=== PATIENT | male | born 1935 | race Caucasian/White ===

== ENCOUNTER 2021-01-02 11:44 | Emergency (ER) | payer MEDICARE, OTHER, SELFPAY ==
[2021-01-02 11:55] VITALS: BP 143/68; PULSE 68; RESP 18; TEMP 36.4; O2SAT 96; BMI 28.5
--- NOTE | 2021-01-02 12:06 | ECG_ITS ---
Test Reason : DIZZINESS Blood Pressure : / mmHG Vent. Rate : 063 BPM Atrial Rate : 063 BPM P-R Int : 146 ms QRS Dur : 078 ms QT Int : 402 ms P-R-T Axes : 044 -25 005 degrees QTc Int : 411 ms Normal sinus rhythm Inferior infarct , age undetermined Abnormal ECG No previous ECGs available Referred By: Generic ED Physician Electronically Signed By:Mani Domínguez
[2021-01-02 12:42] LABS: Glucose, Whole Blood 144 mg/dL (60-115)
[2021-01-02 12:43] LABS: MANUAL DIFF FLAG NO
[2021-01-02 12:53] LABS: Prothrombin Time 12.4 SEC (10.8-13.0)
[2021-01-02 13:18] LABS: Anion Gap 14 (12-20); Blood Urea Nitrogen 20 mg/dL (9-16); Calcium 9.3 mg/dL (8.4-10.2); Carbon Dioxide 21 mmol/L (22-29); Chloride 106 mmol/L (96-108); Creatinine Clr Calc Pharmacy 50.4; Estimated Glomerular Filt Rate > 60; Glucose Random 114 mg/dL (60-115); Potassium 4.4 mmol/L (3.3-5.1); Sodium 137 mmol/L (135-145)
[2021-01-02 13:23] LABS: Troponin-I High Sensitivity < 3.5 ng/L (<3.5-35.0)
[2021-01-02 14:33] LABS: Basophils Absolute Auto 0.1 X10*3/uL (0.0-0.2); Basophils Percent Auto 0.9 % (0-2); Eosinophils Absolute Auto 0.1 X10*3/uL (0.0-0.4); Eosinophils Percent Auto 1.4 % (0-4); Hematocrit 43.7 % (42-52); Hemoglobin 14.6 g/dl (14.0-18.0); Imm Gran Abs Auto 0.02 X10*3/uL (0.00-0.03); Imm Gran Pct Auto 0.2 % (0.0-0.4); Lymphocytes Absolute Auto 1.5 X10*3/uL (1.2-4.9); Lymphocytes Percent Auto 16.1 % (20-40); Mean Corpuscular HGB Conc 33.4 g/dl (31.0-36.0); Mean Corpuscular Hemoglobin 31.3 pg (27.0-33.0); Mean Corpuscular Volume 93.8 fL (80-98); Mean Platelet Volume 9.4 fL (9.4-12.4); Monocytes Absolute Auto 0.6 X10*3/uL (0.1-1.2); Neutrophils Absolute Auto 6.9 X10*3/uL (2.0-8.3); Neutrophils Percent Auto 75.4 % (45-73); Platelet Count 279 X10*3/uL (160-400); Red Blood Count 4.66 X10*6/uL (4.60-5.80); Red Cell Distribution Width 12.7 % (11.0-16.0); White Blood Count 9.1 X10*3/uL (4.8-10.8)
--- NOTE | 2021-01-02 14:49 | ECG_ITS ---
Test Reason : FALL Blood Pressure : / mmHG Vent. Rate : 076 BPM Atrial Rate : 076 BPM P-R Int : 156 ms QRS Dur : 076 ms QT Int : 388 ms P-R-T Axes : 099 -10 022 degrees QTc Int : 436 ms Sinus rhythm with occasional Premature ventricular complexes Inferior infarct (cited on or before 02-JAN-2021) Abnormal ECG When compared with ECG of 02-JAN-2021 12:27, Premature ventricular complexes are now Present Referred By: Hayde Alcantar Electronically Signed By:Mani Domínguez
--- NOTE | 2021-01-02 15:30 | ED_ITS ---
HPI - Dizziness General Chief Complaint: Dizziness Stated Complaint: fall Time Seen by Provider: 01/02/21 14:48 Source: patient and family () Mode of arrival: ambulatory Limitations: no limitations History of Present Illness HPI Narrative: Patient is an 85-year-old male the past medical history of diabetes, HTN and gout who presents with 1 week of on and off dizziness. He reports it is worse with positional changes, but today when he was walking into his living room, he suddenly became dizzy and had to hang on to items to avoid falling. He did not fall, hit his head or lose consciousness. He describes the dizziness as in being off balance. He has been managing it by taking his time getting out of bed with the a few minutes before changing positions and it has been fine until this morning when it happened while he was walking. He denies any chest pain, shortness of breath, fevers, cough, headache, abdominal pain, changes in his bladder or bowels. He states he has been eating and drinking his normal amount and did have breakfast this morning. Does note that when the dizziness happened, it was before he ate breakfast. He did not check his blood sugar before he ate breakfast and after breakfast it was reportedly 144. He denies any new medications. Related Data Allergies Allergy/AdvReac Type Severity Reaction Status Date / Time No Known Allergies Allergy Verified 01/02/21 12:05 Review of Systems Review of Systems: Yes all other systems are reviewed and are negative [facility] Past Medical History Medical History Diabetes Gout Hypertension Social History Social History Advance Directives: No Advance Directives Information Provided: No Physical Exam Vital Signs: Vital Signs: Last Vital Signs Temp 97.5 F 01/02/21 11:55 Pulse 68 01/02/21 11:55 Resp 18 01/02/21 11:55 BP 143/68 H 01/02/21 11:55 Pulse Ox 96 01/02/21 11:55 Body Mass Index 28.5 Const: General: cooperative, healthy appearing, comfortable, no acute distress and well developed Orientation/consciousness: patient oriented x3 Limitations: no limitations HENMT: Head: Yes normal to inspection Eyes: General: appearance normal, both eyes and all related structures Neck: Neck: Yes normal visual inspection and Yes full ROM Resp: Effort & Inspection: normal respiratory effort and able to speak in complete sentences Auscultation: clear to auscultation bilaterally Cardio: Rate: regular rate Rhythm: regular rhythm Heart sounds: normal S1 and S2 GI: Inspection: Yes normal to inspection Palpation (GI): Soft to palpation and nontender Skin: General skin exam: no rashes or lesions noted Neuro: General: patient oriented x3 Cranial nerves: Yes CN's II-XII intact bilaterally Motor exam (neuro): 5/5 motor strength present throughout and Pronator motor function not present Extrem: General: Yes normal to inspection Course Course Course Narrative: Patient is an 85-year-old male the past medical history of diabetes, HTN and gout who presents with 1 week of on and off dizziness, feeling off balance. VSS sans slightly elevated BP. PE was unremarkable. Will get EKG, orthostatics, labs, CXR and reassess. Reevaluation(s) Reevaluation #1: Notified by x-ray tech that patient is declining chest x-ray and is leaving. Patient approached an employee, told her he was leaving an asked her to cut off his wrist bracelet. Patient eloped. Labs WNL, UA negative. Orthostatic blood pressures were ordered but appear not to have been done yet. EKG normal sinus rhythm with PVCs 76 B p.m. and inferior infarct age undetermined. Time: 16:00 [facility] - Dizziness Medical Records Attestation: I reviewed the patient's medical records. Lab Data Attestation: I reviewed the patient's lab results. Result diagrams: 01/02/21 12:34 01/02/21 12:34 Labs: Lab Results 01/02/21 01/02/21 01/02/21 Range/Units 12:33 12:34 12:34 WBC 9.1 (4.8-10.8) X10*3/uL RBC 4.66 (4.60-5.80) X10*6/uL Hgb 14.6 (14.0-18.0) g/dl Hct 43.7 (42-52) % MCV 93.8 (80-98) fL MCH 31.3 (27.0-33.0) pg MCHC 33.4 (31.0-36.0) g/dl RDW 12.7 (11.0-16.0) % Plt Count 279 (160-400) X10*3/uL MPV 9.4 (9.4-12.4) fL Immature Gran % (Auto) 0.2 (0.0-0.4) % Neut % (Auto) 75.4 H (45-73) % Lymph % (Auto) 16.1 L (20-40) % [place] % (Auto) 6.0 (2-11) % Eos % (Auto) 1.4 (0-4) % Baso % (Auto) 0.9 (0-2) % Lymph # (Auto) 1.5 (1.2-4.9) X10*3/uL [place] # (Auto) 0.6 (0.1-1.2) X10*3/uL Eos # (Auto) 0.1 (0.0-0.4) X10*3/uL Baso # (Auto) 0.1 (0.0-0.2) X10*3/uL Abs Immat Gran (auto) 0.02 (0.00-0.03) X10*3/uL Absolute Neuts (auto) 6.9 (2.0-8.3) X10*3/uL Absolute Nucleated RBC 0.000 (0.0-0.012) X10*3/uL Nucleated RBC % (auto) 0.0 (0.0-0.2) /100WBC PT 12.4 (10.8-13.0) SEC INR 1.0 (0.9-1.1) Sodium (135-145) mmol/L Potassium (3.3-5.1) mmol/L Chloride (96-108) mmol/L Carbon Dioxide (22-29) mmol/L Anion Gap (12-20) BUN (9-16) mg/dL Creatinine (0.5-1.4) mg/dL Estim Creat Clear Calc Estimated GFR POC Glucose 144 H (60-115) mg/dL Random Glucose (60-115) mg/dL Calcium (8.4-10.2) mg/dL Troponin I High Sens (<3.5-35.0) ng/L Urine Color Urine Appearance Urine pH (5.0-8.0) Ur Specific [place] (1.005-1.025) Urine Protein (NEG-TRACE) MG/DL Urine Glucose (UA) (NEG) MG/DL Urine Ketones (NEG) MG/DL Urine Blood (NEG) Urine Nitrite (NEG) Ur Leukocyte Esterase (NEG) 01/02/21 01/02/21 01/02/21 Range/Units 12:34 12:34 15:38 WBC (4.8-10.8) X10*3/uL RBC (4.60-5.80) X10*6/uL Hgb (14.0-18.0) g/dl Hct (42-52) % MCV (80-98) fL MCH (27.0-33.0) pg MCHC (31.0-36.0) g/dl RDW (11.0-16.0) % Plt Count (160-400) X10*3/uL MPV (9.4-12.4) fL Immature Gran % (Auto) (0.0-0.4) % Neut % (Auto) (45-73) % Lymph % (Auto) (20-40) % [place] % (Auto) (2-11) % Eos % (Auto) (0-4) % Baso % (Auto) (0-2) % Lymph # (Auto) (1.2-4.9) X10*3/uL [place] # (Auto) (0.1-1.2) X10*3/uL Eos # (Auto) (0.0-0.4) X10*3/uL Baso # (Auto) (0.0-0.2) X10*3/uL Abs Immat Gran (auto) (0.00-0.03) X10*3/uL Absolute Neuts (auto) (2.0-8.3) X10*3/uL Absolute Nucleated RBC (0.0-0.012) X10*3/uL Nucleated RBC % (auto) (0.0-0.2) /100WBC PT (10.8-13.0) SEC INR (0.9-1.1) Sodium 137 (135-145) mmol/L Potassium 4.4 (3.3-5.1) mmol/L Chloride 106 (96-108) mmol/L Carbon Dioxide 21 L (22-29) mmol/L Anion Gap 14 (12-20) BUN 20 H (9-16) mg/dL Creatinine 1.12 (0.5-1.4) mg/dL Estim Creat Clear Calc 50.4 Estimated GFR > 60 POC Glucose (60-115) mg/dL Random Glucose 114 (60-115) mg/dL Calcium 9.3 (8.4-10.2) mg/dL Troponin I High Sens < 3.5 (<3.5-35.0) ng/L Urine Color YELLOW Urine Appearance CLEAR Urine pH 6.0 (5.0-8.0) Ur Specific [place] 1.010 (1.005-1.025) Urine Protein NEG (NEG-TRACE) MG/DL Urine Glucose (UA) NEG (NEG) MG/DL Urine Ketones NEG (NEG) MG/DL Urine Blood NEG (NEG) Urine Nitrite NEG (NEG) Ur Leukocyte Esterase NEG (NEG) ECG Data Attestation: I personally reviewed and interpreted this ECG as follows: Interpretation: [place] [id number] ReportDraft Patient: Kevon Montiel LMR#: [id number]: 1935cct:[id number]/Sex: 85 / MADM Date: 01/02/21Loc: [address]: Ordering Physician: Kailash ED Physician Date of Service: 01/02/21 Procedure(s): ECG 12 lead EKG Accession Number(s): [id number] cc: ~ Test Reason : DIZZINESS Blood Pressure : / mmHG Vent. Rate : 063 BPM Atrial Rate : 063 BPM P-R Int : 146 ms QRS Dur : 078 ms QT Int : 402 ms P-R-T Axes : 044 -25 005 degrees QTc Int : 411 ms Normal sinus rhythm Inferior infarct , age undetermined Abnormal ECG No previous ECGs available Referred By: Generic ED Physician Electronically Signed By: Dictated By:Signed By: RENETTA/ [id number] Discharge Plan Discharge Clinical Impression: Dizziness Patient Disposition: Elopement Discharge Date/Time: 01/02/21 16:02
[2021-01-02 15:50] LABS: Glucose Urine UA NEG (NEG); Leukocyte Esterase Urine NEG (NEG); Nitrite Urine NEG (NEG); Urine Blood NEG (NEG); Urine Ketones NEG (NEG); Urine Protein NEG (NEG-TRACE)
[2021-01-02 15:53] LABS: Appearance Urine CLEAR; Color Urine YELLOW
== END 2021-01-02 16:02 | disposition left against medical advice (07) ==
PROVIDERS: Physician Assistant; Emergency Provider Emergency Medicine Emergency Medical Services; PCP Internal Medicine
DX: R42 Dizziness and giddiness (principal); I10 Essential (primary) hypertension; E11.9 Type 2 diabetes mellitus without complications; Z79.899 Other long term (current) drug therapy
CPT/HCPCS: 36415; 80048; 81003; 82947; 84484; 85025; 85610; 93005; 99283

== ENCOUNTER 2021-05-28 18:00 | Outpatient (REF) | payer MEDICARE, OTHER, SELFPAY ==
--- NOTE | ~2021-05-28 | MR_ITS ---
EXAMINATION: MR BRAIN WITHOUT CONTRAST CLINICAL INFORMATION: 86-year-old with memory loss. COMPARISON: None FINDINGS: Brain Volume: There is moderate generalized diffuse brain parenchymal volume loss without disproportionate focal regional predominance within the limitations of a qualitative evaluation. Structural: No malformations. Brain and Meninges: DWI sequence demonstrates no restricted diffusion. Specifically, there is no evidence for acute or subacute cerebral ischemia/infarct. There are scattered patchy and punctate foci of FLAIR/T2 signal hyperintensity within the subcortical and deeper white matter of both cerebral hemispheres which are nonspecific findings but likely reflect zones of chronic ischemic microangiopathy in a patient of this age. There is prominent etat crible in the basal ganglia bilaterally. Note is made of a subcentimeter, bilobed cystic-appearing structure with some adjacent parenchymal T2 hyperintensity suggesting parenchymal gliosis located in the right cerebellar hemisphere adjacent to the inferior fourth ventricle, which is a nonspecific finding, likely of a benign etiology. There is a band-like zone of T2 hyperintensity within the right lingual and parahippocampal gyri without mass effect, which is of uncertain etiology. There is no evidence for hemorrhage, hemosiderin staining or abnormal mineral deposition. No extra-axial fluid collections are identified. Ventricles and Subarachnoid Spaces: There is a mild degree of third and lateral ventriculomegaly, likely reflecting volume loss. No definite hydrocephalus. Orbital Structures: Bilateral lens extractions are noted. Otherwise, the visualized orbital structures are grossly unremarkable within the limitations of the study. Vascular: Signal voids are noted in the visualized major intracranial vessels. Sinuses and Osseous Structures: Osseous marrow signal intensity appears unremarkable. There are mild degrees of mucosal thickening in the ethmoid complex and maxillary sinuses, and there is [id number] mucosal thickening in the sphenoid sinus on the right with probable inspissated secretions. MR/MR head/brain wo con IMPRESSION: 1. Moderate generalized diffuse brain parenchymal volume loss, as described above. 2. 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 Recommend additional imaging with contrast to further assess this at this point. 3. Small cystic focus in the right cerebellar hemisphere adjacent to the inferior fourth ventricle within the brain parenchyma. This could be related to a remote insult of indeterminate nature. Neoplastic disease is considered less likely. This can also be reevaluated on contrast-enhanced study. 4. Paranasal sinus inflammatory changes, as detailed above.
== END 2021-05-28 18:01 | disposition home or self-care (01) ==
LOC: HO.MRI 18:00
PROVIDERS: PCP Internal Medicine; Visit Provider Internal Medicine
DX: R41.3 Other amnesia (principal)
CPT/HCPCS: 70551

== ENCOUNTER 2021-06-16 12:02 | Outpatient (REF) | payer MEDICARE, OTHER, SELFPAY ==
--- NOTE | ~2021-06-16 | MR_ITS ---
EXAMINATION: MR BRAIN WITHOUT CONTRAST CLINICAL INFORMATION: Memory problems. Word finding difficulty. COMPARISON: Recent prior MRI from 05/28/2021. TECHNIQUE: Multiplanar, multisequence imaging of the brain was performed without contrast. FINDINGS: There is no abnormal parenchymal or leptomeningeal enhancement. Moderate diffuse parenchymal volume loss noted with concordant ex vacuo dilatation of the ventricles, as on recent prior imaging. The orbits and pituitary axis structures appear normal. Fluid level and significant mucosal thickening again evident in the right sphenoid sinus cavity. Small T2 hyperintense foci described on prior imaging in the right cerebellar white matter are without enhancement and remain indeterminate. No abnormal enhancement visible in the posterior mesial temporal lobe on the left side corresponding to the site of hyperintense signal change on prior imaging. MR/MR head/brain w con IMPRESSION: No abnormal parenchymal or leptomeningeal enhancement. No acute process. Signal abnormality in the posterior right hippocampus on the prior study remains indeterminate. In the setting of prior recent seizure activity, findings could be post ictal in etiology, and clinical correlation is suggested. Short interval follow-up imaging can be obtained to assess for resolution or interval change. Stable significant right sphenoid sinus mucosal disease and dependent fluid level; correlate for any acute symptomatology.
== END 2021-06-16 12:03 | disposition home or self-care (01) ==
LOC: HO.MRI 12:02
PROVIDERS: Visit Provider Internal Medicine
DX: R93.0 Abnormal findings on diagnostic imaging of skull and head, not elsewhere classified (principal); R41.3 Other amnesia; R47.89 Other speech disturbances
CPT/HCPCS: 70552; A9585

== ENCOUNTER 2021-07-19 15:07 | Outpatient (REF) | payer MEDICARE, OTHER, SELFPAY ==
[2021-07-19 16:49] LABS: Vitamin B12 730 pg/mL (200-900)
== END 2021-07-19 15:08 | disposition home or self-care (01) ==
LOC: HO.LAB 15:07
PROVIDERS: PCP Internal Medicine; Visit Provider Psychiatry & Neurology Neurology
DX: G30.9 Alzheimer's disease, unspecified (principal)
CPT/HCPCS: 36415; 82607

== ENCOUNTER 2021-07-24 09:54 | Emergency (ER) | payer MEDICARE, OTHER, SELFPAY ==
--- NOTE | ~2021-07-24 | XR_ITS ---
EXAMINATION: LEFT RIBS AND LEFT FOREARM CLINICAL INFORMATION: Fall with pain COMPARISON: Chest x-ray of March 11, 2019 TECHNIQUE: AP and lateral views of the left forearm. PA chest and 3 views of the left ribs. FINDINGS: AP and lateral views of the left forearm demonstrate a mildly displaced comminuted transverse fracture at the junctions of the mid and distal thirds of the ulna without significant angulation and with 3 mm of medial displacement of the distal fracture fragment. No regional fracture appreciated. PA view of the chest demonstrates left lower lobe and lingular scarring. No acute parenchymal disease is appreciated. No pneumothorax or significant pleural effusion. Heart normal size. No evidence of pulmonary edema. Status post previous chest surgery with clips in place.There is scoliosis of the thoracic spine convex left. 3 views of the left ribs demonstrate subpleural thickening and irregularity of a few superior left ribs posterior laterally consistent with previous fractures or surgery with what appears to be partial resection of posterior aspect of the left third rib. There is question of a possible acute or chronic anterior fracture of the left seventh rib. There appears be an acute nondisplaced fracture involving the anterior aspect of the left ninth rib. XR/XR ribs LT min 3V w CXR1V IMPRESSION: Transverse fracture junctions of the mid and distal thirds of the left ulna. Old left-sided rib fractures and resection. Probable nondisplaced anterior left ninth rib fracture.
--- NOTE | ~2021-07-24 | XR_ITS ---
EXAMINATION: LEFT RIBS AND LEFT FOREARM CLINICAL INFORMATION: Fall with pain COMPARISON: Chest x-ray of March 11, 2019 TECHNIQUE: AP and lateral views of the left forearm. PA chest and 3 views of the left ribs. FINDINGS: AP and lateral views of the left forearm demonstrate a mildly displaced comminuted transverse fracture at the junctions of the mid and distal thirds of the ulna without significant angulation and with 3 mm of medial displacement of the distal fracture fragment. No regional fracture appreciated. PA view of the chest demonstrates left lower lobe and lingular scarring. No acute parenchymal disease is appreciated. No pneumothorax or significant pleural effusion. Heart normal size. No evidence of pulmonary edema. Status post previous chest surgery with clips in place.There is scoliosis of the thoracic spine convex left. 3 views of the left ribs demonstrate subpleural thickening and irregularity of a few superior left ribs posterior laterally consistent with previous fractures or surgery with what appears to be partial resection of posterior aspect of the left third rib. There is question of a possible acute or chronic anterior fracture of the left seventh rib. There appears be an acute nondisplaced fracture involving the anterior aspect of the left ninth rib. XR/XR forearm LT 2V IMPRESSION: Transverse fracture junctions of the mid and distal thirds of the left ulna. Old left-sided rib fractures and resection. Probable nondisplaced anterior left ninth rib fracture.
[2021-07-24 10:19] VITALS: BP 131/77; PULSE 80; RESP 16; TEMP 36.8; O2SAT 95; BMI 29.7
--- NOTE | 2021-07-24 10:32 | ED.GENADULT ---
HPI - General Adult General Chief complaint: General Medical Stated complaint: fall l arm ribs Time Seen by Provider: 07/24/21 10:18 Source: patient Mode of arrival: ambulatory Limitations: no limitations History of Present Illness HPI narrative: 86-year-old male who presents to emergency department for evaluation of injuries after a fall down icy steps. Patient states that he has 3 steps leading out of his house. He states that they were IC and he fell from the top step down 3 steps. He landed on his left arm and on the left side of his chest. He denied any head injury. The injury occurred just prior to him coming to the emergency department. He is currently complaining of a sharp, moderate to severe left forearm pain. Points to the distal 3rd of his forearm very has a small hematoma when asked to localize the pain. He is also complaining left lateral and left posterior chest pain. This is a constant, sharp pain which is moderate in intensity, worse with breathing worse with movement. He denied any head injury. He denies headache and neck pain. He denies shortness of breath or dyspnea on exertion. He states that he was not ill prior to the fall. He has been vaccinated with 2 COVID-19 vaccines and also received a booster vaccine. Related Data Allergies Allergy/AdvReac Type Severity Reaction Status Date / Time No Known Allergies Allergy Unverified 04/16/20 14:58 Review of Systems Review of Systems: Yes all other systems are reviewed and are negative [facility] Past Medical History [facility] Narrative: Past medical history: Diabetes mellitus. Past surgical history benign left lung tumor. Social history: He is a former tobacco user. He stops smoking when he was 36 years old. He denies drug use. Medical History (Updated 07/24/21 @ 12:13 by Dennis Wiggins MD) Diabetes Social History Social History Advance Directives: Yes Advance Directives Information Provided: Yes Advance Directives on File: No Physical Exam Vital Signs: Vital Signs: Last Vital Signs Temp 98.2 F 07/24/21 10:19 Pulse 80 07/24/21 10:19 Resp 16 07/24/21 10:19 BP 131/77 07/24/21 10:19 Pulse Ox 95 07/24/21 10:19 BMI result Body Mass Index 29.7 Const: General: cooperative and no acute distress Orientation/consciousness: oriented to person and oriented to place Limitations: no limitations HENMT: Head: Yes normal to inspection, Yes normocephalic and Yes atraumatic Ears: external ears normal General nose exam: Normal external nose present Face and sinus: Yes normal facial exam Mouth: Normal oral and palatal mucosa present Throat: Yes posterior oropharynx normal Eyes: General: appearance normal, both eyes and all related structures Pupils: Equal, round and reactive pupils present Neck: Neck: Yes normal visual inspection, Yes no lymphadenopathy, Yes trachea midline and Yes supple Chest: Other: The patient has no ecchymosis or crepitus to his left chest wall he does have tenderness with palpation of his left lateral left posterior chest. Resp: Effort & Inspection: normal respiratory effort and able to speak in complete sentences Auscultation: clear to auscultation bilaterally Cardio: Rate: regular rate Rhythm: regular rhythm Heart sounds: S1 normal heart sound present, S2 normal heart sound present and no murmurs GI: Inspection: Yes normal to inspection Palpation (GI): Soft to palpation, nontender and no guarding Auscultation: normal bowel sounds : General: Yes no CVA tenderness Back/Spine/Pelvis: Back: no CVA tenderness Skin: General skin exam: no rashes or lesions noted Neuro: General: oriented to person and oriented to place Cranial nerves: Yes CN's II-XII intact bilaterally and Yes Equal, round and reactive pupils present Cognition (Neuro): normal cognition Motor exam (neuro): 5/5 motor strength present throughout Extrem: Other: The patient's left upper extremity revealed a hematoma to the distal 3rd of the left forearm, this area is tender to palpation, the patient's extremities neurovascular intact. His other extremities were examined and were unremarkable. Psych: Appearance: grossly normal Speech and movement: Normal speech and movement present Affect: normal affect Attitude: cooperative Thought process: Normal thought process present Thought content: Normal thought content present Course Course Course Narrative: 86-year-old male who presents emergency department for a slip and fall down 3 icy steps at his home. This fall occurred prior to him coming to the emergency department. He had no head injury. He is currently complaining of left forearm and left chest pain. Patient's examination did reveal hematoma to the left forearm the distal 3rd as well as tenderness palpation of his left lateral and posterior chest. I ordered a left forearm x-ray and a left chest x-ray with rib series. Patient's pain was treated with Tylenol 975 mg orally 1200: The patient's chest x-ray with left rib series revealed no pneumothorax, the radiologist noted a left 9th nondisplaced rib fracture pain. I did discuss this with the patient. I created a rib belt using an 8 in Charbel wrap in this did improve the patient's pain. The patient's left forearm x-ray as interpreted by the radiologist: a mildly displaced,comminuted transverse fracture at the junctions of the mid and distal thirds of the ulna without significant angulation and with 3 mm of medial displacement of the distal fracture fragment . I did discuss this fracture with the patient as well the patient was placed in a padded ortho glass sugar-tong splint. The patient was discharged home with verbal and printed instructions. He is to follow-up with the orthopedic doctor in 1 week for re-evaluation casting. He was advised to take Tylenol for pain. Discharge Plan Discharge Clinical Impression: Fall, Closed fracture of shaft of left ulna, Left rib fracture Patient Disposition: Home, Self-Care Instructions: Rib Fracture (ED), Arm Fracture in Adults (ED) Additional Instructions: You broke/fractured the ulnar bone of your left forearm. You broke/fractured the 9th rib on the left side of your chest. Wear the fiberglass splint on your left forearm until you follow-up with the orthopedic doctor's, the orthopedic doctor's will re-evaluate you and place you in a cast. You will need to be in a cast for 4-6 weeks. Wear the Charbel wrap or purchase a rib belt to wear around your chest to help with your rib pain. This is for your comfort only, if you have no discomfort or you do not think that the Charbel wrap is helping you can remove it. You can also rapid on wrap yourself as needed. Take Tylenol (acetaminophen) 500 mg pills, 2 pills every 6 hours as needed for pain. Follow-up with our orthopedic doctor within 1 week for re-evaluation and possible casting. Please return to the emergency department if your symptoms get worse or if you develop any symptoms that are concerning to you. Referrals: Olayinka Rosa MD [Physician] - 1 week
[2021-07-24] MEDS: Acetaminophen 325 MG TABLET 975 MG PO (10:43)
== END 2021-07-24 12:44 | disposition home or self-care (01) ==
PROVIDERS: Emergency Provider Emergency Medicine Emergency Medical Services; PCP Internal Medicine
DX: S52.202A Unspecified fracture of shaft of left ulna, initial encounter for closed fracture (principal); S22.32XA Fracture of one rib, left side, initial encounter for closed fracture; E11.9 Type 2 diabetes mellitus without complications; W00.1XXA Fall from stairs and steps due to ice and snow, initial encounter; Y93.9 Activity, unspecified; Y92.009 Unspecified place in unspecified non-institutional (private) residence as the place of occurrence of the external cause; Y99.9 Unspecified external cause status
CPT/HCPCS: 29125; 71101; 73090; 99283; 99284

== ENCOUNTER → 2021-07-27 12:06 | Outpatient (BNVA) | payer MEDICARE, OTHER, SELFPAY | PROVIDERS: PCP Internal Medicine; Visit Provider Physician Assistant | DX: S52.202A Unspecified fracture of shaft of left ulna, initial encounter for closed fracture (principal) | CPT/HCPCS: 99202 ==

== ENCOUNTER → 2021-08-11 09:06 | Day surgery (SDC) | payer MEDICARE, OTHER, SELFPAY ==
--- NOTE | 2021-08-03 09:54 | HO.ANESPROP2 ---
HPI - Anesthesia Eval Consult details Narrative: 86yo M for Left Ulna Fracture ORIF PMFSH Active Problems Active Problems: All Active Problems (Updated 08/01/21 @ 17:34 by Boris Hernandez PA-C) Fracture of shaft of left ulna (Acute) Past Medical History Medical History Diabetes Social History Social History (Updated 07/27/21 @ 12:17 by Brice Zaman) Current occupational status: retired Current occupation: rt handed Meds Allergies Allergy/AdvReac Type Severity Reaction Status Date / Time No Known Allergies Allergy Verified 07/27/21 12:17 Home Medications Medication Instructions Recorded Confirmed Last Taken Type Unobtainable 07/27/21 07/27/21 Unknown History Exam Exam Date and Time: August 03, 2021 0954 Assessment and Plan Assessment Anesthesia Assessment: Chart Reviewed
[2021-08-11 09:39] VITALS: BMI 29.2
[2021-08-11 10:14] VITALS: BP 118/61; PULSE 68; RESP 16; TEMP 36.7; O2SAT 97
[2021-08-11 10:14] LABS: Anion Gap 13 (12-20); Blood Urea Nitrogen 24 mg/dL (9-16); Calcium 9.8 mg/dL (8.4-10.2); Carbon Dioxide 21 mmol/L (22-29); Chloride 102 mmol/L (96-108); Creatinine Clr Calc Pharmacy 46.9; Estimated Glomerular Filt Rate 60; Glucose Fasting 123 mg/dL (60-99); Potassium 4.7 mmol/L (3.3-5.1); Sodium 131 mmol/L (135-145)
--- NOTE | 2021-08-11 10:51 | PC.NURSE ---
Dr. Rosa at bedside. Case discussed with patient and daughter. Decision made to not proceed with procedure. IV removed, tolerated well.
== END ==
PROVIDERS: Anesthesiology; PCP Internal Medicine; Visit Provider Orthopaedic Surgery
DX: S52.202A Unspecified fracture of shaft of left ulna, initial encounter for closed fracture (principal); Z53.09 Procedure and treatment not carried out because of other contraindication; X58.XXXA Exposure to other specified factors, initial encounter; Y93.9 Activity, unspecified; Y92.9 Unspecified place or not applicable; Y99.8 Other external cause status
CPT/HCPCS: 36415; 80048; J0690

== ENCOUNTER 2021-08-23 07:50 | Outpatient (REF) | payer MEDICARE, OTHER, SELFPAY | END 2021-08-23 07:51 | disposition home or self-care (01) | LOC: HO.HOSX 07:50 | PROVIDERS: Visit Provider Physician Assistant | DX: Z13.89 Encounter for screening for other disorder (principal) ==

== ENCOUNTER 2021-09-09 06:39 | Outpatient (REF) | payer MEDICARE, OTHER, SELFPAY ==
--- NOTE | ~2021-09-09 | XR_ITS ---
EXAMINATION: XR FOREARM, LEFT CLINICAL INFORMATION: Ulna fracture COMPARISON: Previous x-ray June 2021 TECHNIQUE: AP and lateral views of the left forearm were obtained. FINDINGS: There is a transverse minimally displaced fracture of the distal shaft of the ulna. Alignment appears unchanged. Fracture line is still seen. There is increased bony callus formation suggestive of evidence of healing. No other fracture is seen. Joint spaces are normal. Soft tissues are normal. XR/XR forearm LT 2V IMPRESSION: Healing fracture of the distal shaft of the left ulna.
== END 2021-09-09 06:40 | disposition home or self-care (01) ==
LOC: HO.HOSX 06:39
PROVIDERS: Visit Provider Physician Assistant
DX: S52.202D Unspecified fracture of shaft of left ulna, subsequent encounter for closed fracture with routine healing (principal); Z79.899 Other long term (current) drug therapy; X58.XXXD Exposure to other specified factors, subsequent encounter
CPT/HCPCS: 73090; 99212

== ENCOUNTER 2021-10-21 08:18 | Outpatient (REF) | payer MEDICARE, OTHER, SELFPAY ==
--- NOTE | ~2021-10-21 | XR_ITS ---
EXAMINATION: XR FOREARM, LEFT CLINICAL INFORMATION: Follow-up fracture. COMPARISON: 09/09/2021. TECHNIQUE: AP and lateral views of the left forearm were obtained. FINDINGS: Once again fracture is seen in the distal ulna. There is internal and external callus felt to be present. No significant change in fracture fragment position. No acute finding XR/XR forearm LT 2V IMPRESSION: Once again fracture in the distal ulna. External callus is seen. Fracture line still well visible. No change in fragment position.
== END 2021-10-21 08:19 | disposition home or self-care (01) ==
LOC: HO.HOSX 08:18
PROVIDERS: Visit Provider Physician Assistant
DX: S52.202D Unspecified fracture of shaft of left ulna, subsequent encounter for closed fracture with routine healing (principal)
CPT/HCPCS: 73090; 99212

== ENCOUNTER 2022-01-23 03:33 | Emergency (ER) | payer MEDICARE, OTHER, SELFPAY ==
--- NOTE | ~2022-01-23 | CT_ITS ---
EXAMINATION: CT CHEST WITHOUT CONTRAST CLINICAL INFORMATION: Left-sided rib pain status post fall. COMPARISON: Left rib radiographs 07/24/2021 TECHNIQUE: Multidetector volumetric CT imaging of the chest was done. Axial MIP volume rendering provided. Sagittal and coronal reformatted images were obtained. This CT examination was performed using dose optimization techniques as appropriate, variously including the following: *Automated exposure control *Adjustment of mA and/or kV according to patient size (this includes techniques or standardized protocols for targeted exams where dose is matched to indication/reason for exam; i.e. extremities or head) *Use of iterative reconstruction technique DLP: 394 mGy-cm FINDINGS: Lungs and pleura: Biapical subpleural bullous changes are present. Centrilobular emphysematous changes are noted. A 2 cm diameter noncalcified dense soft tissue nodule with spiculated margins is present anteriorly within the periphery of the lingula. (Series 4 image 31). Elsewhere in the lungs, minimal scattered subpleural reticular nodular opacities are noted and may represent chronic parenchymal scarring. Mediastinum: Scattered mediastinal vascular clips are noted. No lymphadenopathy identified. Marked diffuse coronary artery calcific atherosclerosis. Normal heart size. No pericardial thickening or fluid collections. CHEST WALL: No axillary lymphadenopathy. Incidentally visualized abdominal structures: Normal adrenal glands. Osseous structures: Minimally displaced fractures of the lateral segments of the left 5-8 ribs are noted. 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 Partially healed fractures with callus formation of the posterolateral segments of the left eighth, ninth and 10th ribs noted. CT/CT chest wo con IMPRESSION: *2 cm spiculated nodule within the lingula of the left upper pulmonary lobe suspicious for neoplasm. No mediastinal lymphadenopathy. No pleural effusions. *Minimally displaced fractures of the left 5-10th ribs with callus formation noted in association with the fractures of the left eighth-10th ribs suggesting that these fractures may be subacute. No callus formation is noted with the other fractures. *Bullous centrilobular emphysema. This result with regards to possible pulmonary neoplasm and multiple left rib fractures was discussed with Hodan Lynn DO by telephone at 01/23/2022 6:27 AM and it was ascertained that the content and urgency of the report was understood at the time of direct communication.
[2022-01-23 03:56] VITALS: BMI 28.1
[2022-01-23 04:05] VITALS: BP 137/65; PULSE 54; RESP 16; TEMP 36.6; O2SAT 98
[2022-01-23 04:05] LABS: Glucose, Whole Blood 72 mg/dL (60-115)
--- NOTE | 2022-01-23 04:06 | ED_ITS ---
HPI - Fall General Chief Complaint: Fall Stated Complaint: Fall Broken Rib? Time Seen by Provider: 01/23/22 03:49 Source: patient and family Mode of arrival: ambulatory Limitations: no limitations History of Present Illness HPI Narrative: 86 yo male with hx of HTN, DM, HLD, not on blood thinners reports a mechanical fall at home where he tripped and hit his left ribs on table at home - no other injuries, no head or neck injury no LOC. MD complaint: fall Onset (ago): hour(s) (1) Fall from: standing Fall witnessed: no Place fall occurred: home Loss of consciousness: none Prolonged down time: no Symptoms prior to fall: none Context: tripped/slipped Location of injury: chest (left ribs) Severity: moderate Quality: sharp Associated symptoms (after fall): other (rib pain hurts to take a deep breath in) Related Data Home Medications Medication Instructions Recorded Confirmed allopurinol 100 mg tablet 1 tab PO DAILY 08/11/21 09/09/21 amlodipine 2.5 mg tablet 1 tab PO DAILY 08/11/21 09/09/21 aspirin 81 mg capsule 81 mg PO DAILY 08/11/21 09/09/21 lisinopril 20 mg tablet 1 tab PO DAILY 08/11/21 09/09/21 metformin 500 mg tablet,extended 1 tab PO DAILY 08/11/21 09/09/21 release 24 hr pravastatin 40 mg tablet 1 tab PO DAILY 08/11/21 09/09/21 sertraline 25 mg tablet 1 tab PO DAILY 08/11/21 09/09/21 Previous Rx's Medication Instructions Recorded lidocaine 3.5 % topical patch 1 patch topical DAILY PRN pain #10 01/23/22 ea oxycodone 5 mg tablet 5 mg PO TID PRN pain #14 tabs 01/23/22 Allergies Allergy/AdvReac Type Severity Reaction Status Date / Time No Known Allergies Allergy Verified 01/23/22 04:03 Review of Systems Review of Systems: Constitutional : No Fever, No Chills ENT/Mouth : No Ear Pain, No Hoarseness, No sore throat Eyes: No Eye Pain, No Swelling, No Redness, No Foreign Body Cardiovascular : No Chest Pain, No SOB, pos rib pain Respiratory : No Cough, No Dyspnea Gastrointestinal : No Nausea, No Vomiting, No Diarrhea, No abdominal Pain Genitourinary : No Dysuria, No Hematuria Musculoskeletal : no joint pain, No Myalgias, No Joint Swelling Skin : No Skin lacerations, No rash Neuro : No Weakness, No Numbness, No Loss of Consciousness, No Dizziness, No Headache Psych : No Anxiety/Panic, No Depression Heme/Lymph: no easy bruising, no Lymphadenopathy Endocrine : No Polyuria, No Polydipsia All other systems reviewed and are negative [facility] Past Medical History Attestation statement: The following information was validated with the patient. 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 Oriented X3. No acute distress. Eyes: Pupils equal, round and reactive to light. ENT: Pharynx normal. Neck: Normal inspection. Neck supple. CVS: Normal heart rate and rhythm. Pulses normal. Chest wall: ttp along left anterior lateral mid ribs splinting at times Respiratory: No respiratory distress. Breath sounds normal. Abdomen: Soft and nontender. Skin: Skin warm and dry. Normal skin color. Normal skin turgor. Extremities: No lower extremity edema. No calf ttp Neuro: Oriented X 3. No motor deficit. No sensory deficit. Course Course Course Narrative: call from Radiology 626am - multiple 5th - 10th rib fracture subacute to acute - new fractures of 5-7 stable for DC home no severe pain no hypoxia 2cm mass in lingula concern for cancer - patient and notified, RN did IS teaching MDM - Fall MDM Narrative Medical decision making narrative: 86 yo male with hx of HTN, DM, HLD, not on blood thinners reports a mechanical fall isolated injury to left ribs no head or neck/extremity injury. At this time will obtain CT chest to evaluate for rib fractures given age. dispo per results and findings. Lab Data Labs: Lab Results 01/23/22 Range/Units 04:01 POC Glucose 72 (60-115) mg/dL Discharge Plan Discharge Clinical Impression: Rib pain, Fracture, rib, Lung mass Patient Disposition: Home, Self-Care Instructions: Rib Fracture (ED) Additional Instructions: return to ED for any worsening symptoms or concerns take deep breaths even with pain 10 breaths every other hour while awake to prevent pneumonia use incentive spirometer *2 cm spiculated nodule within the lingula of the left upper pulmonary lobe suspicious for neoplasm. No mediastinal lymphadenopathy. No pleural effusions. *Minimally displaced fractures of the left 5-10th ribs with callus formation noted in association with the fractures of the left eighth-10th ribs suggesting that these fractures may be subacute. No callus formation is noted with the other fractures. *Bullous centrilobular emphysema. Prescriptions: New lidocaine 3.5 % adhesive patch,medicated 1 patch topical DAILY PRN (Reason: pain) Qty: 10 0RF oxycodone 5 mg tablet 5 mg PO TID PRN (Reason: pain) Qty: 14 0RF Rx Instructions: Partial Fill upon patient request. No Action lisinopril 20 mg tablet 1 tab PO DAILY amlodipine 2.5 mg tablet 1 tab PO DAILY allopurinol 100 mg tablet 1 tab PO DAILY metformin 500 mg tablet extended release 24 hr 1 tab PO DAILY aspirin 81 mg Capsule 81 mg PO DAILY pravastatin 40 mg tablet 1 tab PO DAILY sertraline 25 mg tablet 1 tab PO DAILY Referrals: Quique Zambrano MD [Primary Care Provider] - 01/24/22
[2022-01-23 06:13] VITALS: BP 120/57; PULSE 54; RESP 20; O2SAT 95
[2022-01-23] MEDS: Lidocaine 4 % Patch ADH..PATCH 1 PATCH TRANSDERMA (06:59)
== END 2022-01-23 07:06 | disposition home or self-care (01) ==
PROVIDERS: Emergency Provider Emergency Medicine; PCP Internal Medicine
DX: S22.42XA Multiple fractures of ribs, left side, initial encounter for closed fracture (principal); R91.8 Other nonspecific abnormal finding of lung field; I10 Essential (primary) hypertension; E11.9 Type 2 diabetes mellitus without complications; G30.9 Alzheimer's disease, unspecified; F02.80 Dementia in other diseases classified elsewhere, unspecified severity, without behavioral disturbance, psychotic disturbance, mood disturbance, and anxiety; W01.190A Fall on same level from slipping, tripping and stumbling with subsequent striking against furniture, initial encounter; Y93.9 Activity, unspecified; Y92.009 Unspecified place in unspecified non-institutional (private) residence as the place of occurrence of the external cause; Y99.9 Unspecified external cause status
CPT/HCPCS: 71250; 82947; 99284

== ENCOUNTER 2022-02-10 13:49 | Outpatient (REF) | payer MEDICARE, OTHER, SELFPAY ==
--- NOTE | 2022-02-10 17:41 | PFT_ITS ---
This patient was here for complete pulmonary function testing. Patient was unable to perform adequate maneuvers despite multiple efforts. The best results obtained are as follows: FVC 99%, FEV1 38%, FEV1/FVC ratio is 26. [id number] 35% and MVV is 14%. Lung volumes could not be performed as soon we see is 97 L. ERV 168. CONCLUSION: The results are not reliable due to very poor effort. However, the available results are consistent with very severe obstructive airway disorder. Clinical correlation is recommended. MD PAULA Tobias/MODL / [id number]
== END 2022-02-10 13:50 | disposition home or self-care (01) ==
LOC: HO.RESP 13:49
PROVIDERS: PCP Internal Medicine; Visit Provider Surgery
DX: Z13.89 Encounter for screening for other disorder (principal)

== ENCOUNTER 2022-02-15 11:08 | Outpatient (REF) | payer MEDICARE, OTHER, SELFPAY ==
--- NOTE | ~2022-02-15 | PE_ITS ---
EXAMINATION: Fluorine-18 FDG PET/CT Scan CLINICAL INDICATION: Initial treatment management. 2 cm spiculated pulmonary nodule involving the lingular segment of the left upper lobe, seen on recent CT of the chest done on 01/23/2022. PROCEDURE: 53 minutes following the intravenous administration of 16.9 mCi of fluorine 18 FDG, images from the base of the skull to the mid thighs were obtained using a combined PET/CT scanner with CT scan based attenuation correction. No intravenous contrast was administered. Transverse, coronal, sagittal, and volume reconstruction projections were obtained. The patient's blood glucose as determined by a finger stick, was 92 mg/dl immediately prior to injection. The radiotracer was injected through the left antecubital superficial vein, without any complication. Total CT exam dose-length product 720.62 mGy-cm * These CT images were obtained using dose optimization techniques as appropriate, variously including the following: Automated exposure control * Adjustment of mA and/or kV according to patient size (this includes techniques or standardized protocols for targeted exams where dose is matched to indication/reason for exam; i.e. extremities or head) * Use of iterative reconstruction technique COMPARISON: CT of the chest done on 01/23/2022. FINDINGS: NECK AND VISUALIZED HEAD: Remarkable for mild increase radiotracer activity near the midline at the posterior aspect of the glottis/supraglottic region (48/267) without any concordant CT detectable underlying mass, may represent physiologic changes. THORAX: The index pleural-based spiculated solid mass measuring approximately 1.6 x 1.6 cm seen involving the lingular segment of the left upper lobe of the lung abutting the overlying pleural surface anterolaterally (85/267) shows increased FDG avidity with maximum SUV value of 8.1, highly suggestive of primary lung malignancy. No evidence of any additional lung parenchymal or metabolically active mediastinal and/or hilar lymphadenopathy identified. Previously documented emphysematous disease predominantly involving both upper lobes appear unchanged. Atherosclerotic disease including coronary artery calcifications are present. Multiple postsurgical clips are noted within the mediastinum. ABDOMEN AND PELVIS: No metabolically active disease is present. Physiologic radiotracer activities are noted within the kidneys, ureter, urinary bladder and bowel. MUSCULOSKELETAL: Remarkable for mild increased radiotracer activities involving the left fifth through eighth ribs, when correlating with the CT images, consistent with acute-subacute fractures. Fractures involving left eighth through ninth ribs associated with callus formations do not show any metabolic activity, consistent with chronic healed fractures. VASCULAR: Diffuse atherosclerotic disease of the aorta and is branches including coronary artery calcifications are noted. No evidence of any aneurysm. PET/PET CT fusion skull to thigh IMPRESSION: 1. Abnormal study. The index pleural-based spiculated solid mass measuring approximately 1.6 x 1.6 cm at the lingular segment of the left upper lobe of the lung anterolaterally shows increased FDG avidity with maximum SUV value of 8.1, highly suggestive of primary lung malignancy. No evidence of any metabolically active mediastinal and/or hilar lymphadenopathy or pleural or additional lung parenchymal disease. 2. No evidence of any extrathoracic metastatic disease within the visualized part of the body. 3. Incidental note is made of mild increased radiotracer activity near the midline at the posterior aspect of the glottis/supraglottic region within the neck without any underlying CT detectable discrete mass, may represent physiologic changes. Direct visualization however may be considered if clinically appropriate for further full detail evaluation. 4. Multiple healing and healed left hemithoracic rib fractures, similar to prior CT of the chest dated 01/23/2022. 5. Diffuse atherosclerotic disease of the aorta and is branches including coronary artery calcifications.
== END 2022-02-15 11:09 | disposition home or self-care (01) ==
LOC: HO.PET 11:08
PROVIDERS: PCP Internal Medicine; Visit Provider Surgery
DX: Z13.89 Encounter for screening for other disorder (principal)

== ENCOUNTER → 2022-02-24 09:02 | Day surgery (SDC) | payer MEDICARE, OTHER, SELFPAY ==
[2022-02-24 08:01] VITALS: BMI 29.2
[2022-02-24 09:05] VITALS: BP 146/87; PULSE 71; RESP 18; TEMP 36.4; O2SAT 95
[2022-02-24 09:16] LABS: Glucose, Whole Blood 79 mg/dL (60-115)
[2022-02-24 09:43] LABS: MANUAL DIFF FLAG NO
[2022-02-24 09:47] LABS: Basophils Absolute Auto 0.1 X10*3/uL (0.0-0.2); Basophils Percent Auto 0.8 % (0-2); Eosinophils Absolute Auto 0.3 X10*3/uL (0.0-0.4); Eosinophils Percent Auto 2.9 % (0-4); Hematocrit 40.6 % (42.0-52.0); Hemoglobin 13.6 g/dl (14.0-18.0); Imm Gran Abs Auto 0.03 X10*3/uL (0.00-0.03); Imm Gran Pct Auto 0.3 % (0.0-0.4); Lymphocytes Absolute Auto 1.5 X10*3/uL (1.2-4.9); Lymphocytes Percent Auto 15.2 % (20-40); Mean Corpuscular HGB Conc 33.5 g/dl (31.0-36.0); Mean Corpuscular Hemoglobin 31.6 pg (27.0-33.0); Mean Corpuscular Volume 94.4 fL (80.0-98.0); Mean Platelet Volume 9.4 fL (9.4-12.4); Monocytes Absolute Auto 0.7 X10*3/uL (0.1-1.2); Monocytes Percent Auto 7.2 % (2-11); Neutrophils Absolute Auto 7.2 x10*3/uL (2.0-8.3); Neutrophils Percent Auto 73.6 % (45-73); Platelet Count 239 X10*3/uL (160-400); Red Cell Distribution Width 13.4 % (11.0-16.0); White Blood Count 9.8 X10*3/uL (4.8-10.8)
[2022-02-24 09:55] LABS: Prothrombin Time 11.7 SEC (10.0-13.1)
[2022-02-24 09:58] LABS: Partial Thromboplastin Time 28.3 SEC (26.0-36.4)
--- NOTE | 2022-02-24 12:11 | PC.NURSE ---
pt combative with interventional radiology tech security and bhumi in the hallway with sita daughter called case cancelled pt escorted to daughters car. pt will be rescheduled
== END ==
PROVIDERS: Radiology Diagnostic Radiology; PCP Internal Medicine; Visit Provider Surgery
DX: R91.1 Solitary pulmonary nodule (principal); Z53.8 Procedure and treatment not carried out for other reasons; E11.9 Type 2 diabetes mellitus without complications
CPT/HCPCS: 36415; 82947; 85025; 85610; 85730; J2250; J3010

== ENCOUNTER 2022-03-14 09:11 | Day surgery (SDC) | payer MEDICARE, OTHER, SELFPAY ==
[2022-03-14] VITALS (9 sets, daily range): BP systolic 105–135; BP diastolic 51–84; PULSE 55–63; RESP 16; TEMP 36.6; O2SAT 95–99; BMI 27.4
--- NOTE | ~2022-03-14 | XR_ITS ---
EXAMINATION: XR CHEST, 2 VIEWS CLINICAL INFORMATION: Second radiograph status post lung biopsy today at 11:15 COMPARISON: Chest radiograph today at 12:50 PM, status post lung biopsy TECHNIQUE: Frontal view of the chest was obtained during inspiration as well as expiration at 2:32 PM. FINDINGS: No pneumothorax is detected. There is been no interval change when compared to the radiographs performed earlier today. Left-sided rib deformities and absent second and third posterior ribs secondary to prior surgery. XR/XR chest 1V IMPRESSION: No pneumothorax seen at just over 3 hours after the patient's left-sided biopsy.
--- NOTE | ~2022-03-14 | XR_ITS ---
EXAMINATION: XR CHEST CLINICAL INFORMATION: Status post left upper lobe lung biopsy. Small pneumothorax on post biopsy CT. Follow-up chest x-ray. COMPARISON: None TECHNIQUE: 2 views of the chest were obtained. FINDINGS: Inspiration and expiration views of chest reveal no visible pneumothorax on this exam. Mild atelectatic changes or scarring seen in the lingula. The heart size is enlarged. Vascularity is normal. There are surgical misbah in the mediastinum. There is deformity involving left upper ribs. No gross bony abnormality seen. XR/XR chest 2V IMPRESSION: No visible pneumothorax. Soft tissue density left midlung is stable concordant with a CT chest finding. There is deformity in the left posterior ribs from previous intervention.
--- NOTE | ~2022-03-14 | CT_ITS ---
PROCEDURE: CT GUIDED ASPIRATION, FINE NEEDLE, WITH IMAGE GUIDANCE CLINICAL INFORMATION: Left upper lobe pulmonary nodule. COMPARISON: None TECHNIQUE: Following explaining CT fluoroscopy-guided left upper lobe nodule biopsy procedure, benefits and risk, a written consent was obtained from patient's daughter. Patient was placed supine on CT table and preliminary CT imaging was obtained through the upper lungs. Lead markers were placed along the left anterior chest wall and an optimal marker was selected on the skin and marked. The marked site was cleaned and draped with 2% chlorhexidine solution. 1% lidocaine was injected at the puncture site. Through a small skin incision a 20-gauge guide needle was advanced under CT fluoroscopy guidance towards the left anterior chest wall parietal pleural edge. Coaxially a 20-gauge biopsy gun was advanced and a 4 pass core biopsy was performed through the left upper lobe nodule. Postprocedure guide needle was withdrawn and repeat CT imaging was performed. Sterile Band-Aid applied postprocedure. A small left apical pneumothorax was noted. Sedation was provided by anesthesia department. This CT examination was performed using dose optimization techniques as appropriate, variously including the following: *Automated exposure control *Adjustment of mA and/or kV according to patient size (this includes techniques or standardized protocols for targeted exams where dose is matched to indication/reason for exam; i.e. extremities or head) *Use of iterative reconstruction technique DLP: 310 mGy-cm FINDINGS: On preliminary CT imaging there is loss of left lung volume with deformity of left upper ribs from previous intervention. There is a left upper lobe anterior segment 2 cm nodule, which was biopsied. There are coronary artery calcifications with ipsilateral mediastinal shift. Postprocedure small pneumothorax was seen. Patient was then followed with series of chest x-rays. CT/CT guided FNA IMPRESSION: Left upper lobe 2 cm nodule, which was core biopsied with coaxial technique. Small pneumothorax was seen and follow-up by chest x-ray. No intervention was needed. Preliminary results revealed atypical cells.
[2022-03-14 09:46] LABS: Glucose, Whole Blood 90 mg/dL (60-115)
[2022-03-14 09:46] LABS: MANUAL DIFF FLAG NO
[2022-03-14 09:50] LABS: Basophils Absolute Auto 0.1 X10*3/uL (0.0-0.2); Eosinophils Absolute Auto 0.2 X10*3/uL (0.0-0.4); Eosinophils Percent Auto 2.5 % (0-4); Hematocrit 43.9 % (42.0-52.0); Hemoglobin 14.7 g/dl (14.0-18.0); Imm Gran Abs Auto 0.04 X10*3/uL (0.00-0.03); Imm Gran Pct Auto 0.5 % (0.0-0.4); Lymphocytes Absolute Auto 1.4 X10*3/uL (1.2-4.9); Lymphocytes Percent Auto 15.5 % (20-40); Mean Corpuscular HGB Conc 33.5 g/dl (31.0-36.0); Mean Corpuscular Hemoglobin 31.5 pg (27.0-33.0); Mean Corpuscular Volume 94.2 fL (80.0-98.0); Mean Platelet Volume 9.5 fL (9.4-12.4); Monocytes Absolute Auto 0.6 X10*3/uL (0.1-1.2); Monocytes Percent Auto 6.7 % (2-11); Neutrophils Absolute Auto 6.5 x10*3/uL (2.0-8.3); Neutrophils Percent Auto 73.8 % (45-73); Platelet Count 269 X10*3/uL (160-400); Red Blood Count 4.66 X10*6/uL (4.60-5.80); Red Cell Distribution Width 13.2 % (11.0-16.0); White Blood Count 8.8 X10*3/uL (4.8-10.8)
[2022-03-14 10:00] LABS: Prothrombin Time 11.2 SEC (10.0-13.1)
[2022-03-14 10:02] LABS: Partial Thromboplastin Time 30.1 SEC (26.0-36.4)
[2022-03-14] MEDS: Acetaminophen 325 MG TABLET 650 MG PO (13:38)
== END 2022-03-14 15:28 | disposition home or self-care (01) ==
PROVIDERS: Radiology Diagnostic Radiology; PCP Internal Medicine; Visit Provider Surgery
DX: C34.12 Malignant neoplasm of upper lobe, left bronchus or lung (principal); E11.9 Type 2 diabetes mellitus without complications; Z79.84 Long term (current) use of oral hypoglycemic drugs; F03.90 Unspecified dementia, unspecified severity, without behavioral disturbance, psychotic disturbance, mood disturbance, and anxiety; Z79.82 Long term (current) use of aspirin; Z79.899 Other long term (current) drug therapy; Z91.81 History of falling; Z87.81 Personal history of (healed) traumatic fracture; Z87.891 Personal history of nicotine dependence
CPT/HCPCS: 10009; 32408; 36415; 71045; 71046; 81210; 81235; 81275; 81276; 82947; 85025; 85610; 85730; 88305; 88333; 88341; 88342; 88360; 88374; J2250; J3010

== ENCOUNTER → 2022-03-18 08:32 | Outpatient (BNVA) | payer MEDICARE, OTHER, SELFPAY | PROVIDERS: PCP Internal Medicine; Visit Provider Surgery | DX: R91.1 Solitary pulmonary nodule (principal); Z79.899 Other long term (current) drug therapy | CPT/HCPCS: 99212 ==

== ENCOUNTER 2022-06-06 18:25 | Emergency (ER) | payer MEDICARE, OTHER, SELFPAY ==
--- NOTE | ~2022-06-06 | XR_ITS ---
EXAMINATION: XR LUMBOSACRAL SPINE CLINICAL INFORMATION: Status post fall COMPARISON: None TECHNIQUE: Three views of the lumbosacral spine. FINDINGS: There is a scoliosis convex to the right. Degenerative changes are noted in the lumbar spine. No acute fractures are seen. No bony destructive lesions are detected. XR/XR lumbar spine 2-3V IMPRESSION: Scoliosis and degenerative changes but no acute fracture is seen.
--- NOTE | ~2022-06-06 | CT_ITS ---
EXAMINATION: CT CHEST WITHOUT CONTRAST CLINICAL INFORMATION: s/p fall c rib pain . COMPARISON: Prior studies including the CT guided biopsy as well as the 02/15/2022 PET/CT scan. TECHNIQUE: Multidetector volumetric imaging was performed from the thoracic inlet through the lung bases without contrast. Sagittal and coronal reformatted images were obtained on the technologist workstation. Soft tissue and lung algorithms evaluated. Thick slab MIP images were performed to increase nodule conspicuity. This CT examination was performed using dose optimization techniques as appropriate, variously including the following: *Automated exposure control *Adjustment of mA and/or kV according to patient size (this includes techniques or standardized protocols for targeted exams where dose is matched to indication/reason for exam; i.e. extremities or head) *Use of iterative reconstruction technique DLP: 355 mGy-cm. FINDINGS: LUNG: Underlying centrilobular and carmona acinar emphysema. Mild bronchiectasis bilaterally. Spiculated mass in the anterior aspect of the lingula again noted. On the axial images this measures approximately 1.9 x 1.8 cm in size. When measured in similar orientation on the 03/14/2022 study this had measured 1.8 x 1.7 cm in size likely not significantly changed for the different techniques. Scattered linear regions of scarring or atelectasis are seen with a few probable scattered subpleural lymph nodes bilaterally MEDIASTINUM: Surgical clips likely from prior lymph node dissection. I do not appreciate any bulky mediastinal adenopathy at this time CORONARY ARTERY CALCIFICATION: Present PERICARDIUM/PLEURA: No significant effusion. No pleural mass or thickening. THYROID/VISUALIZED LOWER NECK: Unremarkable. CHEST WALL/AXILLA: Previous resection of the posterior left second third ribs as well as multiple bilateral rib fractures of varying degrees of healing. I do not appreciate any definitive acute fracture or dislocation VISUALIZED UPPER ABDOMEN: Tiny cortical cysts on the left kidney partially visualized CT/CT chest wo IV con IMPRESSION: Chronic appearing and postoperative changes as described. Spiculated mass in the anterior aspect of the lingula is again noted. 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 I do not appreciate any acute superimposed airspace disease on these extensive chronic changes.
--- NOTE | ~2022-06-06 | CT_ITS ---
EXAMINATION: CT HEAD WITHOUT CONTRAST CT CERVICAL SPINE WITHOUT CONTRAST CLINICAL INFORMATION: Fall. COMPARISON: CT head 12/03/2016. MRI brain 06/16/2021 TECHNIQUE: Imaging was performed from the skull base to vertex without intravenous administration of contrast. In addition, helical noncontrast CT imaging was acquired through the cervical spine and source images were reviewed along with axial reconstructions and sagittal and coronal MPRs. [This CT examination was performed using dose optimization techniques as appropriate, variously including the following: *Automated exposure control *Adjustment of mA and/or kV according to patient size (this includes techniques or standardized protocols for targeted exams where dose is matched to indication/reason for exam; i.e. extremities or head) *Use of iterative reconstruction technique] DLP: 1414 mGy-cm FINDINGS: HEAD: No intracranial mass, hemorrhage, or midline shift is visualized. There is generalized global volume loss. There is moderate prominence of the ventricles and the sulci . There is mild hypodensity of the periventricular white matter due to chronic small vessel ischemic disease. There are vascular calcifications of the internal carotid arteries bilaterally. No extra-axial collections are identified. The paranasal sinuses and mastoid air cells are well aerated. CERVICAL SPINE: There is no evidence of acute cervical spine fracture. Vertebral bodies remain normal in height. Cervical vertebrae have normal alignment. There is multilevel degenerative spondylosis of the cervical spine with disc height narrowing and endplate spurs and facet joint arthrosis No pre- or paravertebral soft tissue abnormality is identified. Marked emphysematous change of lung apices. CT/CT cervical spine wo IV con IMPRESSION: 1. No acute intracranial pathology. 2. No CT evidence of acute cervical spine fracture or traumatic subluxation
[2022-06-06 18:40] VITALS: BP 108/43; PULSE 87; RESP 16; TEMP 36.7; O2SAT 96; BMI 24.7
--- OUTSIDE RECORDS SUMMARY | 2022-06-07 00:27 | XMS_ITS ---
:1935 Author Care Team Providers Name Role Phone [facility] (NONO UNIT) OTHER [phone] ILEANA PITTMAN MD Primary Care Provider [phone] Allergies Code Code System Name Reaction Severity Status Onset 5487 RxNorm Hydrochlorothiazide ? ? Active ? Medications Notes: Meds reviewed, see MAR for accu rate list. Problems Name Status Onset Date Source ? Type 2 Diabetes Mellitus Active 08/07/2021 ? Hyperlipidemia Active 08/07/2021 ? Gout Active 08/07/2021 ? Mild Cognitive Disorder Active 08/07/2021 ? Essential Hypertension Active 08/07/2021 ? Closed Fracture of Ulna Active 08/07/2021 ? 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 Closed Fracture of Multiple Left Ribs Active 08/07/2021 ? Procedures None recorded. Results Lab Results None recorded. Past Encounters 08/16/2021 Recurrent Falls; Closed Fracture of Ulna ; Closed Fracture of Multiple Left Ribs; Hyponatremia; Hyperkalemia Josefa Finley: [address] [place] [phone], Ph. 08/10/2021 Recurrent Falls; Closed Fracture of Ulna ; Closed Fracture of Multiple Left Ribs Josefa Finley: [address] [place] [phone], Ph. 08/06/2021 Recurrent Falls; Closed Fracture of Ulna ; Closed Fracture of Multiple Left Ribs; Essential Hypertension; Type 2 Diabetes Mellitus; Mild Cognitive Disorder; Hyperlipidemia; Gout Kenna Rojas MD: [address] [place] [phone], Ph. Social History Tobacco Smoking Status Former Smoker Notes: quit in 1978 Vaccine List Vaccine Type COVID-19, mRNA, LNP-S, PF, 30 mcg/0.3 mL dose (Knodium) 09/06/2020 09/25/2020 04/24/2021 influenza, high-dose, quadrivalent 03/27/2020 influenza, injectable, quadrivalent 04/23/2019 pneumococcal conjugate PCV 13 2015 pneumococcal polysaccharide PPV23 08/31/2000 12/30/2007 Td(adult) unspecified formulation 12/29/2004 Plan of Care Reminders Provider Appointments None recorded. ? ? Lab None recorded. ? ? Referral None recorded. ? ? Procedures None recorded. ? ? Surgeries None recorded. ? ? Imaging None recorded. ? ? Vitals 08/16/2021 01:28PM Discharge Summary Height Blood Pressure 5 ft 5 in 132/77 mm[Hg] 08/10/2021 01:36PM Telemed Acute Rounding Height Blood Pressure 5 ft 5 in 129/57 mm[Hg] 08/06/2021 05:01PM Admitting H&P Height Weight BMI Blood Pressure 5 ft 5 in 181.8 lbs 30.3 kg/m2 120/69 mm[Hg]
--- OUTSIDE RECORDS SUMMARY | 2022-06-07 00:27 | XMS_ITS | Continuity of Care Document ---
:1935 Author Organization [facility] Address [address] [place] [id number] Care Team Providers Name Role Phone Quique Zambrano MD Primary Care Phys[id number] Date(s): 07/29/21 - 08/05/[address] [address]- Encounter Diagnosis Dizziness (Final) - 07/29/21 Vertebral artery stenosis (Final) - 07/29/21 Multiple falls (Final) - 07/29/21 Discharge Disposition: A-D/C Home Attending Physician: Marcello Peña DO Admitting Physician: Lucrecia MADDEN, Connor Referring Physician: Not on Staff, Referring MD Allergies, Adverse Reactions, Alerts No Known Medication Allergies Immunizations Given and Recorded Vaccine Date Status Refusal Reason SARS-CoV-2 (COVID-19) mRNA BNT-162b2 vac 04/24/21 Recorde d SARS-CoV-2 (COVID-19) mRNA BNT-162b2 vac 09/25/20 Recorde d SARS-CoV-2 (COVID-19) mRNA BNT-162b2 vac 09/06/20 Recorde d Medications Acetaminophen Tablet 650 mg, Tablet, By Mouth, Every 4 hours, PRN for Pain , Mild, Temperature Greater than 100.5, Routine, 07/30/21 4:43:00 EST Start Date: 07/30/21 Stop Date: 08/05/21 Status: Discontinuedallopurinol 100 mg oral tablet 100 mg, 1, tablet, By Mouth, Daily, Refills 0, Maintenance, 07/30/21 2:17:00 EST, Partial fill upon patient request if the prescription is for a schedule II opioid drug. Start Date: 07/30/21 Status: OrderedamLODIPine 2.5 mg oral tablet 1 tablet = 2.5 mg, By Mouth, Daily, 0 Refills, Maintenance, 07/30/21 2:17:00 EST, Partial fill upon patient request if the prescription is for a schedule II opioid drug. Start Date: 07/30/21 Status: Orderedaspirin 81 mg oral delayed release tablet 81 mg, 1, tablet, By Mouth, Daily, # 30 tablet, Refills 0, Maintenance, 07/30/21 4:09:00 EST, Partial fill upon patient request if the prescription is for a schedule II opioid drug. Start Date: 07/30/21 Status: Orderedlisinopril 20 mg oral tablet 20 mg, 1, tablet, By Mouth, Daily, Refills 0, Maintenance, 07/30/21 2:17:00 EST, Partial fill upon patient request if the prescription is for a schedule II opioid drug. Start Date: 07/30/21 Status: OrderedMetFORMIN (Eqv-Glucophage XR) 500 mg oral tablet, extended release 1 tablet = 500 mg, By Mouth, Daily, 0 Refills, Maintenance, 07/30/21 2:17:00 EST, Partial fill upon patient request if the prescription is for a schedule II opioid drug. Start Date: 07/30/21 Status: Orderedpravastatin 40 mg oral tablet 1 tablet = 40 mg, By Mouth, Daily, 0 Refills, Maintenance, 07/30/21 2:17:00 EST, Partial fill upon patient request if the prescription is for a schedule II opioid drug. Start Date: 07/30/21 Status: Orderedsertraline 25 mg oral tablet 1 tablet = 25 mg, By Mouth, Daily, 0 Refills, Maintenance, 07/30/21 2:17:00 EST, Partial fill upon patient request if the prescription is for a schedule II opioid drug. Start Date: 07/30/21 Status: Ordered Problem List Condition Effective Dates Status Health Status Informant Obese class I(Confirmed) Active Results Radiology Reports Exam Date Time Procedure Performing Provider Status 07/29/21 4:58 PM Chest 2 Views Frontal and Lat Sheryl Dos Santos [facility] (Verified) Notes:(Chest 2 Views Frontal and Lat) Reason For Exam: Fever;CoughRESULT: Chest 2 Views Frontal and Lat Chest 2 Views Frontal and Lat INDICATION: Fall on July 24, fracture ribs and left arm COMPARISON: None. FINDINGS: Suboptimal examination due to patient positioning. LINES AND TUBES: None. LUNGS AND PLEURA: Right lung apex is partially obscured by overlying neck soft tissues; minimal left basilar atelectasis, but otherwise, clear lungs. No evidence of pleural effusion. No pneumothorax. HEART, MEDIASTINUM AND JASKARAN: Heart is normal in size. Aorta is calcified. Surgical clips project over the mid mediastinum. BONES AND SOFT TISSUES: Moderate S-shaped thoracic scoliosis and mild thoracic kyphosis. Old-appearing left posterolateral third rib fracture. IMPRESSION: No acute abnormality. No evidence of acute rib fractures, although ribs are suboptimally visualized.If there is high concern for rib fractures, consider dedicated rib radiographs. I have personally reviewed the images and I agree with this report. WSN: [id number] Ordering Physician: Mehran Pompa Dictated By: Dar Au DO Dictated Date/Time: 07/29/21 5:11 pm Reviewed By: Dick Clemons MD Signed By: Dick Clemons MD Signed Date/Time: 07/29/21 5:16 pm Transcribed By: NANCY Transcribed Date/Time: 07/29/21 5:09 pm Vital Signs Most recent to oldest 1 2 3 [Reference Range]: Height 165 cm 165 cm 165 cm (08/05/21 5:18 AM) (08/05/21 1:25 AM) (08/04/21 8:57 P M) Weight 76.9 kg 82.5 kg 82.5 kg (08/02/21 5:18 AM) (07/30/21 2:10 AM) (07/30/21 2: 04 AM) Oxygen Saturation [94-100 %] 98 % 97 % 98 % (08/05/21 10:22 AM) (08/05/21 8:10 AM) (08/05/21 5:18 AM) Pulse Rate [55-90 bpm] 81 bpm 62 bpm 60 bpm (08/05/21 10:22 AM) (08/05/21 8:10 AM) (08/05/21 5:18 AM) Body Mass Index [18.5-24.99] 30.3 *>HHI* (07/30/21 2:04 AM) Blood Pressure [90-138/55-84 120/69 mm Hg 113/68 mm Hg 133 /64 mm Hg mm Hg] (08/05/21 10:22 AM) (08/05/21 8:10 AM) (08/05/21 5:18 AM) Respiratory Rate [16-30 18 br/min 16 br/min 18 br/mi n br/min] (08/05/21 10:22 AM) (08/05/21 9:15 AM) (08/05/21 8:10 AM) Temperature [96.8-100.4 97.7 DegF 97.2 DegF 97.3 Deg F DegF] (08/05/21 10:22 AM) (08/05/21 8:10 AM) (08/05/21 5:18 AM) Liters per Minute 0 L/min 0 L/min 0 L/min (08/04/21 3:33 PM) (08/03/21 3:24 PM) (07/30/21 2:51 PM) Mode of Delivery (Oxygen) Room air Room air Room a ir (08/05/21 10:22 AM) (08/05/21 8:10 AM) (08/05/21 5:18 AM) Blood pressure sites Arm, right Arm, right Arm, left (08/05/21 10:22 AM) (08/05/21 8:10 AM) (08/05/21 5:18 AM) Temperature Route Oral Temporal Temporal (08/05/21 10:22 AM) (08/05/21 8:10 AM) (08/05/21 5:18 AM) Dry Weight 82.5 kg (07/30/21 2:04 AM) Weight Obtained Via Bed scale Bed scale Bed scale (08/02/21 5:18 AM) (07/30/21 2:10 AM) (07/30/21 2: 04 AM) Social History Social History Type Response Smoking Status Smoker, current status unkno wn; Other: quit at age 36; entered on: 07/30/21 Sex
== END 2022-06-07 01:43 | disposition left against medical advice (07) ==
PROVIDERS: Emergency Provider Emergency Medicine; PCP Internal Medicine
DX: M54.9 Dorsalgia, unspecified (principal); Z91.81 History of falling
CPT/HCPCS: 70450; 71250; 72100; 72125; 99281

== ENCOUNTER 2022-06-07 10:45 | Emergency (ER) | payer MEDICARE, OTHER, SELFPAY ==
--- NOTE | ~2022-06-07 | XR_ITS ---
EXAMINATION: XR LUMBOSACRAL SPINE CLINICAL INFORMATION: Fall. Back pain. COMPARISON: None TECHNIQUE: Three views of the lumbosacral spine. FINDINGS: Decreased bone mineral density limits sensitivity for subtle fracture. Moderate multilevel disc and facet degenerative changes are present throughout the lumbar spine, worst at L4-L5 and L5-S1. Lumbar dextrocurvature is present. No spondylolysis or spondylolisthesis is evident. Vertebral body heights appear maintained. The paraspinal soft tissues appear unremarkable. The aorta and iliac arteries are calcified. XR/XR lumbar spine 2-3V IMPRESSION: Degenerative changes.
[2022-06-07 11:30] VITALS: BP 149/74; PULSE 91; RESP 16; TEMP 36.3; O2SAT 96; BMI 24.7
--- NOTE | 2022-06-07 12:02 | PC.NURSE ---
pt's daughter ([phone]) called [facility] [place] and states that her father has alzhiemer's and can at times be belligerent.
== END 2022-06-07 22:46 | disposition left against medical advice (07) ==
PROVIDERS: Emergency Provider Emergency Medicine; PCP Internal Medicine
DX: M54.50 Low back pain, unspecified (principal); Z91.81 History of falling; E11.9 Type 2 diabetes mellitus without complications; I10 Essential (primary) hypertension; E78.5 Hyperlipidemia, unspecified; G30.9 Alzheimer's disease, unspecified; F02.80 Dementia in other diseases classified elsewhere, unspecified severity, without behavioral disturbance, psychotic disturbance, mood disturbance, and anxiety
CPT/HCPCS: 70450; 71250; 72100; 72125; 99281; 99283; 99284

== ENCOUNTER → 2022-07-07 13:11 | Outpatient (BNVA) | payer MEDICARE, OTHER, SELFPAY | PROVIDERS: PCP Internal Medicine; Visit Provider Nurse Practitioner Family | DX: G30.9 Alzheimer's disease, unspecified (principal); F02.80 Dementia in other diseases classified elsewhere, unspecified severity, without behavioral disturbance, psychotic disturbance, mood disturbance, and anxiety | CPT/HCPCS: 99202 ==

== ENCOUNTER 2022-07-18 19:31 | Inpatient (IN) | payer MEDICARE, OTHER, SELFPAY ==
--- NOTE | ~2022-07-18 | XR_ITS ---
EXAMINATION: XR HIP, LEFT CLINICAL INFORMATION: Fall with hip pain COMPARISON: None TECHNIQUE: Single view pelvis with 2 additional views of the left hip. FINDINGS: There is an intertrochanteric fracture through the left femur with minimal displacement and angulation. No additional pelvic fractures are seen. XR/XR hip LT w [id number] IMPRESSION: Intertrochanteric left hip fracture.
--- NOTE | ~2022-07-18 | CT_ITS ---
EXAMINATION: CT HEAD WITHOUT CONTRAST CT CERVICAL SPINE WITHOUT CONTRAST CLINICAL INFORMATION: Trauma. COMPARISON: CT head and cervical spine 06/16/2022. TECHNIQUE: Sustainability Engineer images were obtained. CT imaging of the head and cervical spine was performed without contrast. Data was reformatted into multiplanar images at the acquisition workstation. This CT examination was performed using dose optimization techniques as appropriate, including one or more of the following: Automated exposure control, iterative reconstruction, and adjustment of technique factors (mA and/or kVp) according to patient size (this includes techniques or standardized protocols for targeted exams where dose is matched to indication/reason for exam). Fleischner Society criteria for the followup of incidental pulmonary nodules was implemented if appropriate. DLP: 1563 mGy-cm. FINDINGS: Head: There is no acute intracranial hemorrhage or abnormal extra-axial collection. No intracranial mass effect or midline shift. Lateral and third ventricles are proportionate to the subarachnoid spaces. No hydrocephalus. Scattered nonspecific foci of hypoattenuation are visualized within the periventricular white matter. Saavedra-white matter differentiation is otherwise preserved and there is no evidence of acute territorial infarct. The calvarium and skull base are intact. No mastoid or middle ear effusion. No active paranasal sinus disease. Cervical spine: Alignment is normal. Vertebral heights are preserved. No acute fracture. No abnormal prevertebral soft tissue swelling. Grossly no spinal canal compromise. Multiple rib resections are partially visualized within the left hemithorax. There are bullous changes at the apices of both lungs. Atheromatous calcification involves both carotid bifurcations. Grossly no pathologically enlarged cervical lymph nodes. CT/CT cervical spine wo IV con IMPRESSION: No acute finding. Specifically no there is no acute intracranial hemorrhage and no acute cervical spine fracture or posttraumatic spinal subluxation.
--- NOTE | ~2022-07-18 | FL_ITS ---
EXAMINATION: XR FLUOROSCOPY WITH IMAGES CLINICAL INFORMATION: Left femoral intertrochanteric fracture with gamma nail. COMPARISON: CT pelvis 07/18/2022 TECHNIQUE: Fluoroscopy Supervised By: Dr. Rosa none. Fluoroscopy Time: 0.5 minutes. Cumulative Dose: 8.26 mGy. DAP: 0.130 Gycm2. Images: 4. FINDINGS: The left intertrochanteric fracture of the hip is stabilized with intramedullary femoral dinah and a solitary screw through the femoral neck stabilizing the fracture in alignment. No dislocation seen. FL/FL guidance in OR IMPRESSION: Stabilized left intertrochanteric fracture with intramedullary femoral dinah and a solitary screw.
--- NOTE | ~2022-07-18 | XR_ITS ---
EXAMINATION: XR CHEST CLINICAL INFORMATION: Preop COMPARISON: Chest CT 06/06/2022, chest radiograph 03/14/2022 TECHNIQUE: Frontal view of the chest was obtained. FINDINGS: Heart size upper limits of normal. Mediastinal surgical clips are seen. Scoliosis convex to left. COPD much better seen on prior CT scan. Spiculated pleural-based mass is seen in the left lung but better appreciated on the recent CT. There is scarring present at the lung bases. No pleural effusions. No bony destructive lesions. XR/XR chest 1V IMPRESSION: No acute intrathoracic disease. COPD. Spiculated left lung mass as described above.
--- NOTE | ~2022-07-18 | XR_ITS ---
EXAMINATION: XR CHEST CLINICAL INFORMATION: Hypoxia COMPARISON: Previous chest x-ray most recent 07/18/[address] May 2022 TECHNIQUE: Frontal view of the chest was obtained. FINDINGS: The cardiac and mediastinal contours are stable. There are chronic pleural parenchymal changes at the left lung base. This appears similar to previous exams. The lungs are otherwise clear. There is no right pleural effusion. There is no pneumothorax. There were multiple bilateral rib fractures of varying ages. There may be old fracture of the right distal clavicle. There are degenerative changes and curvature of the lower thoracic spine to the right. XR/XR chest 1V IMPRESSION: Chronic pleural and parenchymal changes at the left lung base similar to previous exams
--- NOTE | ~2022-07-18 | CT_ITS ---
EXAMINATION: CT HEAD WITHOUT CONTRAST CT CERVICAL SPINE WITHOUT CONTRAST CLINICAL INFORMATION: Trauma. COMPARISON: CT head and cervical spine 06/16/2022. TECHNIQUE: Filer And Sander images were obtained. CT imaging of the head and cervical spine was performed without contrast. Data was reformatted into multiplanar images at the acquisition workstation. This CT examination was performed using dose optimization techniques as appropriate, including one or more of the following: Automated exposure control, iterative reconstruction, and adjustment of technique factors (mA and/or kVp) according to patient size (this includes techniques or standardized protocols for targeted exams where dose is matched to indication/reason for exam). Fleischner Society criteria for the followup of incidental pulmonary nodules was implemented if appropriate. DLP: 1563 mGy-cm. FINDINGS: Head: There is no acute intracranial hemorrhage or abnormal extra-axial collection. No intracranial mass effect or midline shift. Lateral and third ventricles are proportionate to the subarachnoid spaces. No hydrocephalus. Scattered nonspecific foci of hypoattenuation are visualized within the periventricular white matter. Saavedra-white matter differentiation is otherwise preserved and there is no evidence of acute territorial infarct. The calvarium and skull base are intact. No mastoid or middle ear effusion. No active paranasal sinus disease. Cervical spine: Alignment is normal. Vertebral heights are preserved. No acute fracture. No abnormal prevertebral soft tissue swelling. Grossly no spinal canal compromise. Multiple rib resections are partially visualized within the left hemithorax. There are bullous changes at the apices of both lungs. Atheromatous calcification involves both carotid bifurcations. Grossly no pathologically enlarged cervical lymph nodes. CT/CT head/brain wo IV con IMPRESSION: No acute finding. Specifically no there is no acute intracranial hemorrhage and no acute cervical spine fracture or posttraumatic spinal subluxation.
--- NOTE | ~2022-07-18 | CT_ITS ---
EXAMINATION: CT PELVIS WITHOUT CONTRAST CLINICAL INFORMATION: Left femoral fracture COMPARISON: Hip radiographs earlier today TECHNIQUE: Helical scanning was performed with submillimeter collimation through the pelvis. Sagittal and coronal multiplanar 2-D reconstructions were obtained. This CT examination was performed using dose optimization techniques as appropriate, variously including the following: *Automated exposure control *Adjustment of mA and/or kV according to patient size (this includes techniques or standardized protocols for targeted exams where dose is matched to indication/reason for exam; i.e. extremities or head) *Use of iterative reconstruction technique DLP: 322 mGy-cm FINDINGS: There is an intertrochanteric fracture of the left femur. No significant angulation, distraction or displacement is seen. No other acute fractures are seen. There is a well-corticated chronic osseous abnormality in the anterior acetabulum, probably secondary to remote trauma. A subchondral cyst is noted in the left femoral head laterally. A small bone island is present in the left femoral head. Some minimal degenerative changes present in the superior hip joint on the right. Visualized bowel is unremarkable. Calcific atherosclerotic changes present in the aorta and iliofemoral vessels without aneurysm. There is mild BPH. Seminal vesicles appear normal. The bladder is unremarkable. No retroperitoneal lymphadenopathy is seen. No abdominal wall hernias are seen. CT/CT pelvis wo IV con IMPRESSION: Intertrochanteric fracture of the left femur.
[2022-07-18 19:48] VITALS: BP 142/68; RESP 16; O2SAT 96; BMI 54.4
--- NOTE | 2022-07-18 20:19 | ED.FALL ---
HPI - Fall General Chief Complaint: Fall Stated Complaint: Fall/Left hip pain Time Seen by Provider: 07/18/22 20:13 Source: patient and EMS Mode of arrival: EMS Limitations: no limitations History of Present Illness HPI Narrative: Patient is 7 years old not on any anticoagulant history of lung cancer status post chemotherapy was at home was moving a portable heater lost balance and fell landed on his left hip complaining of pain in the left hip patient received 50 mcg of fentanyl by EMS. Patient denies any head injury no neck pain no other injuries no loss of consciousness no chest pain or palpitations Related Data Home Medications Medication Instructions Recorded Confirmed allopurinol 100 mg tablet 1 tab PO DAILY 08/11/21 07/18/22 amlodipine 2.5 mg tablet 1 tab PO DAILY 08/11/21 07/18/22 aspirin 81 mg capsule 81 mg PO DAILY 08/11/21 07/18/22 lisinopril 20 mg tablet 1 tab PO DAILY 08/11/21 07/18/22 metformin 500 mg tablet,extended 1 tab PO TID 08/11/21 07/18/22 release 24 hr pravastatin 40 mg tablet 1 tab PO DAILY 08/11/21 07/18/22 sertraline 25 mg tablet 1 tab PO DAILY 08/11/21 07/18/22 cholecalciferol (vitamin D3) 25 25 mcg PO DAILY 07/07/22 07/18/22 mcg (1,000 unit) capsule mecobalamin (vitamin B12) 5,000 5,000 mcg PO DAILY 07/07/22 07/18/22 mcg chewable tablet Allergies Allergy/AdvReac Type Severity Reaction Status Date / Time No Known Allergies Allergy Verified 07/07/22 13:29 Review of Systems Review of Systems: Yes all other systems are reviewed and are negative [facility] Past Medical History Medical History Alzheimers disease Ataxia Diabetes Diabetes Gout Gout History of tumor HTN (hypertension) Hyperlipidemia Hypertension 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 Tumor cells, uncertain whether benign or malignant Venous insufficiency (chronic) (peripheral) Family History Family History Father Lung cancer Social History Social History Household Members: Spouse Housing: House Are you a primary foster care worker to a significant other at home: No Do you presently have visiting nurse or other home services: No Patient Tobacco Use Status: Former Tobacco user Tobacco use type: Cigarette Advance Directives: Yes Advance Directives on File: Yes Advance Directives Date on File: 03/14/22 service: Yes Current occupational status: retired Current occupation: rt handed Physical Exam Vital Signs: Vital Signs: Last Vital Signs Resp 16 07/18/22 19:48 BP 142/68 H 07/18/22 19:48 Pulse Ox 96 07/18/22 19:48 O2 Del Method 07/18/22 19:48 BMI result Body Mass Index 54.4 Appearance: Alert. Oriented X3. No acute distress. Hard of hearing Eyes: PERRLA, No Nystagmus ENT: Pharynx normal. Oral Mucosa moist Neck: Normal inspection. Neck supple. No midline tenderness CVS: Normal heart rate and rhythm. Pulses normal. Respiratory: No respiratory distress. Equal air entry bilateral, no wheezing/rales/rhonchi Abdomen: Soft and nontender. Bowel sounds are present, no mass palpable, no CVA tenderness Skin: Skin warm and dry. Normal skin color. Normal skin turgor. Extremities: No lower extremity edema. No calf tenderness tenderness at left greater trochanteric area slightly shortened, neurovascular intact Neuro: Oriented X 3. No motor deficit. No sensory deficit.No cerebellar signs , cranial nerves II-XII intact Medical Decision Making Medical Decision Making [facility] Narrative: Patient status post mechanical fall with left hip pain x-ray showed intertrochanteric fracture. CT head C-spine negative, Case discussed Dr. Rosa orthopedics will admit the patient plan to do surgery tomorrow after medically clear Lab Data [facility] Lab Attestation statement: I reviewed the patient's lab results. Result Diagrams: 07/18/22 21:11 07/18/22 21:11 Labs: Lab Results 07/18/22 07/18/22 07/18/22 Range/Units 21:11 21:11 21:11 WBC 12.2 H (4.8-10.8) X10*3/uL RBC 3.87 L (4.60-5.80) X10*6/uL Hgb 12.5 L (14.0-18.0) g/dl Hct 36.8 L (42.0-52.0) % MCV 95.1 (80.0-98.0) fL MCH 32.3 (27.0-33.0) pg MCHC 34.0 (31.0-36.0) g/dl RDW 13.2 (11.0-16.0) % Plt Count 238 (160-400) X10*3/uL MPV 8.9 L (9.4-12.4) fL Immature Gran % (Auto) 0.2 (0.0-0.4) % Neut % (Auto) 77.8 H (45-73) % Lymph % (Auto) 11.7 L (20-40) % [place] % (Auto) 7.1 (2-11) % Eos % (Auto) 2.5 (0-4) % Baso % (Auto) 0.7 (0-2) % Lymph # (Auto) 1.4 (1.2-4.9) X10*3/uL [place] # (Auto) 0.9 (0.1-1.2) X10*3/uL Eos # (Auto) 0.3 (0.0-0.4) X10*3/uL Baso # (Auto) 0.1 (0.0-0.2) X10*3/uL Abs Immat Gran (auto) 0.03 (0.00-0.03) X10*3/uL Absolute Neuts (auto) 9.5 H (2.0-8.3) x10*3/uL Absolute Nucleated RBC 0.000 (0.0-0.012) X10*3/uL Nucleated RBC % (auto) 0.0 (0.0-0.2) /100WBC PT 12.2 (10.0-13.1) SEC INR 1.1 (0.9-1.1) Sodium 137 (135-145) mmol/L Potassium 4.1 D (3.3-5.1) mmol/L Chloride 104 (96-108) mmol/L Carbon Dioxide 25 (22-29) mmol/L Anion Gap 12 (12-20) BUN 23 H (9-16) mg/dL Creatinine 0.88 (0.5-1.4) mg/dL Estim Creat Clear Calc 84.7 Estimated GFR > 60 Random Glucose 89 (60-115) mg/dL Calcium 9.5 D (8.4-10.2) mg/dL Total Bilirubin 0.6 (0.0-1.0) mg/dL AST 13 (5-37) U/L ALT 9 (0-40) U/L Alkaline Phosphatase 64 (39-117) U/L Troponin I High Sens (<3.5-35.0) ng/L Total Protein 6.3 L (6.5-8.0) g/dL Albumin 3.8 (3.5-5.0) g/dL COVID-19 ([facility]) (Negative) COVID-19 Clin Com 07/18/22 07/18/22 Range/Units 21:11 21:11 WBC (4.8-10.8) X10*3/uL RBC (4.60-5.80) X10*6/uL Hgb (14.0-18.0) g/dl Hct (42.0-52.0) % MCV (80.0-98.0) fL MCH (27.0-33.0) pg MCHC (31.0-36.0) g/dl RDW (11.0-16.0) % Plt Count (160-400) X10*3/uL MPV (9.4-12.4) fL Immature Gran % (Auto) (0.0-0.4) % Neut % (Auto) (45-73) % Lymph % (Auto) (20-40) % [place] % (Auto) (2-11) % Eos % (Auto) (0-4) % Baso % (Auto) (0-2) % Lymph # (Auto) (1.2-4.9) X10*3/uL [place] # (Auto) (0.1-1.2) X10*3/uL Eos # (Auto) (0.0-0.4) X10*3/uL Baso # (Auto) (0.0-0.2) X10*3/uL Abs Immat Gran (auto) (0.00-0.03) X10*3/uL Absolute Neuts (auto) (2.0-8.3) x10*3/uL Absolute Nucleated RBC (0.0-0.012) X10*3/uL Nucleated RBC % (auto) (0.0-0.2) /100WBC PT (10.0-13.1) SEC INR (0.9-1.1) Sodium (135-145) mmol/L Potassium (3.3-5.1) mmol/L Chloride (96-108) mmol/L Carbon Dioxide (22-29) mmol/L Anion Gap (12-20) BUN (9-16) mg/dL Creatinine (0.5-1.4) mg/dL Estim Creat Clear Calc Estimated GFR Random Glucose (60-115) mg/dL Calcium (8.4-10.2) mg/dL Total Bilirubin (0.0-1.0) mg/dL AST (5-37) U/L ALT (0-40) U/L Alkaline Phosphatase (39-117) U/L Troponin I High Sens 3.7 (<3.5-35.0) ng/L Total Protein (6.5-8.0) g/dL Albumin (3.5-5.0) g/dL COVID-19 ([facility]) Negative (Negative) COVID-19 Clin Com See Note Independent Interpretation I performed an independent interpretation of an: EKG Interpretation: sinus rhythm heart rate 72 beats per minute first-degree AV block with frequent PVCs no acute ST-T no acute ischemia Discharge Plan Discharge Clinical Impression: Closed fracture of left hip Patient Disposition: Admitted As Inpatient
--- NOTE | 2022-07-18 20:26 | ECG_ITS ---
Test Reason : FALL Blood Pressure : / mmHG Vent. Rate : 072 BPM Atrial Rate : 072 BPM P-R Int : 284 ms QRS Dur : 074 ms QT Int : 396 ms P-R-T Axes : 000 038 011 degrees QTc Int : 433 ms Poor data quality Sinus rhythm with 1st degree A-V block with frequent Premature ventricular complexes Possible Inferior infarct (cited on or before 22-NOV-2012) Abnormal ECG When compared with ECG of 02-JAN-2021 15:36, DE interval has increased Referred By: Galileo Zamora Electronically Signed By:Mani Domínguez
[2022-07-18 21:18] LABS: Basophils Absolute Auto 0.1 X10*3/uL (0.0-0.2); Basophils Percent Auto 0.7 % (0-2); Eosinophils Absolute Auto 0.3 X10*3/uL (0.0-0.4); Eosinophils Percent Auto 2.5 % (0-4); Hematocrit 36.8 % (42.0-52.0); Hemoglobin 12.5 g/dl (14.0-18.0); Imm Gran Abs Auto 0.03 X10*3/uL (0.00-0.03); Imm Gran Pct Auto 0.2 % (0.0-0.4); Lymphocytes Absolute Auto 1.4 X10*3/uL (1.2-4.9); Lymphocytes Percent Auto 11.7 % (20-40); MANUAL DIFF FLAG NO; Mean Corpuscular Hemoglobin 32.3 pg (27.0-33.0); Mean Corpuscular Volume 95.1 fL (80.0-98.0); Mean Platelet Volume 8.9 fL (9.4-12.4); Monocytes Absolute Auto 0.9 X10*3/uL (0.1-1.2); Monocytes Percent Auto 7.1 % (2-11); Neutrophils Absolute Auto 9.5 x10*3/uL (2.0-8.3); Neutrophils Percent Auto 77.8 % (45-73); Platelet Count 238 X10*3/uL (160-400); Red Blood Count 3.87 X10*6/uL (4.60-5.80); Red Cell Distribution Width 13.2 % (11.0-16.0); White Blood Count 12.2 X10*3/uL (4.8-10.8)
[2022-07-18 21:24] LABS: INTERNATIONAL NORM RATIO 1.1 (0.9-1.1); Prothrombin Time 12.2 SEC (10.0-13.1)
[2022-07-18 21:32] LABS: COVID-19 Test Negative (Negative)
--- NOTE | 2022-07-18 21:32 | PHA.MEDREC ---
Pharmacy Consult ? Medication Reconciliation Pharmacy has completed the medication reconciliation.
[2022-07-18 21:36] LABS: Alanine Aminotransferase 9 U/L (0-40); Albumin Level 3.8 g/dL (3.5-5.0); Alkaline Phosphatase 64 U/L (39-117); Anion Gap 12 (12-20); Aspartate Amino Transferase 13 U/L (5-37); Bilirubin Total 0.6 mg/dL (0.0-1.0); Blood Urea Nitrogen 23 mg/dL (9-16); Calcium 9.5 mg/dL (8.4-10.2); Carbon Dioxide 25 mmol/L (22-29); Chloride 104 mmol/L (96-108); Creatinine Clr Calc Pharmacy 84.7; Estimated Glomerular Filt Rate > 60; Glucose Random 89 mg/dL (60-115); Potassium 4.1 mmol/L (3.3-5.1); Sodium 137 mmol/L (135-145); Total Protein 6.3 g/dL (6.5-8.0)
[2022-07-18 21:43] LABS: Troponin-I High Sensitivity 3.7 ng/L (<3.5-35.0)
--- NOTE | 2022-07-18 22:20 | PM.IMHP ---
History of Present Illness Date of Service: 07/18/22 Chief Complaint: fall, left hip pain 87M PMH HTN, alzheimers/vascular dementia, DM, HLD, gout, lung cancer, presented with mechanical fall. patient lives with , daughter nearby, uses cane to ambulate. on radiation for recently diagnosed local lung cancer. patient appeared to have mechanical fall at home, fell on left side, was in pain, unable to stand. denies LOC, chest pain, sob. in ED found to have left trochanteric fracture. 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 Tumor cells, uncertain whether benign or malignant Venous insufficiency (chronic) (peripheral) Family History Father Lung cancer Social History Household Members: Spouse Housing: House Are you a primary senior care manager to a significant other at home: No Do you presently have visiting nurse or other home services: No Patient Tobacco Use Status: Former Tobacco user Tobacco use type: Cigarette Advance Directives: Yes Advance Directives on File: Yes Advance Directives Date on File: 03/14/22 service: Yes Current occupational status: retired Current occupation: rt handed Meds Allergies Allergy/AdvReac Type Severity Reaction Status Date / Time No Known Allergies Allergy Verified 07/07/22 13:29 Active Medications: Current Medications Allopurinol (Allopurinol 100 Mg Tablet) 100 mg PO DAILY [facility] Amlodipine Besylate (Amlodipine Besylate 2.5 Mg Tablet) 2.5 mg PO DAILY [facility]; Protocol Dextrose (Dextrose 50 % 25 Gm/50 Ml Syringe) 25 gm IVPUSH Q15M PRN; Protocol PRN Reason: per Hypoglycemia Standing Ord. Glucose (Glucose Gel 15 Gm Gel..Gram.) 15 gm PO Q15M PRN; Protocol PRN Reason: per Hypoglycemia Standing Ord. Insulin Human Lispro (Insulin Lispro 100 Unit/Ml 3 Ml Vial) 0 unit SUBCUT QIDACHS [facility]; Protocol Non-Formulary Medication (Mecobalamin (Vitamin B12)) 5,000 mcg PO DAILY [facility] Pharmacy Consult (Consult Rx Perform Med Rec) 1 each MISCELLANE ONCE PRN PRN Reason: Consult order Pravastatin Sodium (Pravastatin Sodium 40 Mg Tablet) 40 mg PO DAILY [facility] Sertraline HCl (Sertraline Hcl 25 Mg Tablet) 25 mg PO DAILY [facility] Vitamin D (Cholecalciferol (Vitamin D3) 25 Mcg Tablet) 25 mcg PO DAILY [facility] Home Medications Medication Instructions Recorded Confirmed Last Taken Type allopurinol 100 mg tablet 1 tab PO DAILY 08/11/21 07/18/22 07/18/22 History amlodipine 2.5 mg tablet 1 tab PO DAILY 08/11/21 07/18/22 07/18/22 History aspirin 81 mg capsule 81 mg PO DAILY 08/11/21 07/18/22 07/18/22 History lisinopril 20 mg tablet 1 tab PO DAILY 08/11/21 07/18/22 07/18/22 History metformin 500 mg tablet,extended 1 tab PO TID 08/11/21 07/18/22 07/18/22 History release 24 hr pravastatin 40 mg tablet 1 tab PO DAILY 08/11/21 07/18/22 07/18/22 History sertraline 25 mg tablet 1 tab PO DAILY 08/11/21 07/18/22 07/18/22 History cholecalciferol (vitamin D3) 25 25 mcg PO DAILY 07/07/22 07/18/22 07/18/22 History mcg (1,000 unit) capsule mecobalamin (vitamin B12) 5,000 5,000 mcg PO DAILY 07/07/22 07/18/22 07/18/22 History mcg chewable tablet Physical Exam Vital Signs and Narrative: Vital Signs: Last Vital Signs Resp 16 07/18/22 19:48 BP 142/68 H 07/18/22 19:48 Pulse Ox 96 07/18/22 19:48 O2 Del Method 07/18/22 19:48 BMI result Body Mass Index 54.4 General: no acute distress HEENT: atraumatic Neck: normal to visual inspection CVS: S1, S2, RRR Resp: CTA bilateral Chest: non tender GI: soft, non tender, non distended : no CVA tenderness Skin: no rashes Extremities: left shortended, external rotation Neuro: Oriented X2, grossly intact Psych: cooperative Results Labs CBC and Chem 7: 07/18/22 21:11 07/18/22 21:11 Labs: Laboratory Results - last 24 hr 07/18/22 07/18/22 07/18/22 21:11 21:11 21:11 MCV 95.1 MCH 32.3 MCHC 34.0 RDW 13.2 Plt Count 238 MPV 8.9 L Immature Gran % (Auto) 0.2 Neut % (Auto) 77.8 H Lymph % (Auto) 11.7 L [place] % (Auto) 7.1 Eos % (Auto) 2.5 Baso % (Auto) 0.7 Lymph # (Auto) 1.4 [place] # (Auto) 0.9 Eos # (Auto) 0.3 Baso # (Auto) 0.1 Abs Immat Gran (auto) 0.03 Absolute Neuts (auto) 9.5 H Absolute Nucleated RBC 0.000 Nucleated RBC % (auto) 0.0 PT 12.2 INR 1.1 Anion Gap 12 Estim Creat Clear Calc 84.7 Estimated GFR > 60 Random Glucose 89 Calcium 9.5 D Total Bilirubin 0.6 AST 13 ALT 9 Alkaline Phosphatase 64 Troponin I High Sens Total Protein 6.3 L Albumin 3.8 COVID-19 ([facility]) COVID-19 Clin Com 07/18/22 07/18/22 21:11 21:11 MCV MCH MCHC RDW Plt Count MPV Immature Gran % (Auto) Neut % (Auto) Lymph % (Auto) [place] % (Auto) Eos % (Auto) Baso % (Auto) Lymph # (Auto) [place] # (Auto) Eos # (Auto) Baso # (Auto) Abs Immat Gran (auto) Absolute Neuts (auto) Absolute Nucleated RBC Nucleated RBC % (auto) PT INR Anion Gap Estim Creat Clear Calc Estimated GFR Random Glucose Calcium Total Bilirubin AST ALT Alkaline Phosphatase Troponin I High Sens 3.7 Total Protein Albumin COVID-19 ([facility]) Negative COVID-19 Clin Com See Note Imaging Radiologist's Impressions: Impressions Cervical Spine CT 12/19/22 20:50 IMPRESSION: No acute finding. Specifically no there is no acute intracranial hemorrhage and no acute cervical spine fracture or posttraumatic spinal subluxation. Head CT 07/18/22 20:50 IMPRESSION: No acute finding. Specifically no there is no acute intracranial hemorrhage and no acute cervical spine fracture or posttraumatic spinal subluxation. Chest X-Ray 07/18/22 20:55 IMPRESSION: No acute intrathoracic disease. COPD. Spiculated left lung mass as described above. Hip/Pelvis X-Ray 07/18/22 20:55 IMPRESSION: Intertrochanteric left hip fracture. Pelvis CT 07/18/22 21:07 IMPRESSION: Intertrochanteric fracture of the left femur. Assessment and Plan (1) Primary adenocarcinoma of upper lobe of left lung: Status: Acute Plan 87M PMH HTN, alzheimers/vascular dementia, DM, HLD, gout, lung cancer presented with mechanical fall complicated by left hip fracture mechanical fall complicated by left hip fracture npo after midnight ortho eval pain controlled alzheimers/vascular dementia at baseline holding asa for surgery hld statin htn will hold lisinopril perioperatively conitnue amlodipine for now DM insulin gout allopurinol lung cancer outpatient follow up full code dvt prophylaxis - mechaincal due to pending surgery patient with hip fracture requiring urgent surgical repair, therefore, expected to require atleast 2 midnights inpatient. Time Spent With Patient Time: Total time managing care of this patient today ____ minutes. Quality Stroke Does the patient have a stroke diagnosis?: No VTE Prior VTE?: No VTE Risk Level:: Medical - moderate - high VTE Device Contraindication: N/A - Device Ordered VTE Drug Contraindication: Treatment Not Indicated
[2022-07-19 00:05] VITALS: BP 124/56; PULSE 59; RESP 16; TEMP 36.5; O2SAT 96
[2022-07-19 01:34] VITALS: BP 162/70; PULSE 66; RESP 16; TEMP 36.2; O2SAT 99
--- NOTE | 2022-07-19 01:34 | PC.NURSE ---
RN to RN report provided to NISSA Castro. Pt being transferred to room 373. Pt aware of plan of care.
[2022-07-19 01:42] VITALS: BMI 25.3
[2022-07-19] MEDS: 0.9 % Sodium Chloride Flush 3 ML SYRINGE IVFLUSH ×2 (02:00→09:20)
[2022-07-19 06:38] LABS: Hematocrit 37.8 % (42.0-52.0); Hemoglobin 12.9 g/dl (14.0-18.0); Mean Corpuscular HGB Conc 34.1 g/dl (31.0-36.0); Mean Corpuscular Hemoglobin 32.2 pg (27.0-33.0); Mean Corpuscular Volume 94.3 fL (80.0-98.0); Mean Platelet Volume 9.2 fL (9.4-12.4); Platelet Count 234 X10*3/uL (160-400); Red Blood Count 4.01 X10*6/uL (4.60-5.80); Red Cell Distribution Width 12.8 % (11.0-16.0); White Blood Count 10.5 X10*3/uL (4.8-10.8)
--- NOTE | 2022-07-19 06:54 | P.PNIM_ITS ---
Subjective Subjective Date of Service: 07/19/22 Interval History: cc: fall interval history: comfortable Cardiovascular Cardiovascular: Reports no additional cardiovascular complaints Gastrointestinal Gastrointestinal: Reports no additional gastrointestinal complaints Physical Exam Vital Signs: Vital Signs: Last Vital Signs Temp 97.1 F 07/19/22 01:34 Pulse 66 07/19/22 01:34 Resp 16 07/19/22 01:34 BP 162/70 H 07/19/22 01:34 Pulse Ox 99 07/19/22 01:34 O2 Del Method 07/19/22 01:34 BMI result Body Mass Index 25.3 General: AO X 2, no acute distress Resp: CTA bilateral, no accessory muscles used CVS: S1,S2,RRR GI: soft, non tender, non distended Neuro: motor grossly intact, alert Psych: appropriate affect, impaired insight Objective Data Active Medications Acetaminophen (Acetaminophen 325 Mg Tablet) 650 mg PO Q6H PRN PRN Reason: Pain, Mild (Pain Scale 1-3) Allopurinol (Allopurinol 100 Mg Tablet) 100 mg PO DAILY [facility] Amlodipine Besylate (Amlodipine Besylate 2.5 Mg Tablet) 2.5 mg PO DAILY [facility]; Protocol Cyanocobalamin (Cyanocobalamin (Vitamin B-12) 1,000 Mcg Tablet) 5,000 mcg PO DAILY [facility] Dextrose (Dextrose 50 % 25 Gm/50 Ml Syringe) 25 gm IVPUSH Q15M PRN; Protocol PRN Reason: per Hypoglycemia Standing Ord. Glucose (Glucose Gel 15 Gm Gel..Gram.) 15 gm PO Q15M PRN; Protocol PRN Reason: per Hypoglycemia Standing Ord. Insulin Human Lispro (Insulin Lispro 100 Unit/Ml 3 Ml Vial) 0 unit SUBCUT QIDACHS [facility]; Protocol Pharmacy Consult (Consult Rx Perform Med Rec) 1 each MISCELLANE ONCE PRN PRN Reason: Consult order Pravastatin Sodium (Pravastatin Sodium 40 Mg Tablet) 40 mg PO DAILY [facility] Sertraline HCl (Sertraline Hcl 25 Mg Tablet) 25 mg PO DAILY [facility] Sodium Chloride (0.9 % Sodium Chloride Flush 3 Ml Syringe) 3 ml IVFLUSH QSHIFT [facility] Last Admin: 07/19/22 02:00 Dose: 3 ml Documented By: SAMANTHA Vitamin D (Cholecalciferol (Vitamin D3) 25 Mcg Tablet) 25 mcg PO DAILY [facility] Labs CBC & Chem 7: 07/19/22 06:04 07/18/22 21:11 Labs: Laboratory Results - last 24 hr 07/18/22 07/18/22 07/18/22 21:11 21:11 21:11 MCV 95.1 MCH 32.3 MCHC 34.0 RDW 13.2 Plt Count 238 MPV 8.9 L Immature Gran % (Auto) 0.2 Neut % (Auto) 77.8 H Lymph % (Auto) 11.7 L [place] % (Auto) 7.1 Eos % (Auto) 2.5 Baso % (Auto) 0.7 Lymph # (Auto) 1.4 [place] # (Auto) 0.9 Eos # (Auto) 0.3 Baso # (Auto) 0.1 Abs Immat Gran (auto) 0.03 Absolute Neuts (auto) 9.5 H Absolute Nucleated RBC 0.000 Nucleated RBC % (auto) 0.0 PT 12.2 INR 1.1 Anion Gap 12 Estim Creat Clear Calc 84.7 Estimated GFR > 60 Random Glucose 89 Calcium 9.5 D Total Bilirubin 0.6 AST 13 ALT 9 Alkaline Phosphatase 64 Troponin I High Sens Total Protein 6.3 L Albumin 3.8 COVID-19 ([facility]) COVID-19 Clin Com 07/18/22 07/18/22 07/19/22 21:11 21:11 06:04 MCV 94.3 MCH 32.2 MCHC 34.1 RDW 12.8 Plt Count 234 MPV 9.2 L Immature Gran % (Auto) Neut % (Auto) Lymph % (Auto) [place] % (Auto) Eos % (Auto) Baso % (Auto) Lymph # (Auto) [place] # (Auto) Eos # (Auto) Baso # (Auto) Abs Immat Gran (auto) Absolute Neuts (auto) Absolute Nucleated RBC 0.000 Nucleated RBC % (auto) 0.0 PT INR Anion Gap Estim Creat Clear Calc Estimated GFR Random Glucose Calcium Total Bilirubin AST ALT Alkaline Phosphatase Troponin I High Sens 3.7 Total Protein Albumin COVID-19 ([facility]) Negative COVID-19 Clin Com See Note Assessment and Plan (1) Closed fracture of left hip: Status: Acute Plan 87M PMH HTN, alzheimers/vascular dementia, DM, HLD, gout, lung cancer presented with mechanical fall complicated by left hip fracture mechanical fall complicated by left hip fracture npo ortho eval pain controlled alzheimers/vascular dementia at baseline holding asa for surgery hld statin htn will hold lisinopril perioperatively continue amlodipine for now DM insulin gout allopurinol lung cancer outpatient follow up full code dvt prophylaxis - mechanical due to pending surgery reason for continued hospitalization:plan for surgery Time Spent With Patient Time: Total time managing care of this patient today ____ minutes. Quality Stroke Does the patient have a stroke diagnosis?: No VTE Prior VTE?: No VTE Risk Level:: Medical - moderate - high VTE Device Contraindication: N/A - Device Ordered VTE Drug Contraindication: Treatment Not Indicated
[2022-07-19 06:59] LABS: Anion Gap 13 (12-20); Blood Urea Nitrogen 18 mg/dL (9-16); Calcium 9.5 mg/dL (8.4-10.2); Carbon Dioxide 25 mmol/L (22-29); Chloride 104 mmol/L (96-108); Creatinine Clr Calc Pharmacy 60.5; Estimated Glomerular Filt Rate > 60; Glucose Fasting 89 mg/dL (60-99); Potassium 3.6 mmol/L (3.3-5.1); Sodium 138 mmol/L (135-145)
[2022-07-19 07:13] VITALS: BP 150/70; PULSE 85; RESP 16; TEMP 36.1; O2SAT 93
--- NOTE | 2022-07-19 07:26 | P.CONOP_ITS ---
History of Present Illness HPI Consult date: 07/19/22 Chief complaint: left hip fracture Narrative: Mr. Montiel is an 87 yo male who presented to the ED after sustaining a mechanical fall at home. He lives with his and ambulates with a cane. PMH significant for lung cancer currently finished his radiation therapy treatment at [facility], [facility], and . After the fall the patient had immediate left hip pain and was unable to ambulate. X-rays obtained in the ED revealed a left hip intertroch fx. He was admitted to the medicine service with orthopedic consult for further evaluation and treatment. 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 Tumor cells, uncertain whether benign or malignant Venous insufficiency (chronic) (peripheral) Family History Family History Father Lung cancer Social History Social History Household Members: Spouse Housing: House Are you a primary pediatric acute care unit nurse to a significant other at home: No Do you presently have visiting nurse or other home services: Yes Patient Tobacco Use Status: Former Tobacco user Tobacco use type: Cigarette Advance Directives Date on File: 03/14/22 service: Yes Current occupational status: retired Current occupation: rt handed Meds Allergies Allergy/AdvReac Type Severity Reaction Status Date / Time No Known Allergies Allergy Verified 07/07/22 13:29 Active Medications: Current Medications Acetaminophen (Acetaminophen 325 Mg Tablet) 650 mg PO Q6H PRN PRN Reason: Pain, Mild (Pain Scale 1-3) Allopurinol (Allopurinol 100 Mg Tablet) 100 mg PO DAILY [facility] Amlodipine Besylate (Amlodipine Besylate 2.5 Mg Tablet) 2.5 mg PO DAILY [facility]; Protocol Cyanocobalamin (Cyanocobalamin (Vitamin B-12) 1,000 Mcg Tablet) 5,000 mcg PO DAILY [facility] Dextrose (Dextrose 50 % 25 Gm/50 Ml Syringe) 25 gm IVPUSH Q15M PRN; Protocol PRN Reason: per Hypoglycemia Standing Ord. Glucose (Glucose Gel 15 Gm Gel..Gram.) 15 gm PO Q15M PRN; Protocol PRN Reason: per Hypoglycemia Standing Ord. Insulin Human Lispro (Insulin Lispro 100 Unit/Ml 3 Ml Vial) 0 unit SUBCUT QIDACHS [facility]; Protocol Pharmacy Consult (Consult Rx Perform Med Rec) 1 each MISCELLANE ONCE PRN PRN Reason: Consult order Pravastatin Sodium (Pravastatin Sodium 40 Mg Tablet) 40 mg PO DAILY [facility] Sertraline HCl (Sertraline Hcl 25 Mg Tablet) 25 mg PO DAILY [facility] Sodium Chloride (0.9 % Sodium Chloride Flush 3 Ml Syringe) [facility] Last Admin: 07/19/22 02:00 Dose: 3 ml Vitamin D (Cholecalciferol (Vitamin D3) 25 Mcg Tablet) 25 mcg PO DAILY [facility] Home Medications Medication Instructions Recorded Confirmed Last Taken Type allopurinol 100 mg tablet 1 tab PO DAILY 08/11/21 07/18/22 07/18/22 History amlodipine 2.5 mg tablet 1 tab PO DAILY 08/11/21 07/18/22 07/18/22 History aspirin 81 mg capsule 81 mg PO DAILY 08/11/21 07/18/22 07/18/22 History lisinopril 20 mg tablet 1 tab PO DAILY 08/11/21 07/18/22 07/18/22 History metformin 500 mg tablet,extended 1 tab PO TID 08/11/21 07/18/22 07/18/22 History release 24 hr pravastatin 40 mg tablet 1 tab PO DAILY 08/11/21 07/18/22 07/18/22 History sertraline 25 mg tablet 1 tab PO DAILY 08/11/21 07/18/22 07/18/22 History cholecalciferol (vitamin D3) 25 25 mcg PO DAILY 07/07/22 07/18/22 07/18/22 History mcg (1,000 unit) capsule mecobalamin (vitamin B12) 5,000 5,000 mcg PO DAILY 07/07/22 07/18/22 07/18/22 History mcg chewable tablet Physical Exam 2 Vital Signs: Vital Signs: Last Vital Signs Temp 97 F 07/19/22 07:13 Pulse 85 07/19/22 07:13 Resp 16 07/19/22 07:13 BP 150/70 H 07/19/22 07:13 Pulse Ox 93 07/19/22 07:13 O2 Del Method 12/20/22 07:13 BMI result Body Mass Index 25.3 Const: General: cooperative, healthy appearing and no acute distress Resp: Effort & Inspection: normal respiratory effort and able to speak in complete sentences Cardio: Rate: regular rate Peripheral pulses: Peripheral pulses 2+ throughout GI: Palpation (GI): Soft to palpation Skin: Lesions: no lesions Rashes: no rashes Extrem: Other: Left leg is shortened and externally rotated. Pain with log roll. NVI. Results Labs Result Diagrams: 07/19/22 06:04 07/19/22 06:04 Labs: Abnormal lab results 07/18/22 07/18/22 07/19/22 Range/Units 21:11 21:11 06:04 WBC 12.2 H (4.8-10.8) X10*3/uL RBC 3.87 L 4.01 L (4.60-5.80) X10*6/uL Hgb 12.5 L 12.9 L (14.0-18.0) g/dl Hct 36.8 L 37.8 L (42.0-52.0) % MPV 8.9 L 9.2 L (9.4-12.4) fL Neut % (Auto) 77.8 H (45-73) % Lymph % (Auto) 11.7 L (20-40) % Absolute Neuts (auto) 9.5 H (2.0-8.3) x10*3/uL BUN 23 H (9-16) mg/dL Total Protein 6.3 L (6.5-8.0) g/dL 07/19/22 Range/Units 06:04 WBC (4.8-10.8) X10*3/uL RBC (4.60-5.80) X10*6/uL Hgb (14.0-18.0) g/dl Hct (42.0-52.0) % MPV (9.4-12.4) fL Neut % (Auto) (45-73) % Lymph % (Auto) (20-40) % Absolute Neuts (auto) (2.0-8.3) x10*3/uL BUN 18 H (9-16) mg/dL Total Protein (6.5-8.0) g/dL H & H 07/18/22 07/19/22 Range/Units 21:11 06:04 Hgb 12.5 L 12.9 L (14.0-18.0) g/dl Hct 36.8 L 37.8 L (42.0-52.0) % Coagulation 07/18/22 Range/Units 21:11 INR 1.1 (0.9-1.1) All other labs normal. Assessment and Plan (1) Closed fracture of left hip: Status: Acute I discussed the case with Dr. Rosa as well as the patients HCP Aline listed on file and explained the extent of the injury to the patient and options available which include surgical intervention. I explained the procedure in detail along with the length of recovery and rehab course. I explained the risk, benefits and alternatives. Risk including, but not limited to infection, blood clots, bleeding, non union or malunion and nerve/tissue damage to surrounding areas. I answered all their questions and with their understanding Aline has consented to move forward with Operative Fixation of the left hip. The patient will be T&S, med clearance to be obtained from medicine and NPO after midnight. Aline (daughter, HCP) [phone] Time Spent With Patient Time: Total time managing care of this patient today ____ minutes. Procedures Date of Service Date of Service: 07/19/22
[2022-07-19 07:32] LABS: Glucose, Whole Blood 79 mg/dL (60-115)
[2022-07-19] MEDS: Pravastatin Sodium 40 MG TABLET PO (09:20)
[2022-07-19] MEDS: Cyanocobalamin (Vitamin B-12) 1,000 MCG TABLET 5000 MCG PO (09:20)
[2022-07-19] MEDS: amLODIPine Besylate 2.5 MG TABLET PO (09:20)
[2022-07-19] MEDS: Sertraline HCL 25 MG TABLET PO (09:20)
[2022-07-19] MEDS: allopurinoL 100 MG TABLET PO (09:20)
[2022-07-19] MEDS: Cholecalciferol (Vitamin D3) 25 MCG TABLET PO (09:21)
[2022-07-19 11:15] LABS: Glucose, Whole Blood 131 mg/dL (60-115)
--- NOTE | 2022-07-19 13:30 | MHC.CM.PN ---
IMM DELIVERED TO DTR/HCP ABDOULAYE 07/19 AND LEFT IN TOP DRAWER OF BEDSIDE TABLE PER REQUEST, PLAN FOR HIP REPAIR TOMORROW 07/20 AND ABDOULAYE REPORTS [facility]REFERRED SNF [facility] PT HAD BEEN THERE LAST YEAR AND DID WELL. CM ALSO MET W/PT AND AT BEDSIDE AND PT'S REPORTED AT BASELINE PT WALKS INDEPENDENTLY HOWEVER USES A WALKER NEEDED AND HAS GRAB BARS BY STAIRS INTO HOUSE AND INTO SHOWER. PT HAS NO HOME SERVICES AND LIVES W/ W/DTR ABDOULAYE IN [place]. PER PTS ABDOULAYE IS IN CHARGE OF CARE FOR PT AND ASKED CM TO CONTACT HER REGARDING PREFERRED SNF ETC. ANTIC D/C THURS TO STR W/BLS TRANSPORT
[2022-07-19 15:33] VITALS: TEMP 37.8
[2022-07-19 16:05] LABS: Glucose, Whole Blood 132 mg/dL (60-115)
[2022-07-19] MEDS: Acetaminophen 325 MG TABLET 650 MG PO (17:57)
[2022-07-19 20:00] VITALS: TEMP 37.6
[2022-07-19 20:40] LABS: Glucose, Whole Blood 129 mg/dL (60-115)
--- NOTE | 2022-07-19 23:50 | PC.NURSE ---
Pt refused to remove dentures for preopt checklist. Second attempt made, not following command and repeated said no. Will reattempt again.
[2022-07-20] VITALS (15 sets, daily range): BP systolic 105–137; BP diastolic 55–94; PULSE 82–107; RESP 11–18; TEMP 36.6–37.3; O2SAT 84–100; BMI 25.3
--- NOTE | 2022-07-20 | ECG_ITS ---
Test Reason : TACHYCARDIA Blood Pressure : / mmHG Vent. 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
[2022-07-20] MEDS: 0.9 % Sodium Chloride Flush 3 ML SYRINGE IVFLUSH ×2 (01:09→10:00)
--- NOTE | 2022-07-20 06:43 | PC.NURSE ---
This RN reattempted for the 4th time to redirect pt to remove dentures in preparation to surgery today, pt refused.
[2022-07-20 06:47] LABS: Hematocrit 39.7 % (42.0-52.0); Hemoglobin 13.4 g/dl (14.0-18.0); Mean Corpuscular HGB Conc 33.8 g/dl (31.0-36.0); Mean Corpuscular Hemoglobin 31.7 pg (27.0-33.0); Mean Corpuscular Volume 93.9 fL (80.0-98.0); Mean Platelet Volume 9.7 fL (9.4-12.4); Platelet Count 229 X10*3/uL (160-400); Red Blood Count 4.23 X10*6/uL (4.60-5.80); Red Cell Distribution Width 12.9 % (11.0-16.0); White Blood Count 13.1 X10*3/uL (4.8-10.8)
[2022-07-20 06:53] LABS: Anion Gap 14 (12-20); Blood Urea Nitrogen 18 mg/dL (9-16); Calcium 9.7 mg/dL (8.4-10.2); Carbon Dioxide 25 mmol/L (22-29); Chloride 104 mmol/L (96-108); Creatinine Clr Calc Pharmacy 61.3; Estimated Glomerular Filt Rate > 60; Glucose Fasting 104 mg/dL (60-99); Potassium 3.7 mmol/L (3.3-5.1); Sodium 139 mmol/L (135-145)
[2022-07-20 07:46] LABS: Glucose, Whole Blood 113 mg/dL (60-115)
--- NOTE | 2022-07-20 09:44 | MHC.CM.PN ---
EMR REVIEWED, PT HAVE HIP RE[PAIR TODAY, CM MET W/DTR/HCP ABDOULAYE AT BEDSIDE AND SHE REPORTED PREFERRED SNF'S ARE [facility] PT WAS LAST YEAR. ANTIC D/C TOMORROW IF BED SECURED AND NO COMPLICATIONS. CM WILL CONT TO FOLLOW D/C NEEDS.
--- NOTE | 2022-07-20 10:23 | HO.PM.IMPN ---
Subjective Subjective Date of Service: 07/20/22 Interval History: confused ,conversing but not making sense, unable to express his needs, pulse mildly elevated likely due to pain, unable to obtain history of chest pain or shortness of breath. Review of Systems Review of Systems: Yes Unobtainable due to mental status Physical Exam Vital Signs: Vital Signs: Last Vital Signs Temp 98.4 F 07/20/22 08:00 Pulse 107 H 07/20/22 08:00 Resp 18 07/20/22 08:00 BP 137/94 H 07/20/22 08:00 Pulse Ox 98 07/20/22 08:00 O2 Del Method 07/20/22 08:00 BMI result Body Mass Index 25.3 Const: Other: General: Awake a lert verbalizing, no acute distress, neck is supple R justine:? CTA bilatera l, no accessory mu scles used CVS: S1 ,S2,RRR GI: soft, non tender, non di stended Neuro:? mo tor grossly intact , alert, pulling sheets all over hi m Psych: impaired insight? Objective Data Active Medications Acetaminophen (Acetaminophen 325 Mg Tablet) 650 mg PO Q6H PRN PRN Reason: Pain, Mild (Pain Scale 1-3) Last Admin: 07/19/22 17:57 Dose: 650 mg Documented By: KATHERINE Allopurinol (Allopurinol 100 Mg Tablet) 100 mg PO DAILY [facility] Last Admin: 07/20/22 08:21 Dose: Not Given Documented By: ANKIT Non-Admin Reason: NPO Amlodipine Besylate (Amlodipine Besylate 2.5 Mg Tablet) 2.5 mg PO DAILY [facility]; Protocol Last Admin: 07/20/22 08:21 Dose: Not Given Documented By: ANKIT Non-Admin Reason: Patient Refused Cyanocobalamin (Cyanocobalamin (Vitamin B-12) 1,000 Mcg Tablet) 5,000 mcg PO DAILY [facility] Last Admin: 07/20/22 08:22 Dose: Not Given Documented By: ANKIT Non-Admin Reason: Patient Refused Dextrose (Dextrose 50 % 25 Gm/50 Ml Syringe) 25 gm IVPUSH Q15M PRN; Protocol PRN Reason: per Hypoglycemia Standing Ord. Glucose (Glucose Gel 15 Gm Gel..Gram.) 15 gm PO Q15M PRN; Protocol PRN Reason: per Hypoglycemia Standing Ord. Dextrose/Lactated Ringer's (D5lr) 1,000 mls @ 100 mls/hr IVCONT .Q10H [facility] Stop: 07/20/22 15:29 Insulin Human Lispro (Insulin Lispro 100 Unit/Ml 3 Ml Vial) 0 unit SUBCUT QIDACHS [facility]; Protocol Last Admin: 07/20/22 08:14 Dose: Not Given Documented By: ANKIT Non-Admin Reason: No Insulin Coverage Pharmacy Consult (Consult Rx Perform Med Rec) 1 each MISCELLANE ONCE PRN PRN Reason: Consult order Pravastatin Sodium (Pravastatin Sodium 40 Mg Tablet) 40 mg PO DAILY [facility] Last Admin: 07/20/22 08:22 Dose: Not Given Documented By: ANKIT Non-Admin Reason: Patient Refused Sertraline HCl (Sertraline Hcl 25 Mg Tablet) 25 mg PO DAILY [facility] Last Admin: 07/20/22 09:56 Dose: Not Given Documented By: MARNIE Non-Admin Reason: NPO Sodium Chloride (0.9 % Sodium Chloride Flush 3 Ml Syringe) 3 ml IVFLUSH QSHIFT [facility] Last Admin: 07/20/22 01:09 Dose: 3 ml Documented By: MARTHA Vitamin D (Cholecalciferol (Vitamin D3) 25 Mcg Tablet) 25 mcg PO DAILY [facility] Last Admin: 07/20/22 08:21 Dose: Not Given Documented By: ANKIT Non-Admin Reason: Patient Refused Labs CBC & Chem 7: 07/20/22 06:12 07/20/22 06:12 Labs: Laboratory Results - last 24 hr 07/19/22 07/19/22 07/19/22 11:10 15:00 16:01 MCV MCH MCHC RDW Plt Count MPV Absolute Nucleated RBC Nucleated RBC % (auto) Anion Gap Estim Creat Clear Calc Estimated GFR POC Glucose 131 H 132 H Fasting Glucose Calcium Blood Type A Negative Antibody Screen NEGATIVE 07/19/22 07/20/22 07/20/22 20:36 06:12 06:12 MCV 93.9 MCH 31.7 MCHC 33.8 RDW 12.9 Plt Count 229 MPV 9.7 Absolute Nucleated RBC 0.000 Nucleated RBC % (auto) 0.0 Anion Gap 14 Estim Creat Clear Calc 61.3 Estimated GFR > 60 POC Glucose 129 H Fasting Glucose 104 H Calcium 9.7 Blood Type Antibody Screen 07/20/22 07:42 MCV MCH MCHC RDW Plt Count MPV Absolute Nucleated RBC Nucleated RBC % (auto) Anion Gap Estim Creat Clear Calc Estimated GFR POC Glucose 113 Fasting Glucose Calcium Blood Type Antibody Screen Assessment and Plan (1) Closed fracture of left hip: Status: Acute Plan 87M PMH HTN, alzheimers/vascular dementia, DM, HLD, gout, lung cancer presented with mechanical fall complicated by left hip fracture mechanical fall complicated by left hip fracture npo is scheduled for left hip surgery today will place on IV fluids, mild tachycardia likely due to pain, will give IV morphine, scheduled Tylenol, obtain EKG patient can proceed with surgery no further workup warranted at this time low-grade fever and leukocytosis likely reactive related to hip fracture, chest x-ray showed no acute infiltrate,Ua ordered, unable to collect urine follow clinical course, likely can not check urinalysis once Damon catheter placed in OR alzheimers/vascular dementia pleasantly confused at baseline holding asa for surgery hld statin htn continue amlodipine , BP is slightly elevated, lisinopril 20 mg by mouth on hold follow blood pressure closely and resume lisinopril DM blood sugar 104, hold metformin continue insulin sliding scale gout on allopurinol lung cancer outpatient follow up full code dvt prophylaxis - mechanical due to pending surgery reason for continued hospitalization:plan for left hip surgery Time Spent With Patient Time: Total time managing care of this patient today ____ minutes. Quality Stroke Does the patient have a stroke diagnosis?: No VTE Prior VTE?: No VTE Risk Level:: Medical - moderate - high VTE Device Contraindication: N/A - Device Ordered VTE Drug Contraindication: Treatment Not Indicated
[2022-07-20] MEDS: Dextrose 5 % and Lactated Ring 1,000 ML 100 ML IVCONT (11:00)
[2022-07-20 11:29] LABS: Glucose, Whole Blood 96 mg/dL (60-115)
[2022-07-20 12:21] LABS: Appearance Urine Cloudy; Color Urine Yellow; Glucose Urine UA Negative (Negative); Leukocyte Esterase Urine Negative (Negative); Nitrite Urine Negative (Negative); PH 5.5 (5.0-9.0); Specific Gravity - Urine 1.025 (1.005-1.025); UMIC TRIGGER UACC YES; Urine Blood Trace (Negative); Urine Ketones 40 mg/dL (Negative); Urine Protein 30 (1+) mg/dL (Neg-Trace)
[2022-07-20 12:38] LABS: Bacteria Urine None Seen (None Seen); Calcium Oxalate Crystals Urine Present; Hyaline Casts Urine 0-2 /LPF (0-2); Other Crystals Urine Present; Squamous Epithelial Cell Urine 0-2 /HPF (0-2); WBC Urine 0-5 /HPF (0-5)
--- NOTE | 2022-07-20 12:48 | HO.ANESPROP2 ---
HPI - Anesthesia Eval Consult details Narrative: 87 M for IM nailing frequent falls , lung cancer left s/p radiation, dementia . Consent obtained from HCP . She understands that he is a very high risk patient for lolita-operative complications . She accepts the risks and would like to proceed with the surgery PMFSH Active Problems Active Problems: All Active Problems (Updated 07/19/22 @ 09:24 by NASIMA Wade) Alzheimers disease (Acute) Closed fracture of left hip (Acute) Fracture of shaft of left ulna (Acute) Fracture of shaft of ulna with routine healing (Acute) Pulmonary nodule (Acute) Primary adenocarcinoma of upper lobe of left lung (Acute) Past Medical History Medical History (Updated 07/19/22 @ 09:24 by NASIMA Wade) Alzheimers disease Ataxia Diabetes Diabetes Gout Gout History of tumor HTN (hypertension) Hyperlipidemia Hypertension 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 Tumor cells, uncertain whether benign or malignant Venous insufficiency (chronic) (peripheral) Family History Family History Father Lung cancer Family history of problems with anesthesia: No Surgical History History of Problems with Anesthesia: No Social History Social History Household Members: Spouse Housing: House Are you a primary career technical education instructor to a significant other at home: No Do you presently have visiting nurse or other home services: Yes Patient Tobacco Use Status: Former Tobacco user Tobacco use type: Cigarette Advance Directives Date on File: 03/14/22 service: Yes Current occupational status: retired Current occupation: rt handed Meds Allergies Allergy/AdvReac Type Severity Reaction Status Date / Time No Known Allergies Allergy Verified 07/07/22 13:29 Active Medications: Current Medications Acetaminophen (Acetaminophen 325 Mg Tablet) 650 mg PO Q6H PRN PRN Reason: Pain, Mild (Pain Scale 1-3) Last Admin: 07/19/22 17:57 Dose: 650 mg Acetaminophen (Acetaminophen 325 Mg Tablet) 650 mg PO TID [facility] Allopurinol (Allopurinol 100 Mg Tablet) 100 mg PO DAILY [facility] Last Admin: 07/20/22 08:21 Dose: Not Given Amlodipine Besylate (Amlodipine Besylate 2.5 Mg Tablet) 2.5 mg PO DAILY [facility]; Protocol Last Admin: 07/20/22 08:21 Dose: Not Given Cyanocobalamin (Cyanocobalamin (Vitamin B-12) 1,000 Mcg Tablet) 5,000 mcg PO DAILY [facility] Last Admin: 07/20/22 08:22 Dose: Not Given Dextrose (Dextrose 50 % 25 Gm/50 Ml Syringe) 25 gm IVPUSH Q15M PRN; Protocol PRN Reason: per Hypoglycemia Standing Ord. Glucose (Glucose Gel 15 Gm Gel..Gram.) 15 gm PO Q15M PRN; Protocol PRN Reason: per Hypoglycemia Standing Ord. Dextrose/Lactated Ringer's (D5lr) 500 mls @ 100 mls/hr IVCONT .Q5H [facility] Stop: 07/20/22 16:14 Insulin Human Lispro (Insulin Lispro 100 Unit/Ml 3 Ml Vial) 0 unit SUBCUT QIDACHS [facility]; Protocol Last Admin: 07/20/22 08:14 Dose: Not Given Morphine Sulfate (Morphine Sulfate 4 Mg/Ml Cartridge) 3 mg IVPUSH Q4H PRN; Protocol PRN Reason: Pain, Severe (Pain Scale 7-10) Pharmacy Consult (Consult Rx Perform Med Rec) 1 each MISCELLANE ONCE PRN PRN Reason: Consult order Pravastatin Sodium (Pravastatin Sodium 40 Mg Tablet) 40 mg PO DAILY [facility] Last Admin: 07/20/22 08:22 Dose: Not Given Sertraline HCl (Sertraline Hcl 25 Mg Tablet) 25 mg PO DAILY [facility] Last Admin: 07/20/22 09:56 Dose: Not Given Sodium Chloride (0.9 % Sodium Chloride Flush 3 Ml Syringe) [facility] Admin: 07/20/22 01:09 Dose: 3 ml Vitamin D (Cholecalciferol (Vitamin D3) 25 Mcg Tablet) 25 mcg PO DAILY [facility] Last Admin: 07/20/22 08:21 Dose: Not Given Home Medications Medication Instructions Recorded Confirmed Last Taken Type allopurinol 100 mg tablet 1 tab PO DAILY 08/11/21 07/18/22 07/18/22 History amlodipine 2.5 mg tablet 1 tab PO DAILY 08/11/21 07/18/22 07/18/22 History aspirin 81 mg capsule 81 mg PO DAILY 08/11/21 07/18/22 07/18/22 History lisinopril 20 mg tablet 1 tab PO DAILY 08/11/21 07/18/22 07/18/22 History metformin 500 mg tablet,extended 1 tab PO TID 08/11/21 07/18/22 07/18/22 History release 24 hr pravastatin 40 mg tablet 1 tab PO DAILY 08/11/21 07/18/22 07/18/22 History sertraline 25 mg tablet 1 tab PO DAILY 08/11/21 07/18/22 07/18/22 History cholecalciferol (vitamin D3) 25 25 mcg PO DAILY 07/07/22 07/18/22 07/18/22 History mcg (1,000 unit) capsule mecobalamin (vitamin B12) 5,000 5,000 mcg PO DAILY 07/07/22 07/18/22 07/18/22 History mcg chewable tablet Exam Exam Date and Time: July 20, 2022 124 Height,Weight and Vital Signs: Height 5 ft 6 in Weight 71.3 kg Last Vital Signs Temp 98.4 F 07/20/22 08:00 Pulse 107 H 07/20/22 08:00 Resp 18 07/20/22 08:00 BP 137/94 H 07/20/22 08:00 Pulse Ox 98 07/20/22 08:00 O2 Del Method 07/20/22 08:00 Pertinent Lab Results Pertinent Lab Results: Laboratory Tests 07/18/22 07/18/22 07/18/22 21:11 21:11 21:11 WBC 12.2 H RBC 3.87 L Hgb 12.5 L Hct 36.8 L MCV 95.1 MCH 32.3 MCHC 34.0 RDW 13.2 Plt Count 238 MPV 8.9 L Immature Gran % (Auto) 0.2 Neut % (Auto) 77.8 H Lymph % (Auto) 11.7 L [place] % (Auto) 7.1 Eos % (Auto) 2.5 Baso % (Auto) 0.7 Lymph # (Auto) 1.4 [place] # (Auto) 0.9 Eos # (Auto) 0.3 Baso # (Auto) 0.1 Abs Immat Gran (auto) 0.03 Absolute Neuts (auto) 9.5 H Absolute Nucleated RBC 0.000 Nucleated RBC % (auto) 0.0 PT 12.2 INR 1.1 Sodium 137 Potassium 4.1 D Chloride 104 Carbon Dioxide 25 Anion Gap 12 BUN 23 H Creatinine 0.88 Estim Creat Clear Calc 84.7 Estimated GFR > 60 POC Glucose Random Glucose 89 Fasting Glucose Calcium 9.5 D Total Bilirubin 0.6 AST 13 ALT 9 Alkaline Phosphatase 64 Troponin I High Sens Total Protein 6.3 L Albumin 3.8 Urine Color Urine Appearance Urine pH Ur Specific [place] Urine Protein Urine Glucose (UA) Urine Ketones Urine Blood Urine Nitrite Ur Leukocyte Esterase Urine RBC Urine WBC Ur Squamous Epith Cells Calcium Oxalate Crystal Other Crystals Urine Bacteria Hyaline Casts COVID-19 ([facility]) COVID-19 Clin Com Blood Type Antibody Screen 07/18/22 07/18/22 07/19/22 21:11 21:11 06:04 WBC 10.5 RBC 4.01 L Hgb 12.9 L Hct 37.8 L MCV 94.3 MCH 32.2 MCHC 34.1 RDW 12.8 Plt Count 234 MPV 9.2 L Immature Gran % (Auto) Neut % (Auto) Lymph % (Auto) [place] % (Auto) Eos % (Auto) Baso % (Auto) Lymph # (Auto) [place] # (Auto) Eos # (Auto) Baso # (Auto) Abs Immat Gran (auto) Absolute Neuts (auto) Absolute Nucleated RBC 0.000 Nucleated RBC % (auto) 0.0 PT INR Sodium Potassium Chloride Carbon Dioxide Anion Gap BUN Creatinine Estim Creat Clear Calc Estimated GFR POC Glucose Random Glucose Fasting Glucose Calcium Total Bilirubin AST ALT Alkaline Phosphatase Troponin I High Sens 3.7 Total Protein Albumin Urine Color Urine Appearance Urine pH Ur Specific [place] Urine Protein Urine Glucose (UA) Urine Ketones Urine Blood Urine Nitrite Ur Leukocyte Esterase Urine RBC Urine WBC Ur Squamous Epith Cells Calcium Oxalate Crystal Other Crystals Urine Bacteria Hyaline Casts COVID-19 ([facility]) Negative COVID-19 Clin Com See Note Blood Type Antibody Screen 07/19/22 07/19/22 07/19/22 06:04 07:13 11:10 WBC RBC Hgb Hct MCV MCH MCHC RDW Plt Count MPV Immature Gran % (Auto) Neut % (Auto) Lymph % (Auto) [place] % (Auto) Eos % (Auto) Baso % (Auto) Lymph # (Auto) [place] # (Auto) Eos # (Auto) Baso # (Auto) Abs Immat Gran (auto) Absolute Neuts (auto) Absolute Nucleated RBC Nucleated RBC % (auto) PT INR Sodium 138 Potassium 3.6 Chloride 104 Carbon Dioxide 25 Anion Gap 13 BUN 18 H Creatinine 0.79 Estim Creat Clear Calc 60.5 Estimated GFR > 60 POC Glucose 79 131 H Random Glucose Fasting Glucose 89 Calcium 9.5 Total Bilirubin AST ALT Alkaline Phosphatase Troponin I High Sens Total Protein Albumin Urine Color Urine Appearance Urine pH Ur Specific [place] Urine Protein Urine Glucose (UA) Urine Ketones Urine Blood Urine Nitrite Ur Leukocyte Esterase Urine RBC Urine WBC Ur Squamous Epith Cells Calcium Oxalate Crystal Other Crystals Urine Bacteria Hyaline Casts COVID-19 ([facility]) COVID-19 [facility] Com Blood Type Antibody Screen 07/19/22 07/19/22 07/19/22 15:00 16:01 20:36 WBC RBC Hgb Hct MCV MCH MCHC RDW Plt Count MPV Immature Gran % (Auto) Neut % (Auto) Lymph % (Auto) [place] % (Auto) Eos % (Auto) Baso % (Auto) Lymph # (Auto) [place] # (Auto) Eos # (Auto) Baso # (Auto) Abs Immat Gran (auto) Absolute Neuts (auto) Absolute Nucleated RBC Nucleated RBC % (auto) PT INR Sodium Potassium Chloride Carbon Dioxide Anion Gap BUN Creatinine Estim Creat Clear Calc Estimated GFR POC Glucose 132 H 129 H Random Glucose Fasting Glucose Calcium Total Bilirubin AST ALT Alkaline Phosphatase Troponin I High Sens Total Protein Albumin Urine Color Urine Appearance Urine pH Ur Specific [place] Urine Protein Urine Glucose (UA) Urine Ketones Urine Blood Urine Nitrite Ur Leukocyte Esterase Urine RBC Urine WBC Ur Squamous Epith Cells Calcium Oxalate Crystal Other Crystals Urine Bacteria Hyaline Casts COVID-19 ([facility]) [id number] Blood Type A Negative Antibody Screen NEGATIVE 07/20/22 07/20/22 07/20/22 06:12 06:12 07:42 WBC 13.1 H RBC 4.23 L Hgb 13.4 L Hct 39.7 L MCV 93.9 MCH 31.7 MCHC 33.8 RDW 12.9 Plt Count 229 MPV 9.7 Immature Gran % (Auto) Neut % (Auto) Lymph % (Auto) [place] % (Auto) Eos % (Auto) Baso % (Auto) Lymph # (Auto) [place] # (Auto) Eos # (Auto) Baso # (Auto) Abs Immat Gran (auto) Absolute Neuts (auto) Absolute Nucleated RBC 0.000 Nucleated RBC % (auto) 0.0 PT INR Sodium 139 Potassium 3.7 Chloride 104 Carbon Dioxide 25 Anion Gap 14 BUN 18 H Creatinine 0.78 Estim Creat Clear Calc 61.3 Estimated GFR > 60 POC Glucose 113 Random Glucose Fasting Glucose 104 H Calcium 9.7 Total Bilirubin AST ALT Alkaline Phosphatase Troponin I High Sens Total Protein Albumin Urine Color Urine Appearance Urine pH Ur Specific [place] Urine Protein Urine Glucose (UA) Urine Ketones Urine Blood Urine Nitrite Ur Leukocyte Esterase Urine RBC Urine WBC Ur Squamous Epith Cells Calcium Oxalate Crystal Other Crystals Urine Bacteria Hyaline Casts COVID-19 ([facility]) COVID-19 Clin Com Blood Type Antibody Screen 07/20/22 07/20/22 11:23 12:06 WBC RBC Hgb Hct MCV MCH MCHC RDW Plt Count MPV Immature Gran % (Auto) Neut % (Auto) Lymph % (Auto) [place] % (Auto) Eos % (Auto) Baso % (Auto) Lymph # (Auto) [place] # (Auto) Eos # (Auto) Baso # (Auto) Abs Immat Gran (auto) Absolute Neuts (auto) Absolute Nucleated RBC Nucleated RBC % (auto) PT INR Sodium Potassium Chloride Carbon Dioxide Anion Gap BUN Creatinine Estim Creat Clear Calc Estimated GFR POC Glucose 96 Random Glucose Fasting Glucose Calcium Total Bilirubin AST ALT Alkaline Phosphatase Troponin I High Sens Total Protein Albumin Urine Color Yellow Urine Appearance Cloudy Urine pH 5.5 Ur Specific [place] 1.025 Urine Protein 30 (1+) H Urine Glucose (UA) Negative Urine Ketones 40 Urine Blood Trace H Urine Nitrite Negative Ur Leukocyte Esterase Negative Urine RBC 3-5 H Urine WBC 0-5 Ur Squamous Epith Cells 0-2 Calcium Oxalate Crystal Present Other Crystals Present Urine Bacteria None Seen Hyaline Casts 0-2 COVID-19 ([facility]) COVID-19 Clin Com Blood Type Antibody Screen Airway Mallampati Class: IV Denture: Upper and Lower Loose/Missing/Broken Teeth: Yes Heart: S1,S2 Lungs: b/l breath sounds Assessment and Plan Assessment Anesthesia Assessment: Anesthesia Plan Discussed and Chart Reviewed Final Anesthetic Review Family History of Problems with Anesthesia: No History of Problems with Anesthesia: No NPO: Yes ASA Class: IV Final Preanesthetic Review: Meds/Allgs Chart Reviewed, Consent Obtained/Reviewed and Anes Risks/Benef Reviewed Patient Risk: High Procedure Risk: Intermediate Anesthetic Plan Anesthetic Plan: GA Disposition: Inp. Admit - Standard Bed
--- NOTE | 2022-07-20 13:19 | MHC.SHP ---
Pre-Procedural Eval Section A Date of Service: 07/20/22 The patient is an INPATIENT: Yes Changes since office visit: No Cold of Flu in the past 2 weeks, No New Medical Problems, No Changes in Medication and No Patient answered all questions The History & Physical has been completed within 30 days and I have reviewed it.: Yes Section B Chief Complaint: left hip fracture Allergies: Allergies Allergy/AdvReac Type Severity Reaction Status Date / Time No Known Allergies Allergy Verified 07/07/22 13:29 Plan I have reviewed the history and physical and performed a pertinent physical examination on my patient. No changes have occurred unless specified. Time Spent With Patient Time: Total time managing care of this patient today ____ minutes.
--- NOTE | 2022-07-20 14:48 | P.BOP_ITS ---
Brief Operative Note Date of Service: 07/20/22 Pre-op diagnosis: left hip fracture Post-op diagnosis: same Procedure: IMN left hip Implants: [place] 125 deg [id number] with 100 mm hip screw and 42.5 distal interlock Surgeon: Olayinka Rosa MD Anesthesia: GETA and local Was an Director [employer] used for this Procedure?: No Estimated blood loss (mL): 100 IV fluids (mL): 600 Pathology: none sent Condition: stable Disposition: PACU
--- NOTE | 2022-07-20 15:17 | P.OP_ITS ---
Operative Note Operative Note Date of Service: 07/20/22 Narrative: Date of Service: 07/20/22 Pre-op diagnosis: left hip fracture Post-op diagnosis: same Procedure: IMN left hip Implants: [place] 125 deg [id number] with 100 mm hip screw and 42.5 distal interlock Surgeon: Olayinka Rosa MD Anesthesia: GETA and local Was an Inspector Government Property used for this Procedure?: No Estimated blood loss (mL): 100 IV fluids (mL): 600 Pathology: none sent Condition: stable Disposition: PACU Procedure in detail: Patient was brought to the operating room and prepped and draped in standard sterile fashion. Time-out was called to identify proper site procedure proper surgeon and IV antibiotics per weight were administered. She was positioned on the fracture table and a traction and slight internal rotation were performed and biplanar fluoroscopy confirmed initial fracture reduction. I then made a stab incision proximal to the greater trochanter in using a guidewire made a entry point just lateral to the tip of the greater trochanter and placed a guidewire into the femoral metadiaphysis. I then over-reamed with 15 mm Reamer placed my ball-tip guidewire down distally in the femur and measured my length. I selected a 125 deg [id number] nail and reamed up to a 13. I then placed the nail. I then turned my attention to the hip screw where I used a guidewire and a tip apex distance of less than 1.5 measured my hip screw. I then pre drilled and placed a 100 mm hip screw using biplanar fluoroscopy. Once I was satisfied with the position of the hip screw I turned my attention to the distal aspect of the nail. Using perfect [place] technique I placed 1 static distal interlocking screw in standard AO technique. I then removed all I then placed my set screw proximally and removed all extraneous instrumentation. Final biplanar radiographs were taken. I was satisfied with the position of the hardware and the fracture reduction. I think copiously irrigated closed with absorbable sutures misbah and injected 30 mL of into the area of the incisions. Traction was let down patient was placed in sterile dressing awakened from anesthesia brought to recovery room stable condition there were no known complications.
[2022-07-20 16:12] LABS: Glucose, Whole Blood 117 mg/dL (60-115)
[2022-07-20 21:03] LABS: Glucose, Whole Blood 103 mg/dL (60-115)
[2022-07-20 21:03] LABS: Glucose, Whole Blood 94 mg/dL (60-115)
[2022-07-21 04:00] VITALS: BP 112/56; PULSE 96; RESP 16; TEMP 36.4; O2SAT 98
[2022-07-21] MEDS: 0.9 % Sodium Chloride Flush 3 ML SYRINGE IVFLUSH ×4 (05:36→20:29)
[2022-07-21 07:22] LABS: Hematocrit 34.6 % (42.0-52.0); Hemoglobin 11.9 g/dl (14.0-18.0)
[2022-07-21 07:43] VITALS: BP 106/64; PULSE 94; RESP 16; TEMP 36.6; O2SAT 97
--- NOTE | 2022-07-21 07:56 | PM.PNORT ---
Subjective Subjective Date of Service: 07/21/22 Interval history: POD1 s/p left hip IM Nail. No overnight events. Patient is resting in bed. Confused at baseline. Physical Exam Vital Signs: Vital Signs: Last Vital Signs Temp 97.9 F 07/21/22 07:43 Pulse 94 07/21/22 07:43 Resp 16 07/21/22 07:43 BP 106/64 07/21/22 07:43 Pulse Ox 97 07/21/22 07:43 O2 Del Method 07/21/22 07:43 O2 Flow Rate 96 07/21/22 07:43 BMI result Body Mass Index 25.3 Const: General: cooperative, healthy appearing and no acute distress Resp: Effort & Inspection: normal respiratory effort and able to speak in complete sentences Cardio: Rate: regular rate Peripheral pulses: Peripheral pulses 2+ throughout GI: Palpation (GI): Soft to palpation Skin: Lesions: no lesions Rashes: no rashes Extrem: Other: Left hip dressings are c/d/i. NVI. Procedures Date of Service Date of Service: 07/21/22 Progress Note: A&P Assessment and plan (1) Closed fracture of left hip: Status: Acute Assessment and Plan: Continue pain mgmnt Begin Lovenox for dvt ppx begin PT for left hip IM Nail - WBAT Dispo planning-Pending PT eval, pain mgmnt Time Spent With Patient Time: Total time managing care of this patient today ____ minutes. Quality Stroke Does the patient have a stroke diagnosis?: No VTE Prior VTE?: No VTE Risk Level:: Medical - moderate - high VTE Device Contraindication: N/A - Device Ordered VTE Drug Contraindication: Treatment Not Indicated
[2022-07-21 08:00] VITALS: BP 106/64; PULSE 94; RESP 16; TEMP 36.6; O2SAT 97
[2022-07-21] MEDS: Morphine Sulfate 4 MG/ML CARTRIDGE 3 MG IVPUSH ×2 (08:03→13:45)
[2022-07-21 08:16] LABS: Glucose, Whole Blood 104 mg/dL (60-115)
[2022-07-21 08:21] VITALS: BP 106/64; PULSE 94; O2SAT 97
[2022-07-21] MEDS: Cholecalciferol (Vitamin D3) 25 MCG TABLET PO (09:52)
[2022-07-21] MEDS: amLODIPine Besylate 2.5 MG TABLET PO (09:52)
[2022-07-21] MEDS: allopurinoL 100 MG TABLET PO (09:52)
[2022-07-21] MEDS: Pravastatin Sodium 40 MG TABLET PO (09:52)
[2022-07-21] MEDS: Sertraline HCL 25 MG TABLET PO (09:52)
[2022-07-21] MEDS: Acetaminophen 325 MG TABLET 650 MG PO (09:53)
[2022-07-21] MEDS: Cyanocobalamin (Vitamin B-12) 1,000 MCG TABLET 5000 MCG PO (09:53)
--- NOTE | 2022-07-21 11:46 | HO.PM.IMPN ---
Subjective Subjective Date of Service: 07/21/22 Interval History: cc: fall, hip pain interval history:no new complaints, confused Cardiovascular Cardiovascular: Reports no additional cardiovascular complaints Respiratory Respiratory: Reports no additional respiratory complaints Physical Exam Vital Signs: Vital Signs: Last Vital Signs Temp 97.9 F 07/21/22 07:43 Pulse 94 07/21/22 08:21 Resp 16 07/21/22 07:43 BP 106/64 07/21/22 08:21 Pulse Ox 97 07/21/22 08:21 O2 Del Method 07/21/22 07:43 O2 Flow Rate 96 07/21/22 07:43 BMI result Body Mass Index 25.3 Const: General: cooperative, healthy appearing and no acute distress Resp: Effort & Inspection: normal respiratory effort and able to speak in complete sentences Cardio: Rate: regular rate Peripheral pulses: Peripheral pulses 2+ throughout GI: Palpation (GI): Soft to palpation Skin: Lesions: no lesions Rashes: no rashes Extrem: Other: Left hip dressings are c/d/i. NVI. Objective Data Active Medications Acetaminophen (Acetaminophen 325 Mg Tablet) 650 mg PO Q6H PRN PRN Reason: Pain, Mild (Pain Scale 1-3) Last Admin: 07/19/22 17:57 Dose: 650 mg Documented By: KATHERINE Acetaminophen (Acetaminophen 325 Mg Tablet) 650 mg PO TID [facility] Last Admin: 07/21/22 09:53 Dose: 650 mg Documented By: MARNIE Allopurinol (Allopurinol 100 Mg Tablet) 100 mg PO DAILY [facility] Last Admin: 07/21/22 09:52 Dose: 100 mg Documented By: MARNIE Amlodipine Besylate (Amlodipine Besylate 2.5 Mg Tablet) 2.5 mg PO DAILY [facility]; Protocol Last Admin: 07/21/22 09:52 Dose: 2.5 mg Documented By: MARNIE Cyanocobalamin (Cyanocobalamin (Vitamin B-12) 1,000 Mcg Tablet) 5,000 mcg PO DAILY [facility] Last Admin: 07/21/22 09:53 Dose: 5,000 mcg Documented By: MARNIE Dextrose (Dextrose 50 % 25 Gm/50 Ml Syringe) 25 gm IVPUSH Q15M PRN; Protocol PRN Reason: per Hypoglycemia Standing Ord. Enoxaparin Sodium (Enoxaparin Sodium 40 Mg/0.4 Ml Syringe) 40 mg SUBCUT Q24H [facility] Glucose (Glucose Gel 15 Gm Gel..Gram.) 15 gm PO Q15M PRN; Protocol PRN Reason: per Hypoglycemia Standing Ord. Insulin Human Lispro (Insulin Lispro 100 Unit/Ml 3 Ml Vial) 0 unit SUBCUT QIDACHS [facility]; Protocol Last Admin: 07/21/22 11:46 Dose: Not Given Documented By: MARNIE Non-Admin Reason: No Insulin Coverage Morphine Sulfate (Morphine Sulfate 4 Mg/Ml Cartridge) 3 mg IVPUSH Q4H PRN; Protocol PRN Reason: Pain, Severe (Pain Scale 7-10) Last Admin: 07/21/22 08:03 Dose: 3 mg Documented By: MARNIE Pharmacy Consult (Consult Rx Perform Med Rec) 1 each MISCELLANE ONCE PRN PRN Reason: Consult order Pravastatin Sodium (Pravastatin Sodium 40 Mg Tablet) 40 mg PO DAILY [facility] Last Admin: 07/21/22 09:52 Dose: 40 mg Documented By: MARNIE Sertraline HCl (Sertraline Hcl 25 Mg Tablet) 25 mg PO DAILY [facility] Last Admin: 07/21/22 09:52 Dose: 25 mg Documented By: MARNIE Sodium Chloride (0.9 % Sodium Chloride Flush 3 Ml Syringe) 3 ml IVFLUSH QSHIFT [facility] Last Admin: 07/21/22 08:09 Dose: 3 ml Documented By: MARNIE Vitamin D (Cholecalciferol (Vitamin D3) 25 Mcg Tablet) 25 mcg PO DAILY [facility] Last Admin: 07/21/22 09:52 Dose: 25 mcg Documented By: MARNIE Labs CBC & Chem 7: 07/21/22 07:16 07/20/22 06:12 Labs: Laboratory Results - last 24 hr 07/20/22 07/20/22 07/20/22 12:06 16:06 18:23 POC Glucose 117 H 103 Urine Color Yellow Urine Appearance Cloudy Urine pH 5.5 Ur Specific [place] 1.025 Urine Protein 30 (1+) H Urine Glucose (UA) Negative Urine Ketones 40 Urine Blood Trace H Urine Nitrite Negative Ur Leukocyte Esterase Negative Urine RBC 3-5 H Urine WBC 0-5 Ur Squamous Epith Cells 0-2 Calcium Oxalate Crystal Present Other Crystals Present Urine Bacteria None Seen Hyaline Casts 0-2 07/20/22 07/21/22 19:50 07:42 POC Glucose 94 104 Urine Color Urine Appearance Urine pH Ur Specific [place] Urine Protein Urine Glucose (UA) Urine Ketones Urine Blood Urine Nitrite Ur Leukocyte Esterase Urine RBC Urine WBC Ur Squamous Epith Cells Calcium Oxalate Crystal Other Crystals Urine Bacteria Hyaline Casts Assessment and Plan (1) Closed fracture of left hip: Status: Acute Plan 87M PMH HTN, alzheimers/vascular dementia, DM, HLD, gout, lung cancer presented with mechanical fall complicated by left hip fracture mechanical fall complicated by left hip fracture POD 1 plan for STR low-grade fever and leukocytosis likely reactive resolved alzheimers/vascular dementia pleasantly confused at baseline asa, statin hld statin htn continue amlodipine, continue to hold lisinopril, bp low side DM hold metformin continue insulin sliding scale gout on allopurinol lung cancer outpatient follow up full code dvt prophylaxis - lovenox reason for continued hospitalization:placement Time Spent With Patient Time: Total time managing care of this patient today ____ minutes. Quality Stroke Does the patient have a stroke diagnosis?: No VTE Prior VTE?: No VTE Risk Level:: Medical - moderate - high VTE Device Contraindication: N/A - Device Ordered VTE Drug Contraindication: Treatment Not Indicated
[2022-07-21 11:49] LABS: Glucose, Whole Blood 129 mg/dL (60-115)
--- NOTE | 2022-07-21 11:59 | P.DS_ITS ---
DS: Providers Provider Date of Service: 07/21/22 Date of admission: 07/18/22 22:18 Primary care physician: Quique Zambrano MD Consults: 07/18/22 22:16 Consult to Orthopedics Routine Consulting Provider: Olayinka Rosa Reason for consultation: Intertrochanteric fracture of the left femur. DS: Diagnosis Discharge Diagnosis (1) Closed fracture of left hip: Status: Acute DS: Summary Hospital Course Hospital Course: from initial hpi: 87M PMH HTN, alzheimers/vascular dementia, DM, HLD, gout, lung cancer, presented with mechanical fall. patient lives with , daughter nearby, uses cane to ambulate. on radiation for recently diagnosed local lung cancer. patient appeared to have mechanical fall at home, fell on left side, was in pain, unable to stand. denies LOC, chest pain, sob. in ED found to have left trochanteric fracture. hospital course: Patient was admitted for mechanical fall complicated by left hip fracture. He underwent left hip IMN. Postoperative course was unremarkable. Before surgery had a low-grade fever leukocytosis this was likely reactive in did not recur. For patient's Alzheimer's/vascular dementia will continue on aspirin statin. For hyperlipidemia he will continue on statin. For hypertension his lisinopril has been held due to low normal blood pressures. This can be restarted as his blood pressure increases. For diabetes he was continued on insulin. For gout is continue allopurinol. For lung cancer he can follow up outpatient. Patient will be discharged to skilled nurse facility for short-term rehab. Time Spent with Patient Time attestation: Total time managing care of this patient today ____ minutes. Discharge coordination time: Greater than 30 minutes Quality: Safe Use of Opioids Does Pt have an Active Cancer Diagnosis on the Problem List?: Yes Opioid Measure Date for [facility] Report: 06/21/[address] Time for [facility] Report: 14:29 Quality: Stroke Does the patient have a stroke diagnosis?: No Physical Exam Vital Signs: Vital Signs: Last Vital Signs Temp 97.9 F 07/21/22 07:43 Pulse 94 07/21/22 08:21 Resp 16 07/21/22 07:43 BP 106/64 07/21/22 08:21 Pulse Ox 97 07/21/22 08:21 O2 Del Method 07/21/22 07:43 O2 Flow Rate 96 07/21/22 07:43 BMI result Body Mass Index 25.3 Const: General: cooperative, healthy appearing and no acute distress Resp: Effort & Inspection: normal respiratory effort and able to speak in complete sentences Cardio: Rate: regular rate Peripheral pulses: Peripheral pulses 2+ throughout GI: Palpation (GI): Soft to palpation Skin: Lesions: no lesions Rashes: no rashes Extrem: Other: Left hip dressings are c/d/i. NVI. DS: Data Data Completed and Pending Labs on day of discharge: Laboratory Results - last 24 hr 07/20/22 07/20/22 07/20/22 12:06 16:06 18:23 Hgb Hct POC Glucose 117 H 103 Urine Color Yellow Urine Appearance Cloudy Urine pH 5.5 Ur Specific [place] 1.025 Urine Protein 30 (1+) H Urine Glucose (UA) Negative Urine Ketones 40 Urine Blood Trace H Urine Nitrite Negative Ur Leukocyte Esterase Negative Urine RBC 3-5 H Urine WBC 0-5 Ur Squamous Epith Cells 0-2 Calcium Oxalate Crystal Present Other Crystals Present Urine Bacteria None Seen Hyaline Casts 0-2 07/20/22 07/21/22 07/21/22 19:50 07:16 07:42 Hgb 11.9 L Hct 34.6 L POC Glucose 94 104 Urine Color Urine Appearance Urine pH Ur Specific [place] Urine Protein Urine Glucose (UA) Urine Ketones Urine Blood Urine Nitrite Ur Leukocyte Esterase Urine RBC Urine WBC Ur Squamous Epith Cells Calcium Oxalate Crystal Other Crystals Urine Bacteria Hyaline Casts 07/21/22 11:45 Hgb Hct POC Glucose 129 H Urine Color Urine Appearance Urine pH Ur Specific [place] Urine Protein Urine Glucose (UA) Urine Ketones Urine Blood Urine Nitrite Ur Leukocyte Esterase Urine RBC Urine WBC Ur Squamous Epith Cells Calcium Oxalate Crystal Other Crystals Urine Bacteria Hyaline Casts Discharge Plan Discharge Anticipated Discharge Date/Time: 07/21/22 11:49 Patient Disposition: Xfer SNF Discharge Diagnosis: hip fracture Referrals: [facility] [Outside] - 1 Day (SHORT TERM REHAB) Quique Zambrano MD [Primary Care Provider] - 1 Week Discharge Medications: New enoxaparin 40 mg/0.4 mL Syringe 40 mg subcut Q24H Qty: 0 0RF Continued amlodipine 2.5 mg tablet 1 tab PO DAILY allopurinol 100 mg tablet 1 tab PO DAILY metformin 500 mg tablet extended release 24 hr 1 tab PO TID aspirin 81 mg Capsule 81 mg PO DAILY pravastatin 40 mg tablet 1 tab PO DAILY sertraline 25 mg tablet 1 tab PO DAILY cholecalciferol (vitamin D3) 25 mcg (1,000 unit) capsule 25 mcg PO DAILY mecobalamin (vitamin B12) 5,000 mcg tablet,chewable 5,000 mcg PO DAILY Discontinued lisinopril 20 mg tablet 1 tab PO DAILY Discharge Orders: Discharge Order (Routine); Ordered 07/21/22 Ordered By: Willy Santoyo Diet: Advance to usual diet Activity on Discharge: As tolerated Stand Alone Forms: Patient Portal Discharge page Care Plan Goals: recovery Health Concerns: hip fracture Plan of Treatment: pt, follow up ortho Assessment: see above
[2022-07-21] MEDS: Enoxaparin Sodium 40 MG/0.4 ML SYRINGE SUBCUT (12:04)
--- NOTE | 2022-07-21 13:22 | MHC.CM.PN ---
Addendum entered by Gloria Mason RN 07/21/22 14:48: PT'S RAPID COVID WAS POSITIVE, NSG/HOSPIATLIST/UNIT AWARE, CM CONTACTED PT'S DTR/HCP ABDOULAYE AT 2:40PM AT NUMBER ON FILE AND SHE IS AWARE PT WILL BE TRANSFERRED TO [facility] ON [facility] AND PROVIDED W/CM MAIN NUMBER. Original Note: pt medically cleared for d/c to [facility] at [facility], transport set up for 2pm at request of snf
[2022-07-21 14:27] LABS: COVID-19 Test Positive (Negative)
--- NOTE | 2022-07-21 14:28 | HO.POSTANES ---
Post Anesthesia Evaluation Post Anesthesia Evaluation Vital Signs: Vital Signs Temp Pulse Resp BP Pulse Ox O2 Del Method O2 Flow Rate 07/21/22 08:21 94 106/64 97 07/21/22 07:43 97.9 F 94 16 106/64 97 Nasal Cannula 96 07/21/22 04:00 97.6 F 96 16 112/56 L 98 Nasal Cannula 2 Anesthesia: General Mental Status: Awake Pain Control: Satisfactory Nausea/Vomiting: None Hydration: Adequate Anesthesia-Related Issues: No Anes. Related Issues
--- NOTE | 2022-07-21 16:24 | PC.NURSE ---
report given to NISSA Echeverria,patient transferred via bed by NISSA Echeverria and shar
[2022-07-21 16:32] VITALS: BP 118/72; PULSE 90; RESP 17; TEMP 36.6; O2SAT 98
--- NOTE | 2022-07-21 16:45 | PC.NURSE ---
Patient with no void. Bladder scanned for 484cc. Unable to void. Dr. Santoyo notified. To monitor for now. Straight cath prn. Patient rapid covid returned positive at time of discharge. Discharged cancelled. [place]wait[place] [facility] [place]
[2022-07-21 19:46] VITALS: BP 122/61; PULSE 108; RESP 18; TEMP 37.7; O2SAT 89
[2022-07-22] VITALS (7 sets, daily range): BP systolic 112–148; BP diastolic 63–83; PULSE 60–105; RESP 12–18; TEMP 36.2–37.5; O2SAT 90–96
[2022-07-22] MEDS: dexAMETHasone sod phosphate 4 MG/ML VIAL 6 MG IVPUSH (08:05)
[2022-07-22] MEDS: Aspirin Enteric Coated 81 MG TABLET.DR PO (08:06)
[2022-07-22] MEDS: Acetaminophen 325 MG TABLET 650 MG PO ×3 (08:06→21:04)
[2022-07-22] MEDS: Cyanocobalamin (Vitamin B-12) 1,000 MCG TABLET 5000 MCG PO (08:06)
[2022-07-22] MEDS: Pravastatin Sodium 40 MG TABLET PO (08:07)
[2022-07-22] MEDS: amLODIPine Besylate 2.5 MG TABLET PO (08:07)
[2022-07-22] MEDS: Cholecalciferol (Vitamin D3) 25 MCG TABLET PO (08:07)
[2022-07-22] MEDS: Sertraline HCL 25 MG TABLET PO (08:07)
[2022-07-22] MEDS: allopurinoL 100 MG TABLET PO (08:07)
--- NOTE | 2022-07-22 08:14 | PM.PNORT ---
Subjective Subjective Date of Service: 07/22/22 Interval history: POD 2 s/p left hip IM Nail. No overnight events. Patient is resting in bed. Confused at baseline. Physical Exam Vital Signs: Vital Signs: Last Vital Signs Temp 98.1 F 07/22/22 07:41 Pulse 72 07/22/22 07:41 Resp 12 07/22/22 07:41 BP 119/67 07/22/22 07:41 Pulse Ox 93 07/22/22 07:41 O2 Del Method 07/22/22 07:41 O2 Flow Rate 2 07/22/22 07:41 BMI result Body Mass Index 25.3 Const: General: cooperative, healthy appearing and no acute distress Resp: Effort & Inspection: normal respiratory effort and able to speak in complete sentences Cardio: Rate: regular rate Peripheral pulses: Peripheral pulses 2+ throughout GI: Palpation (GI): Soft to palpation Skin: Lesions: no lesions Rashes: no rashes Extrem: Other: Left hip dressings are c/d/i. NVI. Procedures Date of Service Date of Service: 07/22/22 Progress Note: A&P Assessment and plan (1) Closed fracture of left hip: Status: Acute Assessment and Plan: Continue pain mgmnt continueLovenox for dvt ppx begin PT for left hip IM Nail - WBAT Dispo planning-cleared from ortho standpoint , f/u in 2 weeks Time Spent With Patient Time: Total time managing care of this patient today ____ minutes. Quality Stroke Does the patient have a stroke diagnosis?: No VTE Prior VTE?: No VTE Risk Level:: Medical - moderate - high VTE Device Contraindication: N/A - Device Ordered VTE Drug Contraindication: Treatment Not Indicated
[2022-07-22] MEDS: Morphine Sulfate 4 MG/ML CARTRIDGE 3 MG IVPUSH ×2 (08:20→20:39)
[2022-07-22] MEDS: 0.9 % Sodium Chloride Flush 3 ML SYRINGE IVFLUSH ×2 (08:32→15:30)
--- NOTE | 2022-07-22 11:31 | MHC.CM.PN ---
CM returned a call to Patient's Daughter/Aline at [phone]; Aline confirmed that [facility] first choice and [facility] [place] [facility]. CM will follow.
[2022-07-22] MEDS: Enoxaparin Sodium 40 MG/0.4 ML SYRINGE SUBCUT (11:56)
[2022-07-22] MEDS: Insulin Lispro 100 UNIT/ML 3 ML VIAL SUBCUT ×2 (11:56→17:43)
--- NOTE | 2022-07-22 12:57 | HO.PM.IMPN ---
Subjective Subjective Date of Service: 07/22/22 Interval History: cc: fall, hip pain interval history:no new complaints, confused Cardiovascular Cardiovascular: Reports no additional cardiovascular complaints Respiratory Respiratory: Reports no additional respiratory complaints Physical Exam Vital Signs: Vital Signs: Last Vital Signs Temp 98.1 F 07/22/22 07:41 Pulse 72 07/22/22 08:29 Resp 12 07/22/22 07:41 BP 119/67 07/22/22 08:29 Pulse Ox 93 07/22/22 08:29 O2 Del Method 07/22/22 07:41 O2 Flow Rate 2 07/22/22 07:41 BMI result Body Mass Index 25.3 Const: General: cooperative, healthy appearing and no acute distress Resp: Effort & Inspection: normal respiratory effort and able to speak in complete sentences Cardio: Rate: regular rate Peripheral pulses: Peripheral pulses 2+ throughout GI: Palpation (GI): Soft to palpation Skin: Lesions: no lesions Rashes: no rashes Extrem: Other: Left hip dressings are c/d/i. NVI. Objective Data Active Medications Acetaminophen (Acetaminophen 325 Mg Tablet) 650 mg PO Q6H PRN PRN Reason: Pain, Mild (Pain Scale 1-3) Last Admin: 07/19/22 17:57 Dose: 650 mg Documented By: KATHERINE Acetaminophen (Acetaminophen 325 Mg Tablet) 650 mg PO TID [facility] Last Admin: 07/22/22 08:06 Dose: 650 mg Documented By: KACI Allopurinol (Allopurinol 100 Mg Tablet) 100 mg PO DAILY [facility] Last Admin: 07/22/22 08:07 Dose: 100 mg Documented By: KACI Amlodipine Besylate (Amlodipine Besylate 2.5 Mg Tablet) 2.5 mg PO DAILY [facility]; Protocol Last Admin: 07/22/22 08:07 Dose: 2.5 mg Documented By: KACI Aspirin (Aspirin Enteric Coated 81 Mg Tablet.) 81 mg PO DAILY [facility] Last Admin: 07/22/22 08:06 Dose: 81 mg Documented By: KACI Cyanocobalamin (Cyanocobalamin (Vitamin B-12) 1,000 Mcg Tablet) 5,000 mcg PO DAILY [facility] Last Admin: 07/22/22 08:06 Dose: 5,000 mcg Documented By: KACI Dexamethasone Sodium Phosphate (Dexamethasone Sod Phosphate 4 Mg/Ml Vial) 6 mg IVPUSH DAILY [facility] Last Admin: 07/22/22 08:05 Dose: 6 mg Documented By: KACI Dextrose (Dextrose 50 % 25 Gm/50 Ml Syringe) 25 gm IVPUSH Q15M PRN; Protocol PRN Reason: per Hypoglycemia Standing Ord. Enoxaparin Sodium (Enoxaparin Sodium 40 Mg/0.4 Ml Syringe) 40 mg SUBCUT Q24H [facility] Last Admin: 07/22/22 11:56 Dose: 40 mg Documented By: KACI Glucose (Glucose Gel 15 Gm Gel..Gram.) 15 gm PO Q15M PRN; Protocol PRN Reason: per Hypoglycemia Standing Ord. Insulin Human Lispro (Insulin Lispro 100 Unit/Ml 3 Ml Vial) 0 unit SUBCUT QIDACHS [facility]; Protocol Last Admin: 07/22/22 11:56 Dose: 2 unit Documented By: KACI Morphine Sulfate (Morphine Sulfate 4 Mg/Ml Cartridge) 3 mg IVPUSH Q4H PRN; Protocol PRN Reason: Pain, Severe (Pain Scale 7-10) Last Admin: 07/22/22 08:20 Dose: 3 mg Documented By: KACI Pharmacy Consult (Consult Rx Perform Med Rec) 1 each MISCELLANE ONCE PRN PRN Reason: Consult order Pravastatin Sodium (Pravastatin Sodium 40 Mg Tablet) 40 mg PO DAILY [facility] Last Admin: 07/22/22 08:07 Dose: 40 mg Documented By: KACI Sertraline HCl (Sertraline Hcl 25 Mg Tablet) 25 mg PO DAILY [facility] Last Admin: 07/22/22 08:07 Dose: 25 mg Documented By: KACI Sodium Chloride (0.9 % Sodium Chloride Flush 3 Ml Syringe) 3 ml IVFLUSH QSHIFT [facility] Last Admin: 07/22/22 08:32 Dose: 3 ml Documented By: KACI Vitamin D (Cholecalciferol (Vitamin D3) 25 Mcg Tablet) 25 mcg PO DAILY [facility] Last Admin: 07/22/22 08:07 Dose: 25 mcg Documented By: KACI Labs CBC & Chem 7: 07/21/22 07:16 07/20/22 06:12 Labs: Laboratory Results - last 24 hr 07/21/22 07/21/22 07/21/22 13:35 16:55 20:15 POC Glucose 87 139 H COVID-19 ([facility]) Positive A COVID-19 Clin Com See Note 07/22/22 07/22/22 07:24 11:28 POC Glucose 103 186 H COVID-19 ([facility]) COVID-19 Clin Com Assessment and Plan (1) Closed fracture of left hip: Status: Acute Plan 87M PMH HTN, alzheimers/vascular dementia, DM, HLD, gout, lung cancer presented with mechanical fall complicated by left hip fracture mechanical fall complicated by left hip fracture POD 2 plan for STR low-grade fever and leukocytosis and acute hypoxic respiratory failure due to covid 19 decadron wean o2 as tolerated alzheimers/vascular dementia pleasantly confused at baseline asa, statin hld statin htn continue amlodipine, continue to hold lisinopril, bp low side DM hold metformin continue insulin sliding scale gout on allopurinol lung cancer outpatient follow up full code dvt prophylaxis - lovenox reason for continued hospitalization:hypoxia Time Spent With Patient Time: Total time managing care of this patient today ____ minutes. Quality Stroke Does the patient have a stroke diagnosis?: No VTE Prior VTE?: No VTE Risk Level:: Medical - moderate - high VTE Device Contraindication: N/A - Device Ordered VTE Drug Contraindication: Treatment Not Indicated
[2022-07-23] MEDS: 0.9 % Sodium Chloride Flush 3 ML SYRINGE IVFLUSH ×3 (00:40→20:50)
[2022-07-23 04:00] VITALS: BP 125/70; PULSE 68; RESP 20; TEMP 35.9; O2SAT 99
--- NOTE | 2022-07-23 05:30 | PC.NURSE ---
no void,bladder scan for 0.cont to monitor.
[2022-07-23] MEDS: Cholecalciferol (Vitamin D3) 25 MCG TABLET PO (08:40)
[2022-07-23] MEDS: Pravastatin Sodium 40 MG TABLET PO (08:40)
[2022-07-23] MEDS: allopurinoL 100 MG TABLET PO (08:40)
[2022-07-23] MEDS: Sertraline HCL 25 MG TABLET PO (08:40)
[2022-07-23] MEDS: Aspirin Enteric Coated 81 MG TABLET.DR PO (08:41)
[2022-07-23] MEDS: amLODIPine Besylate 2.5 MG TABLET PO (08:41)
[2022-07-23] MEDS: Acetaminophen 325 MG TABLET 650 MG PO ×3 (08:41→20:50)
[2022-07-23] MEDS: dexAMETHasone sod phosphate 4 MG/ML VIAL 6 MG IVPUSH (08:42)
[2022-07-23] MEDS: Cyanocobalamin (Vitamin B-12) 1,000 MCG TABLET 5000 MCG PO (08:42)
[2022-07-23 08:43] VITALS: RESP 20
[2022-07-23] MEDS: Morphine Sulfate 4 MG/ML CARTRIDGE 3 MG IVPUSH ×2 (08:43→20:51)
--- NOTE | 2022-07-23 09:37 | HO.PM.IMPN ---
Subjective Subjective Date of Service: 07/23/22 Interval History: cc: fall, hip pain interval history:no new complaints, confused Cardiovascular Cardiovascular: Reports no additional cardiovascular complaints Respiratory Respiratory: Reports no additional respiratory complaints Physical Exam Vital Signs: Vital Signs: Last Vital Signs Temp 96.7 F L 07/23/22 04:00 Pulse 68 07/23/22 04:00 Resp 20 07/23/22 08:43 BP 125/70 07/23/22 04:00 Pulse Ox 99 07/23/22 04:00 O2 Del Method 07/23/22 04:00 O2 Flow Rate 2 07/23/22 04:00 BMI result Body Mass Index 25.3 Const: General: cooperative, healthy appearing and no acute distress Resp: Effort & Inspection: normal respiratory effort and able to speak in complete sentences Cardio: Rate: regular rate Peripheral pulses: Peripheral pulses 2+ throughout GI: Palpation (GI): Soft to palpation Skin: Lesions: no lesions Rashes: no rashes Extrem: Other: Left hip dressings are c/d/i. NVI. Objective Data Active Medications Acetaminophen (Acetaminophen 325 Mg Tablet) 650 mg PO Q6H PRN PRN Reason: Pain, Mild (Pain Scale 1-3) Last Admin: 07/19/22 17:57 Dose: 650 mg Documented By: KATHERINE Acetaminophen (Acetaminophen 325 Mg Tablet) 650 mg PO TID [facility] Last Admin: 07/23/22 08:41 Dose: 650 mg Documented By: SANDIE Allopurinol (Allopurinol 100 Mg Tablet) 100 mg PO DAILY [facility] Last Admin: 07/23/22 08:40 Dose: 100 mg Documented By: SANDIE Amlodipine Besylate (Amlodipine Besylate 2.5 Mg Tablet) 2.5 mg PO DAILY [facility]; Protocol Last Admin: 07/23/22 08:41 Dose: 2.5 mg Documented By: SANDIE Aspirin (Aspirin Enteric Coated 81 Mg Tablet.) 81 mg PO DAILY [facility] Last Admin: 07/23/22 08:41 Dose: 81 mg Documented By: SANDIE Cyanocobalamin (Cyanocobalamin (Vitamin B-12) 1,000 Mcg Tablet) 5,000 mcg PO DAILY [facility] Last Admin: 07/23/22 08:42 Dose: 5,000 mcg Documented By: SANDIE Dexamethasone Sodium Phosphate (Dexamethasone Sod Phosphate 4 Mg/Ml Vial) 6 mg IVPUSH DAILY [facility] Last Admin: 07/23/22 08:42 Dose: 6 mg Documented By: SANDIE Dextrose (Dextrose 50 % 25 Gm/50 Ml Syringe) 25 gm IVPUSH Q15M PRN; Protocol PRN Reason: per Hypoglycemia Standing Ord. Enoxaparin Sodium (Enoxaparin Sodium 40 Mg/0.4 Ml Syringe) 40 mg SUBCUT Q24H [facility] Last Admin: 07/22/22 11:56 Dose: 40 mg Documented By: KACI Glucose (Glucose Gel 15 Gm Gel..Gram.) 15 gm PO Q15M PRN; Protocol PRN Reason: per Hypoglycemia Standing Ord. Insulin Human Lispro (Insulin Lispro 100 Unit/Ml 3 Ml Vial) 0 unit SUBCUT QIDACHS [facility]; Protocol Last Admin: 07/23/22 08:31 Dose: Not Given Documented By: SANDIE Non-Admin Reason: No Insulin Coverage Morphine Sulfate (Morphine Sulfate 4 Mg/Ml Cartridge) 3 mg IVPUSH Q4H PRN; Protocol PRN Reason: Pain, Severe (Pain Scale 7-10) Last Admin: 07/23/22 08:43 Dose: 3 mg Documented By: SANDIE Pharmacy Consult (Consult Rx Perform Med Rec) 1 each MISCELLANE ONCE PRN PRN Reason: Consult order Pravastatin Sodium (Pravastatin Sodium 40 Mg Tablet) 40 mg PO DAILY [facility] Last Admin: 07/23/22 08:40 Dose: 40 mg Documented By: SANDIE Sertraline HCl (Sertraline Hcl 25 Mg Tablet) 25 mg PO DAILY [facility] Last Admin: 07/23/22 08:40 Dose: 25 mg Documented By: SANDIE Sodium Chloride (0.9 % Sodium Chloride Flush 3 Ml Syringe) 3 ml IVFLUSH QSHIFT [facility] Last Admin: 07/23/22 08:42 Dose: 3 ml Documented By: SANDIE Vitamin D (Cholecalciferol (Vitamin D3) 25 Mcg Tablet) 25 mcg PO DAILY [facility] Last Admin: 07/23/22 08:40 Dose: 25 mcg Documented By: SANDIE Labs CBC & Chem 7: 07/21/22 07:16 07/20/22 06:12 Labs: Laboratory Results - last 24 hr 07/22/22 07/22/2222 11:28 16:10 21:06 POC Glucose 186 H 191 H 121 H 07/23/22 07:31 POC Glucose 91 Assessment and Plan (1) Closed fracture of left hip: Status: Acute Plan 87M PMH HTN, alzheimers/vascular dementia, DM, HLD, gout, lung cancer presented with mechanical fall complicated by left hip fracture mechanical fall complicated by left hip fracture POD 3 plan for STR low-grade fever and leukocytosis and acute hypoxic respiratory failure due to covid 19 decadron wean o2 as tolerated alzheimers/vascular dementia pleasantly confused at baseline asa, statin hld statin htn continue amlodipine, continue to hold lisinopril, bp low side DM hold metformin continue insulin sliding scale gout on allopurinol lung cancer outpatient follow up full code dvt prophylaxis - lovenox reason for continued hospitalization:hypoxia Time Spent With Patient Time: Total time managing care of this patient today ____ minutes. Quality Stroke Does the patient have a stroke diagnosis?: No VTE Prior VTE?: No VTE Risk Level:: Medical - moderate - high VTE Device Contraindication: N/A - Device Ordered VTE Drug Contraindication: Treatment Not Indicated
[2022-07-23 11:02] LABS: Hematocrit 30.9 % (42.0-52.0); Hemoglobin 10.5 g/dl (14.0-18.0); Mean Corpuscular Hemoglobin 32.3 pg (27.0-33.0); Mean Corpuscular Volume 95.1 fL (80.0-98.0); Platelet Count 203 X10*3/uL (160-400); Red Blood Count 3.25 X10*6/uL (4.60-5.80); Red Cell Distribution Width 12.6 % (11.0-16.0); White Blood Count 9.1 X10*3/uL (4.8-10.8)
[2022-07-23 11:44] LABS: Anion Gap 11 (12-20); Blood Urea Nitrogen 41 mg/dL (9-16); Calcium 9.1 mg/dL (8.4-10.2); Carbon Dioxide 25 mmol/L (22-29); Chloride 108 mmol/L (96-108); Creatinine Clr Calc Pharmacy 63.8; Estimated Glomerular Filt Rate > 60; Glucose Fasting 127 mg/dL (60-99); Potassium 4.1 mmol/L (3.3-5.1); Sodium 140 mmol/L (135-145)
[2022-07-23 12:02] VITALS: BP 125/60; PULSE 85; RESP 18; TEMP 36.6; O2SAT 96
[2022-07-23] MEDS: Enoxaparin Sodium 40 MG/0.4 ML SYRINGE SUBCUT (13:35)
[2022-07-23] MEDS: Insulin Lispro 100 UNIT/ML 3 ML VIAL SUBCUT (13:36)
[2022-07-23 15:55] VITALS: BP 153/76; PULSE 105; RESP 18; TEMP 36.7; O2SAT 93
[2022-07-23 19:06] VITALS: BP 136/69; PULSE 109; RESP 18; TEMP 36.4; O2SAT 91
[2022-07-23 23:34] VITALS: BP 148/82; PULSE 115; RESP 16; TEMP 36.7; O2SAT 97
[2022-07-24] MEDS: 0.9 % Sodium Chloride Flush 3 ML SYRINGE IVFLUSH ×3 (02:14→16:51)
[2022-07-24 07:48] VITALS: BP 138/57; PULSE 43; RESP 20; TEMP 36.3; O2SAT 93
[2022-07-24 09:25] VITALS: PULSE 87; RESP 20
[2022-07-24] MEDS: Acetaminophen 325 MG TABLET 650 MG PO ×2 (09:30→16:51)
[2022-07-24] MEDS: Aspirin Enteric Coated 81 MG TABLET.DR PO (09:30)
[2022-07-24] MEDS: Cyanocobalamin (Vitamin B-12) 1,000 MCG TABLET 5000 MCG PO (09:30)
[2022-07-24] MEDS: Cholecalciferol (Vitamin D3) 25 MCG TABLET PO (09:31)
[2022-07-24] MEDS: amLODIPine Besylate 2.5 MG TABLET PO (09:31)
[2022-07-24] MEDS: Sertraline HCL 25 MG TABLET PO (09:31)
[2022-07-24] MEDS: allopurinoL 100 MG TABLET PO (09:31)
[2022-07-24] MEDS: Pravastatin Sodium 40 MG TABLET PO (09:32)
--- NOTE | 2022-07-24 09:43 | HO.PM.IMPN ---
Subjective Subjective Date of Service: 07/24/22 Interval History: cc: fall, hip pain interval history:no new complaints, confused Cardiovascular Cardiovascular: Reports no additional cardiovascular complaints Respiratory Respiratory: Reports no additional respiratory complaints Physical Exam Vital Signs: Vital Signs: Last Vital Signs Temp 97.3 F 07/24/22 07:48 Pulse 43 L 07/24/22 07:48 Resp 20 07/24/22 07:48 BP 138/57 L 07/24/22 07:48 Pulse Ox 93 07/24/22 07:48 O2 Del Method 07/24/22 07:48 O2 Flow Rate 2 07/23/22 04:00 BMI result Body Mass Index 25.3 Const: General: cooperative, healthy appearing and no acute distress Resp: Effort & Inspection: normal respiratory effort and able to speak in complete sentences Cardio: Rate: regular rate Peripheral pulses: Peripheral pulses 2+ throughout GI: Palpation (GI): Soft to palpation Skin: Lesions: no lesions Rashes: no rashes Extrem: Other: Left hip dressings are c/d/i. NVI. Objective Data Active Medications Acetaminophen (Acetaminophen 325 Mg Tablet) 650 mg PO Q6H PRN PRN Reason: Pain, Mild (Pain Scale 1-3) Last Admin: 07/19/22 17:57 Dose: 650 mg Documented By: KATHERINE Acetaminophen (Acetaminophen 325 Mg Tablet) 650 mg PO TID [facility] Last Admin: 07/23/22 20:50 Dose: 650 mg Documented By: NEIDA Allopurinol (Allopurinol 100 Mg Tablet) 100 mg PO DAILY [facility] Last Admin: 07/23/22 08:40 Dose: 100 mg Documented By: SANDIE Amlodipine Besylate (Amlodipine Besylate 2.5 Mg Tablet) 2.5 mg PO DAILY [facility]; Protocol Last Admin: 07/23/22 08:41 Dose: 2.5 mg Documented By: SANDIE Aspirin (Aspirin Enteric Coated 81 Mg Tablet.) 81 mg PO DAILY [facility] Last Admin: 07/23/22 08:41 Dose: 81 mg Documented By: SANDIE Cyanocobalamin (Cyanocobalamin (Vitamin B-12) 1,000 Mcg Tablet) 5,000 mcg PO DAILY [facility] Last Admin: 07/23/22 08:42 Dose: 5,000 mcg Documented By: SANDIE Dextrose (Dextrose 50 % 25 Gm/50 Ml Syringe) 25 gm IVPUSH Q15M PRN; Protocol PRN Reason: per Hypoglycemia Standing Ord. Enoxaparin Sodium (Enoxaparin Sodium 40 Mg/0.4 Ml Syringe) 40 mg SUBCUT Q24H [facility] Last Admin: 07/23/22 13:35 Dose: 40 mg Documented By: SANDIE Glucose (Glucose Gel 15 Gm Gel..Gram.) 15 gm PO Q15M PRN; Protocol PRN Reason: per Hypoglycemia Standing Ord. Insulin Human Lispro (Insulin Lispro 100 Unit/Ml 3 Ml Vial) 0 unit SUBCUT QIDACHS [facility]; Protocol Last Admin: 07/24/22 08:27 Dose: Not Given Documented By: DEJON Non-Admin Reason: No Insulin Coverage Morphine Sulfate (Morphine Sulfate 4 Mg/Ml Cartridge) 3 mg IVPUSH Q4H PRN; Protocol PRN Reason: Pain, Severe (Pain Scale 7-10) Last Admin: 07/23/22 20:51 Dose: 3 mg Documented By: NEIDA Pharmacy Consult (Consult Rx Perform Med Rec) 1 each MISCELLANE ONCE PRN PRN Reason: Consult order Pravastatin Sodium (Pravastatin Sodium 40 Mg Tablet) 40 mg PO DAILY [facility] Last Admin: 07/23/22 08:40 Dose: 40 mg Documented By: SANDIE Sertraline HCl (Sertraline Hcl 25 Mg Tablet) 25 mg PO DAILY [facility] Last Admin: 07/23/22 08:40 Dose: 25 mg Documented By: SANDIE Sodium Chloride (0.9 % Sodium Chloride Flush 3 Ml Syringe) [address] [facility] Last Admin: 07/24/22 02:14 Dose: 3 ml Documented By: NEIDA Vitamin D (Cholecalciferol (Vitamin D3) 25 Mcg Tablet) 25 mcg PO DAILY [facility] Last Admin: 07/23/22 08:40 Dose: 25 mcg Documented By: SANDIE Labs CBC & Chem 7: 07/23/22 10:43 07/23/22 10:43 Labs: Laboratory Results - last 24 hr 07/23/22 07/23/22 07/23/22 10:43 10:43 12:07 MCV 95.1 MCH 32.3 MCHC 34.0 RDW 12.6 Plt Count 203 MPV 10.0 Absolute Nucleated RBC 0.000 Nucleated RBC % (auto) 0.0 Anion Gap 11 L Estim Creat Clear Calc 63.8 Estimated GFR > 60 POC Glucose 154 H Fasting Glucose 127 H Calcium 9.1 D 07/23/22 07/24/22 16:38 08:17 MCV MCH MCHC RDW Plt Count MPV Absolute Nucleated RBC Nucleated RBC % (auto) Anion Gap Estim Creat Clear Calc Estimated GFR POC Glucose 149 H 97 Fasting Glucose Calcium Assessment and Plan (1) Closed fracture of left hip: Status: Acute Plan 87M PMH HTN, alzheimers/vascular dementia, DM, HLD, gout, lung cancer presented with mechanical fall complicated by left hip fracture mechanical fall complicated by left hip fracture POD 4 plan for STR low-grade fever and leukocytosis and acute hypoxic respiratory failure due to covid 19 now off o2, will dc decadron alzheimers/vascular dementia pleasantly confused at baseline asa, statin hld statin htn continue amlodipine, continue to hold lisinopril, bp low normal DM hold metformin continue insulin sliding scale gout on allopurinol lung cancer outpatient follow up full code dvt prophylaxis - lovenox reason for continued hospitalization: awaiting str placement Time Spent With Patient Time: Total time managing care of this patient today ____ minutes. Quality Stroke Does the patient have a stroke diagnosis?: No VTE Prior VTE?: No VTE Risk Level:: Medical - moderate - high VTE Device Contraindication: N/A - Device Ordered VTE Drug Contraindication: Treatment Not Indicated
[2022-07-24] MEDS: Enoxaparin Sodium 40 MG/0.4 ML SYRINGE SUBCUT (12:34)
[2022-07-24 15:28] VITALS: BP 109/56; PULSE 53; RESP 18; TEMP 36.6; O2SAT 96
[2022-07-25] MEDS: Morphine Sulfate 4 MG/ML CARTRIDGE 3 MG IVPUSH (00:38)
[2022-07-25] MEDS: 0.9 % Sodium Chloride Flush 3 ML SYRINGE IVFLUSH ×4 (00:39→21:36)
[2022-07-25 03:34] VITALS: BP 114/60; PULSE 76; RESP 68; TEMP 36.8; O2SAT 94
[2022-07-25 07:15] VITALS: BP 116/67; PULSE 67; RESP 17; TEMP 36.6; O2SAT 97
--- NOTE | 2022-07-25 09:29 | HO.PM.IMPN ---
Subjective Subjective Date of Service: 07/25/22 Interval History: cc: fall, hip pain interval history:no new complaints, confused Cardiovascular Cardiovascular: Reports no additional cardiovascular complaints Respiratory Respiratory: Reports no additional respiratory complaints Physical Exam Vital Signs: Vital Signs: Last Vital Signs Temp 97.9 F 07/25/22 07:15 Pulse 67 07/25/22 07:15 Resp 17 07/25/22 07:15 BP 116/67 07/25/22 07:15 Pulse Ox 97 07/25/22 07:15 O2 Del Method 07/25/22 07:15 O2 Flow Rate 2 07/23/22 04:00 BMI result Body Mass Index 25.3 Const: General: cooperative, healthy appearing and no acute distress Resp: Effort & Inspection: normal respiratory effort and able to speak in complete sentences Cardio: Rate: regular rate Peripheral pulses: Peripheral pulses 2+ throughout GI: Palpation (GI): Soft to palpation Skin: Lesions: no lesions Rashes: no rashes Extrem: Other: Left hip dressings are c/d/i. NVI. Objective Data Active Medications Acetaminophen (Acetaminophen 325 Mg Tablet) 650 mg PO Q6H PRN PRN Reason: Pain, Mild (Pain Scale 1-3) Last Admin: 07/19/22 17:57 Dose: 650 mg Documented By: KATHERINE Acetaminophen (Acetaminophen 325 Mg Tablet) 650 mg PO TID [facility] Last Admin: 07/24/22 21:01 Dose: Not Given Documented By: ALEXUS Non-Admin Reason: Patient Refused Allopurinol (Allopurinol 100 Mg Tablet) 100 mg PO DAILY [facility] Last Admin: 07/24/22 09:31 Dose: 100 mg Documented By: DEJON Amlodipine Besylate (Amlodipine Besylate 2.5 Mg Tablet) 2.5 mg PO DAILY [facility]; Protocol Last Admin: 07/24/22 09:31 Dose: 2.5 mg Documented By: DEJON Aspirin (Aspirin Enteric Coated 81 Mg Tablet.) 81 mg PO DAILY [facility] Last Admin: 07/24/22 09:30 Dose: 81 mg Documented By: DEJON Cyanocobalamin (Cyanocobalamin (Vitamin B-12) 1,000 Mcg Tablet) 5,000 mcg PO DAILY [facility] Last Admin: 07/24/22 09:30 Dose: 5,000 mcg Documented By: DEJON Dextrose (Dextrose 50 % 25 Gm/50 Ml Syringe) 25 gm IVPUSH Q15M PRN; Protocol PRN Reason: per Hypoglycemia Standing Ord. Enoxaparin Sodium (Enoxaparin Sodium 40 Mg/0.4 Ml Syringe) 40 mg SUBCUT Q24H [facility] Last Admin: 07/24/22 12:34 Dose: 40 mg Documented By: DEJON Glucose (Glucose Gel 15 Gm Gel..Gram.) 15 gm PO Q15M PRN; Protocol PRN Reason: per Hypoglycemia Standing Ord. Insulin Human Lispro (Insulin Lispro 100 Unit/Ml 3 Ml Vial) 0 unit SUBCUT QIDACHS [facility]; Protocol Last Admin: 07/25/22 07:34 Dose: Not Given Documented By: KEKE Non-Admin Reason: No Insulin Coverage Morphine Sulfate (Morphine Sulfate 4 Mg/Ml Cartridge) 3 mg IVPUSH Q4H PRN; Protocol PRN Reason: Pain, Severe (Pain Scale 7-10) Last Admin: 07/25/22 00:38 Dose: 3 mg Documented By: CHERYLE Pharmacy Consult (Consult Rx Perform Med Rec) 1 each MISCELLANE ONCE PRN PRN Reason: Consult order Pravastatin Sodium (Pravastatin Sodium 40 Mg Tablet) 40 mg PO DAILY [facility] Last Admin: 07/24/22 09:32 Dose: 40 mg Documented By: DEJON Sertraline HCl (Sertraline Hcl 25 Mg Tablet) 25 mg PO DAILY [facility] Last Admin: 07/24/22 09:31 Dose: 25 mg Documented By: DEJON Sodium Chloride (0.9 % Sodium Chloride Flush 3 Ml Syringe) 3 ml IVFLUSH QSHIFT [facility] Last Admin: 07/25/22 00:39 Dose: 3 ml Documented By: CHERYLE Vitamin D (Cholecalciferol (Vitamin D3) 25 Mcg Tablet) 25 mcg PO DAILY [facility] Last Admin: 07/24/22 09:31 Dose: 25 mcg Documented By: DEJON Labs CBC & Chem 7: 07/23/22 10:43 07/23/22 10:43 Labs: Laboratory Results - last 24 hr 07/24/22 07/24/22 07/24/22 11:34 16:00 19:43 POC Glucose 112 142 H 109 07/25/22 07:12 POC Glucose 81 Assessment and Plan (1) Closed fracture of left hip: Status: Acute Plan 87M PMH HTN, alzheimers/vascular dementia, DM, HLD, gout, lung cancer presented with mechanical fall complicated by left hip fracture mechanical fall complicated by left hip fracture POD 5 plan for STR low-grade fever and leukocytosis and acute hypoxic respiratory failure due to covid 19 now off o2, symptomatic management alzheimers/vascular dementia with hospital delerium pleasantly confused at baseline asa, statin low dose atypical antipsychotics if needed for patient safety hld statin htn continue amlodipine, continue to hold lisinopril, bp low normal DM hold metformin continue insulin sliding scale gout on allopurinol lung cancer outpatient follow up full code dvt prophylaxis - lovenox reason for continued hospitalization: awaiting str placement Time Spent With Patient Time: Total time managing care of this patient today ____ minutes. Quality Stroke Does the patient have a stroke diagnosis?: No VTE Prior VTE?: No VTE Risk Level:: Medical - moderate - high VTE Device Contraindication: N/A - Device Ordered VTE Drug Contraindication: Treatment Not Indicated
[2022-07-25] MEDS: Cyanocobalamin (Vitamin B-12) 1,000 MCG TABLET 5000 MCG PO (10:03)
[2022-07-25] MEDS: Acetaminophen 325 MG TABLET 650 MG PO ×2 (10:03→12:57)
[2022-07-25] MEDS: Aspirin Enteric Coated 81 MG TABLET.DR PO (10:03)
[2022-07-25] MEDS: Cholecalciferol (Vitamin D3) 25 MCG TABLET PO (10:03)
[2022-07-25] MEDS: Pravastatin Sodium 40 MG TABLET PO (10:04)
[2022-07-25] MEDS: allopurinoL 100 MG TABLET PO (10:04)
[2022-07-25] MEDS: Sertraline HCL 25 MG TABLET PO (10:04)
[2022-07-25] MEDS: amLODIPine Besylate 2.5 MG TABLET PO (10:04)
[2022-07-25 11:10] VITALS: BP 96/58; PULSE 82; RESP 17; TEMP 36.7; O2SAT 98
[2022-07-25] MEDS: Enoxaparin Sodium 40 MG/0.4 ML SYRINGE SUBCUT (12:57)
[2022-07-25 15:12] VITALS: BP 116/66; PULSE 81; RESP 17; TEMP 36.8; O2SAT 92
[2022-07-25 19:50] VITALS: BP 136/60; PULSE 81; RESP 17; TEMP 36.2; O2SAT 98
[2022-07-25 23:13] VITALS: BP 116/58; PULSE 74; RESP 18; TEMP 36.3; O2SAT 93
[2022-07-26 04:00] VITALS: BP 122/67; PULSE 72; RESP 20; TEMP 36.6; O2SAT 98
[2022-07-26 06:53] LABS: Hematocrit 32.3 % (42.0-52.0); Hemoglobin 11.1 g/dl (14.0-18.0); Mean Corpuscular HGB Conc 34.4 g/dl (31.0-36.0); Mean Corpuscular Volume 96.1 fL (80.0-98.0); Mean Platelet Volume 10.2 fL (9.4-12.4); Platelet Count 257 X10*3/uL (160-400); Red Blood Count 3.36 X10*6/uL (4.60-5.80); Red Cell Distribution Width 12.7 % (11.0-16.0); White Blood Count 5.5 X10*3/uL (4.8-10.8)
[2022-07-26 07:26] VITALS: BP 123/55; PULSE 66; RESP 22; TEMP 36.2; O2SAT 94
[2022-07-26 07:30] LABS: Anion Gap 12 (12-20); Blood Urea Nitrogen 35 mg/dL (9-16); Calcium 9.1 mg/dL (8.4-10.2); Carbon Dioxide 25 mmol/L (22-29); Chloride 106 mmol/L (96-108); Creatinine Clr Calc Pharmacy 60.5; Estimated Glomerular Filt Rate > 60; Glucose Fasting 96 mg/dL (60-99); Potassium 4.2 mmol/L (3.3-5.1); Sodium 139 mmol/L (135-145)
[2022-07-26 07:46] LABS: Glucose, Whole Blood 101 mg/dL (60-115)
--- NOTE | 2022-07-26 09:22 | P.PNIM_ITS ---
Subjective Subjective Date of Service: 07/26/22 Interval History: cc: fall, hip pain interval history:no new complaints, confused Cardiovascular Cardiovascular: Reports no additional cardiovascular complaints Respiratory Respiratory: Reports no additional respiratory complaints Physical Exam Vital Signs: Vital Signs: Last Vital Signs Temp 97.1 F 07/26/22 07:26 Pulse 66 07/26/22 07:26 Resp 22 H 07/26/22 07:26 BP 123/55 L 07/26/22 07:26 Pulse Ox 94 07/26/22 07:26 O2 Del Method 07/26/22 07:26 O2 Flow Rate 2 07/23/22 04:00 BMI result Body Mass Index 25.3 Const: General: cooperative, healthy appearing and no acute distress Resp: Effort & Inspection: normal respiratory effort and able to speak in complete sentences Cardio: Rate: regular rate Peripheral pulses: Peripheral pulses 2+ throughout GI: Palpation (GI): Soft to palpation Skin: Lesions: no lesions Rashes: no rashes Extrem: Other: Left hip dressings are c/d/i. NVI. Objective Data Active Medications Acetaminophen (Acetaminophen 325 Mg Tablet) 650 mg PO Q6H PRN PRN Reason: Pain, Mild (Pain Scale 1-3) Last Admin: 07/19/22 17:57 Dose: 650 mg Documented By: KATHERINE Acetaminophen (Acetaminophen 325 Mg Tablet) 650 mg PO TID [facility] Last Admin: 07/25/22 20:24 Dose: Not Given Documented By: EDGAR Non-Admin Reason: Patient Refused Allopurinol (Allopurinol 100 Mg Tablet) 100 mg PO DAILY [facility] Last Admin: 07/25/22 10:04 Dose: 100 mg Documented By: KEKE Amlodipine Besylate (Amlodipine Besylate 2.5 Mg Tablet) 2.5 mg PO DAILY [facility]; Protocol Last Admin: 07/25/22 10:04 Dose: 2.5 mg Documented By: KEKE Aspirin (Aspirin Enteric Coated 81 Mg Tablet.) 81 mg PO DAILY [facility] Last Admin: 07/25/22 10:03 Dose: 81 mg Documented By: KEKE Cyanocobalamin (Cyanocobalamin (Vitamin B-12) 1,000 Mcg Tablet) 5,000 mcg PO DAILY [facility] Last Admin: 07/25/22 10:03 Dose: 5,000 mcg Documented By: KEKE Dextrose (Dextrose 50 % 25 Gm/50 Ml Syringe) 25 gm IVPUSH Q15M PRN; Protocol PRN Reason: per Hypoglycemia Standing Ord. Enoxaparin Sodium (Enoxaparin Sodium 40 Mg/0.4 Ml Syringe) 40 mg SUBCUT Q24H [facility] Last Admin: 07/25/22 12:57 Dose: 40 mg Documented By: KEKE Glucose (Glucose Gel 15 Gm Gel..Gram.) 15 gm PO Q15M PRN; Protocol PRN Reason: per Hypoglycemia Standing Ord. Insulin Human Lispro (Insulin Lispro 100 Unit/Ml 3 Ml Vial) 0 unit SUBCUT QIDACHS [facility]; Protocol Last Admin: 07/26/22 08:21 Dose: Not Given Documented By: KEKE Non-Admin Reason: No Insulin Coverage Pharmacy Consult (Consult Rx Perform Med Rec) 1 each MISCELLANE ONCE PRN PRN Reason: Consult order Pravastatin Sodium (Pravastatin Sodium 40 Mg Tablet) 40 mg PO DAILY [facility] Last Admin: 07/25/22 10:04 Dose: 40 mg Documented By: KEKE Sertraline HCl (Sertraline Hcl 25 Mg Tablet) 25 mg PO DAILY [facility] Last Admin: 07/25/22 10:04 Dose: 25 mg Documented By: KEKE Sodium Chloride (0.9 % Sodium Chloride Flush 3 Ml Syringe) 3 ml IVFLUSH QSHIFT [facility] Last Admin: 07/25/22 21:36 Dose: 3 ml Documented By: JAMELM Vitamin D (Cholecalciferol (Vitamin D3) 25 Mcg Tablet) 25 mcg PO DAILY [facility] Last Admin: 07/25/22 10:03 Dose: 25 mcg Documented By: KEKE Labs CBC & Chem 7: 07/26/22 06:21 07/26/22 06:21 Labs: Laboratory Results - last 24 hr 07/25/22 07/25/22 07/25/22 11:05 15:16 20:07 MCV MCH MCHC RDW Plt Count MPV Absolute Nucleated RBC Nucleated RBC % (auto) Anion Gap Estim Creat Clear Calc Estimated GFR POC Glucose 106 96 109 Fasting Glucose Calcium 07/26/22 07/26/22 07/26/22 06:21 06:21 07:31 MCV 96.1 MCH 33.0 MCHC 34.4 RDW 12.7 Plt Count 257 D MPV 10.2 Absolute Nucleated RBC 0.000 Nucleated RBC % (auto) 0.0 Anion Gap 12 Estim Creat Clear Calc 60.5 Estimated GFR > 60 POC Glucose 101 Fasting Glucose 96 Calcium 9.1 Assessment and Plan (1) Closed fracture of left hip: Status: Acute Plan 87M PMH HTN, alzheimers/vascular dementia, DM, HLD, gout, lung cancer presented with mechanical fall complicated by left hip fracture mechanical fall complicated by left hip fracture POD 6 plan for STR low-grade fever and leukocytosis and acute hypoxic respiratory failure due to covid 19 now off o2, symptomatic management alzheimers/vascular dementia with hospital delerium pleasantly confused at baseline asa, statin low dose atypical antipsychotics if needed for patient safety hld statin htn continue amlodipine, continue to hold lisinopril, bp low normal DM hold metformin continue insulin sliding scale gout on allopurinol lung cancer outpatient follow up full code dvt prophylaxis - lovenox reason for continued hospitalization: awaiting str placement Time Spent With Patient Time: Total time managing care of this patient today ____ minutes. Quality Stroke Does the patient have a stroke diagnosis?: No VTE Prior VTE?: No VTE Risk Level:: Medical - moderate - high VTE Device Contraindication: N/A - Device Ordered VTE Drug Contraindication: Treatment Not Indicated
[2022-07-26] MEDS: Sertraline HCL 25 MG TABLET PO (10:17)
[2022-07-26] MEDS: Cyanocobalamin (Vitamin B-12) 1,000 MCG TABLET 5000 MCG PO (10:17)
[2022-07-26] MEDS: Acetaminophen 325 MG TABLET 650 MG PO ×3 (10:17→20:13)
[2022-07-26] MEDS: Aspirin Enteric Coated 81 MG TABLET.DR PO (10:17)
[2022-07-26] MEDS: Pravastatin Sodium 40 MG TABLET PO (10:17)
[2022-07-26] MEDS: Enoxaparin Sodium 40 MG/0.4 ML SYRINGE SUBCUT (10:18)
[2022-07-26] MEDS: 0.9 % Sodium Chloride Flush 3 ML SYRINGE IVFLUSH ×3 (10:18→20:14)
[2022-07-26] MEDS: Cholecalciferol (Vitamin D3) 25 MCG TABLET PO (10:18)
[2022-07-26] MEDS: amLODIPine Besylate 2.5 MG TABLET PO (10:18)
[2022-07-26] MEDS: allopurinoL 100 MG TABLET PO (10:18)
[2022-07-26 11:03] VITALS: PULSE 66; O2SAT 94
[2022-07-26 11:17] LABS: Glucose, Whole Blood 181 mg/dL (60-115)
[2022-07-26] MEDS: Insulin Lispro 100 UNIT/ML 3 ML VIAL SUBCUT (11:39)
--- NOTE | 2022-07-26 14:18 | MHC.CM.PN ---
CM returned a call to Patient's Daughter/Lily @ [phone] and updated her on dc planning progress. CM will continue to follow.
[2022-07-26 15:26] VITALS: BP 109/52; PULSE 103; RESP 19; TEMP 36.8; O2SAT 96
[2022-07-26 15:29] LABS: Glucose, Whole Blood 126 mg/dL (60-115)
--- NOTE | 2022-07-26 15:35 | MHC.CM.PN ---
Per MD, Patient is medically cleared for dc. [facility] can take Patient if he tests Covid (-) today, per MD, wouldn't do today,likely to still be positive. [facility] will consider Patient Covid recovered on 08/02/2022. [facility] will require a (-) rapid covid result on day 11 (08/02/2022). RADHA spoke with Evelyn/ Lily @ [phone] again and relayed this information to her and confirmed with her that has confirmed with this CM that Patient is indeed medically cleared for dc. RADHA will follow.
[2022-07-26 18:55] LABS: Glucose, Whole Blood 110 mg/dL (60-115)
[2022-07-26 19:43] VITALS: BP 137/85; PULSE 84; RESP 18; TEMP 37.3; O2SAT 97
[2022-07-26] MEDS: Haloperidol Lactate 5 MG/ML VIAL 2.5 MG IVPUSH (20:13)
[2022-07-27 03:35] VITALS: BP 130/67; PULSE 64; RESP 20; TEMP 37.1; O2SAT 94
[2022-07-27 07:16] VITALS: BP 134/74; PULSE 85; RESP 20; TEMP 36.4; O2SAT 93
[2022-07-27 07:28] LABS: Glucose, Whole Blood 107 mg/dL (60-115)
[2022-07-27] MEDS: Pravastatin Sodium 40 MG TABLET PO (09:21)
[2022-07-27] MEDS: Cyanocobalamin (Vitamin B-12) 1,000 MCG TABLET 5000 MCG PO (09:21)
[2022-07-27] MEDS: Aspirin Enteric Coated 81 MG TABLET.DR PO (09:21)
[2022-07-27] MEDS: allopurinoL 100 MG TABLET PO (09:21)
[2022-07-27] MEDS: Sertraline HCL 25 MG TABLET PO (09:21)
[2022-07-27] MEDS: amLODIPine Besylate 2.5 MG TABLET PO (09:22)
[2022-07-27] MEDS: Acetaminophen 325 MG TABLET 650 MG PO ×2 (09:22→14:30)
[2022-07-27] MEDS: 0.9 % Sodium Chloride Flush 3 ML SYRINGE IVFLUSH ×3 (09:22→22:53)
[2022-07-27] MEDS: Cholecalciferol (Vitamin D3) 25 MCG TABLET PO (09:22)
[2022-07-27 11:28] LABS: Glucose, Whole Blood 109 mg/dL (60-115)
[2022-07-27] MEDS: Enoxaparin Sodium 40 MG/0.4 ML SYRINGE SUBCUT (12:43)
--- NOTE | 2022-07-27 12:43 | HO.PM.IMPN ---
Subjective Subjective Date of Service: 07/27/22 Interval History: cc: fall, hip pain interval history:no new complaints, very confused Review of Systems confused Physical Exam Vital Signs: Vital Signs: Last Vital Signs Temp 97.5 F 07/27/22 07:16 Pulse 85 07/27/22 07:16 Resp 20 07/27/22 07:16 BP 134/74 07/27/22 07:16 Pulse Ox 93 07/27/22 07:16 O2 Del Method 07/27/22 07:16 O2 Flow Rate 2 07/23/22 04:00 BMI result Body Mass Index 25.3 Const: Other: Frail, very confuse CVRRR S1S2 Lungs rhonchi Neuro: confused Objective Data Active Medications Acetaminophen (Acetaminophen 325 Mg Tablet) 650 mg PO Q6H PRN PRN Reason: Pain, Mild (Pain Scale 1-3) Last Admin: 07/19/22 17:57 Dose: 650 mg Documented By: KATHERINE Acetaminophen (Acetaminophen 325 Mg Tablet) 650 mg PO TID [facility] Last Admin: 07/27/22 09:22 Dose: 650 mg Documented By: DEJON Allopurinol (Allopurinol 100 Mg Tablet) 100 mg PO DAILY [facility] Last Admin: 07/27/22 09:21 Dose: 100 mg Documented By: DEJON Amlodipine Besylate (Amlodipine Besylate 2.5 Mg Tablet) 2.5 mg PO DAILY [facility]; Protocol Last Admin: 07/27/22 09:22 Dose: 2.5 mg Documented By: DEJON Aspirin (Aspirin Enteric Coated 81 Mg Tablet.) 81 mg PO DAILY [facility] Last Admin: 07/27/22 09:21 Dose: 81 mg Documented By: DEJON Cyanocobalamin (Cyanocobalamin (Vitamin B-12) 1,000 Mcg Tablet) 5,000 mcg PO DAILY [facility] Last Admin: 07/27/22 09:21 Dose: 5,000 mcg Documented By: DEJON Dextrose (Dextrose 50 % 25 Gm/50 Ml Syringe) 25 gm IVPUSH Q15M PRN; Protocol PRN Reason: per Hypoglycemia Standing Ord. Enoxaparin Sodium (Enoxaparin Sodium 40 Mg/0.4 Ml Syringe) 40 mg SUBCUT Q24H [facility] Last Admin: 07/26/22 10:18 Dose: 40 mg Documented By: KEKE Glucose (Glucose Gel 15 Gm Gel..Gram.) 15 gm PO Q15M PRN; Protocol PRN Reason: per Hypoglycemia Standing Ord. Insulin Human Lispro (Insulin Lispro 100 Unit/Ml 3 Ml Vial) 0 unit SUBCUT QIDACHS [facility]; Protocol Last Admin: 07/27/22 12:06 Dose: Not Given Documented By: DEJON Non-Admin Reason: No Insulin Coverage Pharmacy Consult (Consult Rx Perform Med Rec) 1 each MISCELLANE ONCE PRN PRN Reason: Consult order Pravastatin Sodium (Pravastatin Sodium 40 Mg Tablet) 40 mg PO DAILY [facility] Last Admin: 07/27/22 09:21 Dose: 40 mg Documented By: DEJON Sertraline HCl (Sertraline Hcl 25 Mg Tablet) 25 mg PO DAILY [facility] Last Admin: 07/27/22 09:21 Dose: 25 mg Documented By: DEJON Sodium Chloride (0.9 % Sodium Chloride Flush 3 Ml Syringe) 3 ml IVFLUSH QSHIFT [facility] Last Admin: 07/27/22 09:22 Dose: 3 ml Documented By: DEJON Vitamin D (Cholecalciferol (Vitamin D3) 25 Mcg Tablet) 25 mcg PO DAILY [facility] Last Admin: 07/27/22 09:22 Dose: 25 mcg Documented By: DEJON Labs CBC & Chem 7: 07/26/22 06:21 07/26/22 06:21 Labs: Laboratory Results - last 24 hr 07/26/22 07/26/22 07/27/22 15:25 18:51 07:20 POC Glucose 126 H 110 107 07/27/22 11:23 POC Glucose 109 Assessment and Plan (1) Closed fracture of left hip: Status: Acute Plan 87M PMH HTN, alzheimers/vascular dementia, DM, HLD, gout, lung cancer presented with mechanical fall complicated by left hip fracture mechanical fall complicated by left hip fracture POD 7 plan for STR, low-grade fever and leukocytosis and acute hypoxic respiratory failure due to covid 19 now off o2, symptomatic management alzheimers/vascular dementia with hospital delerium pleasantly confused at baseline, but has superimposed multifaceted delirium low dose atypical antipsychotics if needed for patient safety hld statin htn continue amlodipine, continue to hold lisinopril, bp low normal DM hold metformin continue insulin sliding scale gout on allopurinol lung cancer outpatient follow up full code dvt prophylaxis - lovenox reason for continued hospitalization: awaiting str placement Time Spent With Patient Time: Total time managing care of this patient today ____ minutes. Quality Stroke Does the patient have a stroke diagnosis?: No VTE Prior VTE?: No VTE Risk Level:: Medical - moderate - high VTE Device Contraindication: N/A - Device Ordered VTE Drug Contraindication: Treatment Not Indicated
[2022-07-27 15:47] VITALS: BP 104/63; PULSE 77; RESP 18; TEMP 36.7; O2SAT 96
[2022-07-27 16:16] LABS: Glucose, Whole Blood 111 mg/dL (60-115)
[2022-07-27 16:41] LABS: Glucose, Whole Blood 117 mg/dL (60-115)
--- NOTE | 2022-07-27 17:08 | PC.NURSE ---
report received from samantha AZAR. mainframe systems administrator per SEP. 1:1 sitter at bedside, camera in room. Bladder scan q shift with 633mL, straight cath with 650 out. Bladder scan preformed again around 1700 for 466. MD consulted d/t frequent straight cath for urinary retention. MD states continue to straight cath for now and if the problem persists then urology .
[2022-07-27 19:00] VITALS: BP 105/64; PULSE 65; RESP 20; TEMP 36.1; O2SAT 98
[2022-07-27 20:17] LABS: Glucose, Whole Blood 51 mg/dL (60-115)
[2022-07-27] MEDS: Dextrose 50 % 25 GM/50 ML SYRINGE IVPUSH (20:53)
[2022-07-27 21:45] LABS: Glucose, Whole Blood 186 mg/dL (60-115)
[2022-07-28 04:00] VITALS: BP 105/64; PULSE 66; RESP 14; TEMP 36.8; O2SAT 95
[2022-07-28 07:34] LABS: Glucose, Whole Blood 93 mg/dL (60-115)
[2022-07-28 07:43] VITALS: BP 119/66; PULSE 70; RESP 18; TEMP 35.9; O2SAT 95
[2022-07-28] MEDS: Cyanocobalamin (Vitamin B-12) 1,000 MCG TABLET 5000 MCG PO (10:22)
[2022-07-28] MEDS: 0.9 % Sodium Chloride Flush 3 ML SYRINGE IVFLUSH ×3 (10:22→20:32)
[2022-07-28] MEDS: Acetaminophen 325 MG TABLET 650 MG PO ×3 (10:23→20:24)
[2022-07-28] MEDS: Aspirin Enteric Coated 81 MG TABLET.DR PO (10:23)
[2022-07-28] MEDS: amLODIPine Besylate 2.5 MG TABLET PO (10:23)
[2022-07-28] MEDS: Cholecalciferol (Vitamin D3) 25 MCG TABLET PO (10:24)
[2022-07-28] MEDS: Pravastatin Sodium 40 MG TABLET PO (10:24)
[2022-07-28] MEDS: allopurinoL 100 MG TABLET PO (10:24)
[2022-07-28] MEDS: Sertraline HCL 25 MG TABLET PO (10:24)
[2022-07-28 10:55] LABS: Glucose, Whole Blood 182 mg/dL (60-115)
--- NOTE | 2022-07-28 11:13 | HO.PM.IMPN ---
Subjective Subjective Date of Service: 07/28/22 Interval History: cc: fall, hip pain interval history:no new complaints, remains very confused Review of Systems confused Physical Exam Vital Signs: Vital Signs: Last Vital Signs Temp 96.7 F L 07/28/22 07:43 Pulse 70 07/28/22 07:43 Resp 18 07/28/22 07:43 BP 119/66 07/28/22 07:43 Pulse Ox 95 07/28/22 07:43 O2 Del Method 07/28/22 07:43 O2 Flow Rate 2 07/23/22 04:00 BMI result Body Mass Index 25.3 Const: Other: Frail, very confuse CVRRR S1S2 Lungs rhonchi Neuro: confused Objective Data Active Medications Acetaminophen (Acetaminophen 325 Mg Tablet) 650 mg PO Q6H PRN PRN Reason: Pain, Mild (Pain Scale 1-3) Last Admin: 07/19/22 17:57 Dose: 650 mg Documented By: KATHERINE Acetaminophen (Acetaminophen 325 Mg Tablet) 650 mg PO TID [facility] Last Admin: 07/28/22 10:23 Dose: 650 mg Documented By: BETTIE Allopurinol (Allopurinol 100 Mg Tablet) 100 mg PO DAILY [facility] Last Admin: 07/28/22 10:24 Dose: 100 mg Documented By: BETTIE Amlodipine Besylate (Amlodipine Besylate 2.5 Mg Tablet) 2.5 mg PO DAILY [facility]; Protocol Last Admin: 07/28/22 10:23 Dose: 2.5 mg Documented By: BETTIE Aspirin (Aspirin Enteric Coated 81 Mg Tablet.Dr) 81 mg PO DAILY [facility] Last Admin: 07/28/22 10:23 Dose: 81 mg Documented By: BETTIE Cyanocobalamin (Cyanocobalamin (Vitamin B-12) 1,000 Mcg Tablet) 5,000 mcg PO DAILY [facility] Last Admin: 07/28/22 10:22 Dose: 5,000 mcg Documented By: BETTIE Dextrose (Dextrose 50 % 25 Gm/50 Ml Syringe) 25 gm IVPUSH Q15M PRN; Protocol PRN Reason: per Hypoglycemia Standing Ord. Last Admin: 07/27/22 20:53 Dose: 25 gm Documented By: SUSAN Enoxaparin Sodium (Enoxaparin Sodium 40 Mg/0.4 Ml Syringe) 40 mg SUBCUT Q24H [facility] Last Admin: 07/27/22 12:43 Dose: 40 mg Documented By: DEJON Glucose (Glucose Gel 15 Gm Gel..Gram.) 15 gm PO Q15M PRN; Protocol PRN Reason: per Hypoglycemia Standing Ord. Insulin Human Lispro (Insulin Lispro 100 Unit/Ml 3 Ml Vial) 0 unit SUBCUT QIDACHS [facility]; Protocol Last Admin: 07/28/22 07:41 Dose: Not Given Documented By: BETTIE Non-Admin Reason: No Insulin Coverage Pharmacy Consult (Consult Rx Perform Med Rec) 1 each MISCELLANE ONCE PRN PRN Reason: Consult order Pravastatin Sodium (Pravastatin Sodium 40 Mg Tablet) 40 mg PO DAILY [facility] Last Admin: 07/28/22 10:24 Dose: 40 mg Documented By: BETTIE Sertraline HCl (Sertraline Hcl 25 Mg Tablet) 25 mg PO DAILY [facility] Last Admin: 07/28/22 10:24 Dose: 25 mg Documented By: BETTIE Sodium Chloride (0.9 % Sodium Chloride Flush 3 Ml Syringe) 3 ml IVFLUSH QSHIFT [facility] Last Admin: 07/28/22 10:22 Dose: 3 ml Documented By: BETTIE Vitamin D (Cholecalciferol (Vitamin D3) 25 Mcg Tablet) 25 mcg PO DAILY [facility] Last Admin: 07/28/22 10:24 Dose: 25 mcg Documented By: BETTIE Labs CBC & Chem 7: 07/26/22 06:21 07/26/22 06:21 Labs: Laboratory Results - last 24 hr 07/27/22 07/27/22 07/27/22 11:23 16:00 16:08 POC Glucose 109 117 H 111 07/27/22 07/27/22 07/28/22 20:02 21:40 07:30 POC Glucose 51 L* 186 H 93 07/28/22 10:50 POC Glucose 182 H Assessment and Plan (1) Closed fracture of left hip: Status: Acute Plan 87M PMH HTN, alzheimers/vascular dementia, DM, HLD, gout, lung cancer presented with mechanical fall complicated by left hip fracture mechanical fall complicated by left hip fracture POD 8 plan for STR, low-grade fever and leukocytosis and acute hypoxic respiratory failure due to covid 19 now off o2, symptomatic ,management. Fever resolved alzheimers/vascular dementia with hospital delerium pleasantly confused at baseline, but has superimposed multifaceted delirium low dose atypical antipsychotics if needed for patient safety hld statin htn continue amlodipine, continue to hold lisinopril, bp low normal DM hold metformin continue insulin sliding scale gout on allopurinol lung cancer outpatient follow up full code dvt prophylaxis - lovenox reason for continued hospitalization: awaiting str placement and active delirium if mental status desn't improve will discuss additional end of life care with family Time Spent With Patient Time: Total time managing care of this patient today ____ minutes. Quality Stroke Does the patient have a stroke diagnosis?: No VTE Prior VTE?: No VTE Risk Level:: Medical - moderate - high VTE Device Contraindication: N/A - Device Ordered VTE Drug Contraindication: Treatment Not Indicated
[2022-07-28] MEDS: Enoxaparin Sodium 40 MG/0.4 ML SYRINGE SUBCUT (12:25)
[2022-07-28] MEDS: Insulin Lispro 100 UNIT/ML 3 ML VIAL SUBCUT (12:25)
--- NOTE | 2022-07-28 12:31 | MHC.CM.PN ---
CM attempted to return a call from Daughter/Hayde @ [phone] but was only able to leave a detailed message with this CM best contact information. CM will follow.
[2022-07-28 15:00] VITALS: BP 111/60; PULSE 66; RESP 20; TEMP 36.5; O2SAT 97
[2022-07-28 16:59] LABS: Glucose, Whole Blood 83 mg/dL (60-115)
[2022-07-28 19:10] VITALS: BP 134/61; PULSE 59; RESP 20; TEMP 36.7; O2SAT 96
[2022-07-28 19:38] LABS: Glucose, Whole Blood 122 mg/dL (60-115)
[2022-07-29 03:37] VITALS: BP 113/62; PULSE 66; RESP 16; TEMP 36.6; O2SAT 100
[2022-07-29 07:26] VITALS: BP 119/71; PULSE 60; RESP 20; TEMP 36.6; O2SAT 97
[2022-07-29 07:36] LABS: Glucose, Whole Blood 103 mg/dL (60-115)
[2022-07-29 10:35] LABS: Hematocrit 37.8 % (42.0-52.0); Hemoglobin 12.7 g/dl (14.0-18.0); Mean Corpuscular HGB Conc 33.6 g/dl (31.0-36.0); Mean Corpuscular Hemoglobin 32.2 pg (27.0-33.0); Mean Corpuscular Volume 95.9 fL (80.0-98.0); Mean Platelet Volume 9.7 fL (9.4-12.4); Platelet Count 424 X10*3/uL (160-400); Red Blood Count 3.94 X10*6/uL (4.60-5.80); Red Cell Distribution Width 12.6 % (11.0-16.0); White Blood Count 10.9 X10*3/uL (4.8-10.8)
[2022-07-29 10:54] LABS: Anion Gap 13 (12-20); Blood Urea Nitrogen 28 mg/dL (9-16); Calcium 9.3 mg/dL (8.4-10.2); Carbon Dioxide 25 mmol/L (22-29); Chloride 105 mmol/L (96-108); Creatinine Clr Calc Pharmacy 58.3; Estimated Glomerular Filt Rate > 60; Glucose Random 124 mg/dL (60-115); Potassium 4.2 mmol/L (3.3-5.1); Sodium 139 mmol/L (135-145)
--- NOTE | 2022-07-29 10:57 | P.PNIM_ITS ---
Subjective Subjective Date of Service: 07/29/22 Interval History: cc: fall, hip pain interval history:he remains very confused, Review of Systems confused Physical Exam Vital Signs: Vital Signs: Last Vital Signs Temp 97.9 F 07/29/22 07:26 Pulse 60 07/29/22 07:26 Resp 20 07/29/22 07:26 BP 119/71 07/29/22 07:26 Pulse Ox 97 07/29/22 07:26 O2 Del Method 07/29/22 07:26 O2 Flow Rate 2 07/23/22 04:00 BMI result Body Mass Index 25.3 Const: Other: Frail, very confuse CVRRR S1S2 Lungs rhonchi Neuro: confused Objective Data Active Medications Acetaminophen (Acetaminophen 325 Mg Tablet) 650 mg PO Q6H PRN PRN Reason: Pain, Mild (Pain Scale 1-3) Last Admin: 07/19/22 17:57 Dose: 650 mg Documented By: KATHERINE Acetaminophen (Acetaminophen 325 Mg Tablet) 650 mg PO TID [facility] Last Admin: 07/28/22 20:24 Dose: 650 mg Documented By: YUNIER Allopurinol (Allopurinol 100 Mg Tablet) 100 mg PO DAILY [facility] Last Admin: 07/28/22 10:24 Dose: 100 mg Documented By: BETTIE Amlodipine Besylate (Amlodipine Besylate 2.5 Mg Tablet) 2.5 mg PO DAILY [facility]; Protocol Last Admin: 07/28/22 10:23 Dose: 2.5 mg Documented By: BETTIE Aspirin (Aspirin Enteric Coated 81 Mg Tablet.Dr) 81 mg PO DAILY [facility] Last Admin: 07/28/22 10:23 Dose: 81 mg Documented By: BETTIE Cyanocobalamin (Cyanocobalamin (Vitamin B-12) 1,000 Mcg Tablet) 5,000 mcg PO DAILY [facility] Last Admin: 07/28/22 10:22 Dose: 5,000 mcg Documented By: BETTIE Dextrose (Dextrose 50 % 25 Gm/50 Ml Syringe) 25 gm IVPUSH Q15M PRN; Protocol PRN Reason: per Hypoglycemia Standing Ord. Last Admin: 07/27/22 20:53 Dose: 25 gm Documented By: SUSAN Enoxaparin Sodium (Enoxaparin Sodium 40 Mg/0.4 Ml Syringe) 40 mg SUBCUT Q24H [facility] Last Admin: 07/28/22 12:25 Dose: 40 mg Documented By: BETTIE Glucose (Glucose Gel 15 Gm Gel..Gram.) 15 gm PO Q15M PRN; Protocol PRN Reason: per Hypoglycemia Standing Ord. Insulin Human Lispro (Insulin Lispro 100 Unit/Ml 3 Ml Vial) 0 unit SUBCUT QIDACHS [facility]; Protocol Last Admin: 07/29/22 10:34 Dose: Not Given Documented By: SANDIE Non-Admin Reason: No Insulin Coverage Pharmacy Consult (Consult Rx Perform Med Rec) 1 each MISCELLANE ONCE PRN PRN Reason: Consult order Pravastatin Sodium (Pravastatin Sodium 40 Mg Tablet) 40 mg PO DAILY [facility] Last Admin: 07/28/22 10:24 Dose: 40 mg Documented By: BETTIE Sertraline HCl (Sertraline Hcl 25 Mg Tablet) 25 mg PO DAILY [facility] Last Admin: 07/28/22 10:24 Dose: 25 mg Documented By: BETTIE Sodium Chloride (0.9 % Sodium Chloride Flush 3 Ml Syringe) 3 ml IVFLUSH QSHIFT [facility] Last Admin: 07/28/22 20:32 Dose: 3 ml Documented By: YUNIER Vitamin D (Cholecalciferol (Vitamin D3) 25 Mcg Tablet) 25 mcg PO DAILY [facility] Last Admin: 07/28/22 10:24 Dose: 25 mcg Documented By: BETTIE Labs CBC & Chem 7: 07/29/22 10:26 07/29/22 10:26 Labs: Laboratory Results - last 24 hr 07/28/22 07/28/22 07/29/22 16:56 19:34 07:28 MCV MCH MCHC RDW Plt Count MPV Absolute Nucleated RBC Nucleated RBC % (auto) Anion Gap Estim Creat Clear Calc Estimated GFR POC Glucose 83 122 H 103 Random Glucose Calcium 07/29/22 07/29/22 10:26 10:26 MCV 95.9 MCH 32.2 MCHC 33.6 RDW 12.6 Plt Count 424 H D MPV 9.7 Absolute Nucleated RBC 0.000 Nucleated RBC % (auto) 0.0 Anion Gap 13 Estim Creat Clear Calc 58.3 Estimated GFR > 60 POC Glucose Random Glucose 124 H Calcium 9.3 Assessment and Plan (1) Closed fracture of left hip: Status: Acute Plan 87M PMH HTN, alzheimers/vascular dementia, DM, HLD, gout, lung cancer presented with mechanical fall complicated by left hip fracture mechanical fall complicated by left hip fracture POD 9 plan for STR when low-grade fever and leukocytosis and acute hypoxic respiratory failure due to covid 19 now off o2, symptomatic ,management. Fever resolved alzheimers/vascular dementia with hospital delerium pleasantly confused at baseline, but has superimposed multifaceted delirium low dose atypical antipsychotics if needed for patient safety hold statin htn continue amlodipine, continue to hold lisinopril, bp low normal DM hold metformin continue insulin sliding scale gout on allopurinol lung cancer outpatient follow up full code dvt prophylaxis - lovenox reason for continued hospitalization: awaiting str placement and active delirium if mental status desn't improve will discuss goals of care with the daughter and confirmed that he is DNR/DNI Time Spent With Patient Time: Total time managing care of this patient today ____ minutes. Quality Stroke Does the patient have a stroke diagnosis?: No VTE Prior VTE?: No VTE Risk Level:: Medical - moderate - high VTE Device Contraindication: N/A - Device Ordered VTE Drug Contraindication: Treatment Not Indicated
[2022-07-29] MEDS: Cyanocobalamin (Vitamin B-12) 1,000 MCG TABLET 5000 MCG PO (11:14)
[2022-07-29] MEDS: Acetaminophen 325 MG TABLET 650 MG PO (11:14)
[2022-07-29] MEDS: Cholecalciferol (Vitamin D3) 25 MCG TABLET PO (11:14)
[2022-07-29] MEDS: Aspirin Enteric Coated 81 MG TABLET.DR PO (11:14)
[2022-07-29] MEDS: Pravastatin Sodium 40 MG TABLET PO (11:15)
[2022-07-29] MEDS: amLODIPine Besylate 2.5 MG TABLET PO (11:15)
[2022-07-29] MEDS: allopurinoL 100 MG TABLET PO (11:15)
[2022-07-29] MEDS: Sertraline HCL 25 MG TABLET PO (11:15)
[2022-07-29] MEDS: 0.9 % Sodium Chloride Flush 3 ML SYRINGE IVFLUSH ×2 (11:16→14:58)
[2022-07-29 11:24] LABS: Glucose, Whole Blood 110 mg/dL (60-115)
[2022-07-29] MEDS: Enoxaparin Sodium 40 MG/0.4 ML SYRINGE SUBCUT (14:57)
--- NOTE | 2022-07-29 15:15 | MHC.CM.PN ---
PER MD ROUNDS, PT NOT MEDICALLY CLEARED FOR DC TODAY DUE TO DELIRIUM. DAUGHTER CALLED MULTIPLE TIMES WITH REQUESTS FOR REFERRALS TO VARIOUS FACILITIES WITH MEM[facility] CARE UNITS. PER DAUGHTER, PP FUNDS ARE AVAILABLE IF DOES NOT MEET STR CRITERIA. REFERRALS SENT, AWAITING ACCEPTANCE.
[2022-07-29 16:00] VITALS: BP 130/66; PULSE 67; RESP 18; TEMP 36.8; O2SAT 97
[2022-07-29 17:19] LABS: Glucose, Whole Blood 110 mg/dL (60-115)
[2022-07-29 20:00] VITALS: BP 129/84; PULSE 76; RESP 16; TEMP 36.8; O2SAT 95
--- NOTE | 2022-07-29 20:11 | PM.EVENT ---
Event Note Date of Service: 07/29/22 Event Note: pt becoming more aggressive and agitated. Grabbing nurse and sitter, becoming more aggressive , will give haldol Time Spent With Patient Time: Total time managing care of this patient today ____ minutes.
[2022-07-29] MEDS: Haloperidol Lactate 5 MG/ML VIAL IVPUSH (20:12)
[2022-07-29 21:13] LABS: Glucose, Whole Blood 132 mg/dL (60-115)
[2022-07-29 23:24] VITALS: BP 128/75; PULSE 87; RESP 18; TEMP 36.6; O2SAT 98
[2022-07-30] MEDS: 0.9 % Sodium Chloride Flush 3 ML SYRINGE IVFLUSH ×3 (01:10→16:05)
--- NOTE | 2022-07-30 01:51 | PC.NURSE ---
Patient family came in for visit, was educated regarding hospital policy forbidding visits to covid positive patients, reported they had been allowed to visit five times this week, were seen patient's daughter, son in law, and in room, with daughter taking her own mask off. Nursing rice milling supervisor notified and checked policy and discussed with patient's family, who were advised to self test and left after two reminders. Patient was combattive with staff in the evening, spitting at staff, squeezing staff hands and pinching staff, yelling at staff, swearing at staff, mostly garbled speech but much of it inappropriate and including sexually inappropriate insults. Patient only partly redirectable. notified, new order for IV haldol 5 mg, administered with good effect, and patient bladder scnned for 570 ccs, and straight catheterization requiring three other staff to assist, and 450 ccs out via catheterization, patient more comfortable and resting now, 1:[address]
[2022-07-30 04:00] VITALS: BP 131/72; PULSE 78; RESP 16; TEMP 36.7; O2SAT 95
[2022-07-30 07:29] VITALS: BP 140/60; PULSE 85; RESP 16; O2SAT 97
[2022-07-30 07:42] LABS: Glucose, Whole Blood 107 mg/dL (60-115)
[2022-07-30] MEDS: amLODIPine Besylate 2.5 MG TABLET PO (08:09)
[2022-07-30] MEDS: Acetaminophen 325 MG TABLET 650 MG PO (08:10)
[2022-07-30] MEDS: Aspirin Enteric Coated 81 MG TABLET.DR PO (08:10)
[2022-07-30] MEDS: allopurinoL 100 MG TABLET PO (08:11)
[2022-07-30] MEDS: Cyanocobalamin (Vitamin B-12) 1,000 MCG TABLET 5000 MCG PO (08:11)
[2022-07-30] MEDS: Sertraline HCL 25 MG TABLET PO (08:11)
[2022-07-30] MEDS: Cholecalciferol (Vitamin D3) 25 MCG TABLET PO (08:11)
[2022-07-30] MEDS: Pravastatin Sodium 40 MG TABLET PO (08:13)
--- NOTE | 2022-07-30 08:58 | HO.PM.IMPN ---
Subjective Subjective Date of Service: 07/30/22 Interval History: cc: fall, hip pain interval history:he remains very confused, but there is report that he was conversing yesterday and ate some Review of Systems confused Physical Exam Vital Signs: Vital Signs: Last Vital Signs Temp 98.0 F 07/30/22 04:00 Pulse 85 07/30/22 07:29 Resp 16 07/30/22 07:29 BP 140/60 H 07/30/22 07:29 Pulse Ox 97 07/30/22 07:29 O2 Del Method 07/30/22 07:29 O2 Flow Rate 2 07/23/22 04:00 BMI result Body Mass Index 25.3 Const: Other: Frail, very confuse CVRRR S1S2 Lungs rhonchi Neuro: confused Objective Data Active Medications Acetaminophen (Acetaminophen 325 Mg Tablet) 650 mg PO Q6H PRN PRN Reason: Pain, Mild (Pain Scale 1-3) Last Admin: 07/19/22 17:57 Dose: 650 mg Documented By: KATHERINE Acetaminophen (Acetaminophen 325 Mg Tablet) 650 mg PO TID [facility] Last Admin: 07/30/22 08:10 Dose: 650 mg Documented By: GARY Allopurinol (Allopurinol 100 Mg Tablet) 100 mg PO DAILY [facility] Last Admin: 07/30/22 08:11 Dose: 100 mg Documented By: GARY Amlodipine Besylate (Amlodipine Besylate 2.5 Mg Tablet) 2.5 mg PO DAILY [facility]; Protocol Last Admin: 07/30/22 08:09 Dose: 2.5 mg Documented By: GARY Aspirin (Aspirin Enteric Coated 81 Mg Tablet.) 81 mg PO DAILY [facility] Last Admin: 07/30/22 08:10 Dose: 81 mg Documented By: GARY Cyanocobalamin (Cyanocobalamin (Vitamin B-12) 1,000 Mcg Tablet) 5,000 mcg PO DAILY [facility] Last Admin: 07/30/22 08:11 Dose: 5,000 mcg Documented By: GARY Dextrose (Dextrose 50 % 25 Gm/50 Ml Syringe) 25 gm IVPUSH Q15M PRN; Protocol PRN Reason: per Hypoglycemia Standing Ord. Last Admin: 07/27/22 20:53 Dose: 25 gm Documented By: SUSAN Enoxaparin Sodium (Enoxaparin Sodium 40 Mg/0.4 Ml Syringe) 40 mg SUBCUT Q24H [facility] Last Admin: 07/29/22 14:57 Dose: 40 mg Documented By: SANDIE Glucose (Glucose Gel 15 Gm Gel..Gram.) 15 gm PO Q15M PRN; Protocol PRN Reason: per Hypoglycemia Standing Ord. Insulin Human Lispro (Insulin Lispro 100 Unit/Ml 3 Ml Vial) 0 unit SUBCUT QIDACHS [facility]; Protocol Last Admin: 07/30/22 07:47 Dose: Not Given Documented By: GARY Non-Admin Reason: No Insulin Coverage Pharmacy Consult (Consult Rx Perform Med Rec) 1 each MISCELLANE ONCE PRN PRN Reason: Consult order Pravastatin Sodium (Pravastatin Sodium 40 Mg Tablet) 40 mg PO DAILY [facility] Last Admin: 07/30/22 08:13 Dose: 40 mg Documented By: GARY Sertraline HCl (Sertraline Hcl 25 Mg Tablet) 25 mg PO DAILY [facility] Last Admin: 07/30/22 08:11 Dose: 25 mg Documented By: GARY Sodium Chloride (0.9 % Sodium Chloride Flush 3 Ml Syringe) 3 ml IVFLUSH QSHIFT [facility] Last Admin: 07/30/22 08:12 Dose: 3 ml Documented By: GARY Vitamin D (Cholecalciferol (Vitamin D3) 25 Mcg Tablet) 25 mcg PO DAILY [facility] Last Admin: 07/30/22 08:11 Dose: 25 mcg Documented By: GARY Labs CBC & Chem 7: 07/29/22 10:26 07/29/22 10:26 Labs: Laboratory Results - last 24 hr 07/29/22 07/29/22 07/29/22 10:26 10:26 11:13 MCV 95.9 MCH 32.2 MCHC 33.6 RDW 12.6 Plt Count 424 H D MPV 9.7 Absolute Nucleated RBC 0.000 Nucleated RBC % (auto) 0.0 Anion Gap 13 Estim Creat Clear Calc 58.3 Estimated GFR > 60 POC Glucose 110 Random Glucose 124 H Calcium 9.3 07/29/22 07/29/22 07/30/22 17:12 20:55 07:28 MCV MCH MCHC RDW Plt Count MPV Absolute Nucleated RBC Nucleated RBC % (auto) Anion Gap Estim Creat Clear Calc Estimated GFR POC Glucose 110 132 H 107 Random Glucose Calcium Assessment and Plan (1) Closed fracture of left hip: Status: Acute Plan 87M PMH HTN, alzheimers/vascular dementia, DM, HLD, gout, lung cancer presented with mechanical fall complicated by left hip fracture mechanical fall complicated by left hip fracture POD 10 plan for STR when medically improve and covid isolation done 1/3 low-grade fever and leukocytosis and acute hypoxic respiratory failure due to covid 19 now off o2, fever resolved. alzheimers/vascular dementia with hospital delerium pleasantly confused at baseline, but has superimposed multifaceted delirium low dose atypical antipsychotics if needed for patient safety hold statin htn continue amlodipine, continue to hold lisinopril, bp low normal DM hold metformin continue insulin sliding scale gout on allopurinol lung cancer outpatient follow up full code dvt prophylaxis - lovenox reason for continued hospitalization: awaiting str placement and active delirium if mental status desn't improve will discuss goals of care with the daughter and confirmed that he is DNR/DNI Time Spent With Patient Time: Total time managing care of this patient today ____ minutes. Quality Stroke Does the patient have a stroke diagnosis?: No VTE Prior VTE?: No VTE Risk Level:: Medical - moderate - high VTE Device Contraindication: N/A - Device Ordered VTE Drug Contraindication: Treatment Not Indicated
[2022-07-30 11:22] LABS: Glucose, Whole Blood 178 mg/dL (60-115)
[2022-07-30] MEDS: Enoxaparin Sodium 40 MG/0.4 ML SYRINGE SUBCUT (11:56)
[2022-07-30] MEDS: Insulin Lispro 100 UNIT/ML 3 ML VIAL SUBCUT (11:57)
[2022-07-30 12:00] VITALS: BP 115/57; PULSE 70; RESP 16; TEMP 36.2; O2SAT 97
[2022-07-30 15:19] VITALS: BP 160/69; PULSE 72; RESP 20; TEMP 36.7; O2SAT 96
[2022-07-30 16:12] LABS: Glucose, Whole Blood 118 mg/dL (60-115)
[2022-07-30 19:09] VITALS: BP 139/65; PULSE 69; RESP 20; TEMP 36.4; O2SAT 98
[2022-07-30 19:48] LABS: Glucose, Whole Blood 102 mg/dL (60-115)
[2022-07-31 00:15] VITALS: BP 116/66; PULSE 80; RESP 20; TEMP 36.4; O2SAT 96
[2022-07-31] MEDS: Haloperidol Lactate 5 MG/ML VIAL 2.5 MG IVPUSH (00:36)
[2022-07-31 03:23] VITALS: BP 124/63; PULSE 66; RESP 16; TEMP 36.4; O2SAT 97
[2022-07-31 08:00] VITALS: BP 111/59; PULSE 66; RESP 20; O2SAT 95
[2022-07-31 09:47] LABS: Glucose, Whole Blood 117 mg/dL (60-115)
[2022-07-31] MEDS: Dextrose 5 % and Lactated Ring 1,000 ML 80 ML IVCONT (10:39)
[2022-07-31] MEDS: Enoxaparin Sodium 40 MG/0.4 ML SYRINGE SUBCUT (10:39)
[2022-07-31] MEDS: amLODIPine Besylate 2.5 MG TABLET PO (10:40)
[2022-07-31] MEDS: Cyanocobalamin (Vitamin B-12) 1,000 MCG TABLET 5000 MCG PO (10:40)
[2022-07-31] MEDS: Aspirin Enteric Coated 81 MG TABLET.DR PO (10:40)
[2022-07-31] MEDS: Sertraline HCL 25 MG TABLET PO (10:40)
[2022-07-31] MEDS: Pravastatin Sodium 40 MG TABLET PO (10:40)
[2022-07-31] MEDS: 0.9 % Sodium Chloride Flush 3 ML SYRINGE IVFLUSH ×2 (10:40)
[2022-07-31] MEDS: allopurinoL 100 MG TABLET PO (10:40)
[2022-07-31] MEDS: Cholecalciferol (Vitamin D3) 25 MCG TABLET PO (10:40)
[2022-07-31 11:29] LABS: Glucose, Whole Blood 123 mg/dL (60-115)
--- NOTE | 2022-07-31 11:35 | P.PNIM_ITS ---
Subjective Subjective Date of Service: 07/31/22 Interval History: Events from last night noted patient was noted to be agitated therefore received Haldol, at present patient is resting comfortably, has not eaten breakfast, Damon catheter with dark urine. Review of Systems Review of Systems: Yes Unobtainable due to mental status Physical Exam Vital Signs: Vital Signs: Last Vital Signs Temp 97.6 F 07/31/22 03:23 Pulse 66 07/31/22 08:00 Resp 20 07/31/22 08:00 BP 111/59 L 07/31/22 08:00 Pulse Ox 95 07/31/22 08:00 O2 Del Method 07/31/22 08:00 O2 Flow Rate 2 07/23/22 04:00 BMI result Body Mass Index 25.3 Const: Other: General: Somnolent , arousable ? Resp:? CTA bilateral, no accessory muscles used CVS: S1,S2,RRR GI: soft,non tender, non distended Neuro: Moving all 4 extremities? Psych: impaired insight? Objective Data Active Medications Acetaminophen (Acetaminophen 325 Mg Tablet) 650 mg PO Q6H PRN PRN Reason: Pain, Mild (Pain Scale 1-3) Last Admin: 07/31/22 10:39 Dose: 650 mg Documented By: MARNIE Allopurinol (Allopurinol 100 Mg Tablet) 100 mg PO DAILY [facility] Last Admin: 07/31/22 10:40 Dose: 100 mg Documented By: MARNIE Amlodipine Besylate (Amlodipine Besylate 2.5 Mg Tablet) 2.5 mg PO DAILY [facility]; Protocol Last Admin: 07/31/22 10:40 Dose: 2.5 mg Documented By: MARNIE Aspirin (Aspirin Enteric Coated 81 Mg Tablet.) 81 mg PO DAILY [facility] Last Admin: 07/31/22 10:40 Dose: 81 mg Documented By: MARNIE Cyanocobalamin (Cyanocobalamin (Vitamin B-12) 1,000 Mcg Tablet) 5,000 mcg PO DAILY [facility] Last Admin: 07/31/22 10:40 Dose: 5,000 mcg Documented By: MARNIE Dextrose (Dextrose 50 % 25 Gm/50 Ml Syringe) 25 gm IVPUSH Q15M PRN; Protocol PRN Reason: per Hypoglycemia Standing Ord. Last Admin: 07/27/22 20:53 Dose: 25 gm Documented By: SUSAN Enoxaparin Sodium (Enoxaparin Sodium 40 Mg/0.4 Ml Syringe) 40 mg SUBCUT Q24H [facility] Last Admin: 07/31/22 10:39 Dose: 40 mg Documented By: MARNIE Glucose (Glucose Gel 15 Gm Gel..Gram.) 15 gm PO Q15M PRN; Protocol PRN Reason: per Hypoglycemia Standing Ord. Dextrose/Lactated Ringer's (D5lr) 1,000 mls @ 80 mls/hr IVCONT .[id number] [facility] Stop: 07/31/22 22:59 Last Admin: 07/31/22 10:39 Dose: 80 mls/hr Documented By: MARNIE Acetaminophen (irm) 1,000 mg in 100 mls @ 400 mls/hr IV Q6H [facility] Stop: 08/02/22 10:59 Insulin Human Lispro (Insulin Lispro 100 Unit/Ml 3 Ml Vial) 0 unit SUBCUT QIDACHS [facility]; Protocol Last Admin: 07/31/22 08:24 Dose: Not Given Documented By: MARNIE Non-Admin Reason: No Insulin Coverage Pharmacy Consult (Consult Rx Perform Med Rec) 1 each MISCELLANE ONCE PRN PRN Reason: Consult order Pravastatin Sodium (Pravastatin Sodium 40 Mg Tablet) 40 mg PO DAILY [facility] Last Admin: 07/31/22 10:40 Dose: 40 mg Documented By: MARNIE Risperidone (Risperidone 0.25 Mg Tablet) 0.25 mg PO BEDTIME [facility] Sertraline HCl (Sertraline Hcl 25 Mg Tablet) 25 mg PO DAILY [facility] Last Admin: 07/31/22 10:40 Dose: 25 mg Documented By: MARNIE Sodium Chloride (0.9 % Sodium Chloride Flush 3 Ml Syringe) 3 ml IVFLUSH QSHIFT [facility] Last Admin: 07/31/22 10:40 Dose: 3 ml Documented By: MARNIE Vitamin D (Cholecalciferol (Vitamin D3) 25 Mcg Tablet) 25 mcg PO DAILY [facility] Last Admin: 07/31/22 10:40 Dose: 25 mcg Documented By: MARNIE Labs CBC & Chem 7: 07/29/22 10:26 07/29/22 10:26 Labs: Laboratory Results - last 24 hr 07/30/22 07/30/22 07/31/22 16:09 19:43 08:05 POC Glucose 118 H 102 117 H 07/31/22 11:21 POC Glucose 123 H Assessment and Plan (1) Alzheimers disease: Status: Acute (2) Closed fracture of left hip: Status: Acute Plan 87M PMH HTN, alzheimers/vascular dementia, DM, HLD, gout, lung cancer presented with mechanical fall complicated by left hip fracture mechanical fall complicated by left hip fracture POD 11 Since patient sleeping mostly will give IV Tylenol for pain control and give IV fluids 1 L due to decreased by mouth intake Follow labs at a.m. plan for STR when medically improve and covid isolation done 1/3 low-grade fever and leukocytosis and acute hypoxic respiratory failure due to covid 19 now off o2, finger oximetry 95% on room air, fever resolved. alzheimers/vascular dementia with hospital delerium pleasantly confused at baseline, but has superimposed multifaceted delirium Will add low-dose risperidone at bedtime, since required Haldol in last couple nights due to agitation htn continue amlodipine, continue to hold lisinopril, bp low normal DM decreased by mouth intake, metformin and hold continue insulin sliding scale gout continue allopurinol lung cancer outpatient follow up full code dvt prophylaxis - lovenox reason for continued hospitalization: awaiting str placement and active delirium Time Spent With Patient Time: Total time managing care of this patient today ____ minutes. Quality Stroke Does the patient have a stroke diagnosis?: No VTE Prior VTE?: No VTE Risk Level:: Medical - moderate - high VTE Device Contraindication: N/A - Device Ordered VTE Drug Contraindication: Treatment Not Indicated
[2022-07-31 11:40] VITALS: BP 118/60; PULSE 56; RESP 20; TEMP 36.4; O2SAT 98
[2022-07-31] MEDS: Acetaminophen 1,000 MG/100 ML PIGGYBACK 400 MG IV ×2 (13:43→16:57)
[2022-07-31 15:26] VITALS: BP 124/67; PULSE 72; RESP 20; TEMP 36.1; O2SAT 98
[2022-07-31 16:20] LABS: Glucose, Whole Blood 166 mg/dL (60-115)
[2022-07-31] MEDS: Insulin Lispro 100 UNIT/ML 3 ML VIAL SUBCUT (16:57)
[2022-07-31 19:24] VITALS: BP 122/81; PULSE 89; RESP 20; TEMP 36.3; O2SAT 97
[2022-07-31 19:43] LABS: Glucose, Whole Blood 85 mg/dL (60-115)
[2022-07-31] MEDS: risperiDONE 0.25 MG TABLET PO (19:51)
[2022-08-01] MEDS: 0.9 % Sodium Chloride Flush 3 ML SYRINGE IVFLUSH ×3 (00:29→23:26)
[2022-08-01] MEDS: Acetaminophen 1,000 MG/100 ML PIGGYBACK 400 MG IV ×4 (00:37→23:20)
[2022-08-01 03:24] VITALS: BP 124/63; PULSE 75; RESP 16; TEMP 36.3; O2SAT 95
[2022-08-01 07:05] LABS: Glucose, Whole Blood 110 mg/dL (60-115)
[2022-08-01 07:26] LABS: Hematocrit 33.6 % (42.0-52.0); Hemoglobin 11.3 g/dl (14.0-18.0); Mean Corpuscular HGB Conc 33.6 g/dl (31.0-36.0); Mean Corpuscular Hemoglobin 32.1 pg (27.0-33.0); Mean Corpuscular Volume 95.5 fL (80.0-98.0); Mean Platelet Volume 9.6 fL (9.4-12.4); Platelet Count 439 X10*3/uL (160-400); Red Blood Count 3.52 X10*6/uL (4.60-5.80); Red Cell Distribution Width 12.5 % (11.0-16.0); White Blood Count 11.5 X10*3/uL (4.8-10.8)
[2022-08-01 07:32] LABS: Anion Gap 11 (12-20); Blood Urea Nitrogen 20 mg/dL (9-16); Calcium 9.1 mg/dL (8.4-10.2); Carbon Dioxide 25 mmol/L (22-29); Chloride 104 mmol/L (96-108); Creatinine Clr Calc Pharmacy 59.8; Estimated Glomerular Filt Rate > 60; Glucose Random 98 mg/dL (60-115); Potassium 4.3 mmol/L (3.3-5.1); Sodium 136 mmol/L (135-145)
[2022-08-01 07:43] VITALS: BP 118/59; PULSE 60; RESP 20; TEMP 36.4; O2SAT 93
[2022-08-01 08:43] LABS: COVID-19 Test Positive (Negative); IDNOW Serial# BCCEAD1C
--- NOTE | 2022-08-01 10:11 | P.PNIM_ITS ---
Subjective Subjective Date of Service: 08/01/22 Interval History: Events from last night noted patient was noted to be agitated therefore received risperidal, at present patient is very somnolent, has not eaten breakfast, Damon catheter with dark urine. Review of Systems confused Physical Exam Vital Signs: Vital Signs: Last Vital Signs Temp 97.6 F 08/01/22 07:43 Pulse 60 08/01/22 07:43 Resp 20 08/01/22 07:43 BP 118/59 L 08/01/22 07:43 Pulse Ox 93 08/01/22 07:43 O2 Del Method 08/01/22 07:43 O2 Flow Rate 2 07/23/22 04:00 BMI result Body Mass Index 25.3 Const: Other: General: Somnolent , difficult to arouse Resp:? CTA bilateral, no accessory muscles used CVS: S1,S2,RRR GI: soft,non tender, non distended Neuro: Moving all 4 extremities? Psych: impaired insight? Objective Data Active Medications Acetaminophen (Acetaminophen 325 Mg Tablet) 650 mg PO Q6H PRN PRN Reason: Pain, Mild (Pain Scale 1-3) Last Admin: 07/19/22 17:57 Dose: 650 mg Allopurinol (Allopurinol 100 Mg Tablet) 100 mg PO DAILY [facility] Last Admin: 07/31/22 10:40 Dose: 100 mg Documented By: MARNIE Amlodipine Besylate (Amlodipine Besylate 2.5 Mg Tablet) 2.5 mg PO DAILY [facility]; Protocol Last Admin: 07/31/22 10:40 Dose: 2.5 mg Documented By: MARNIE Aspirin (Aspirin Enteric Coated 81 Mg Tablet.) 81 mg PO DAILY [facility] Last Admin: 07/31/22 10:40 Dose: 81 mg Documented By: MARNIE Cyanocobalamin (Cyanocobalamin (Vitamin B-12) 1,000 Mcg Tablet) 5,000 mcg PO DAILY [facility] Last Admin: 07/31/22 10:40 Dose: 5,000 mcg Documented By: MARNIE Dextrose (Dextrose 50 % 25 Gm/50 Ml Syringe) 25 gm IVPUSH Q15M PRN; Protocol PRN Reason: per Hypoglycemia Standing Ord. Last Admin: 07/27/22 20:53 Dose: 25 gm Documented By: SUSAN Enoxaparin Sodium (Enoxaparin Sodium 40 Mg/0.4 Ml Syringe) 40 mg SUBCUT Q24H [facility] Last Admin: 07/31/22 10:39 Dose: 40 mg Documented By: MARNIE Glucose (Glucose Gel 15 Gm Gel..Gram.) 15 gm PO Q15M PRN; Protocol PRN Reason: per Hypoglycemia Standing Ord. Acetaminophen (Ofirmev) 1,000 mg in 100 mls @ 400 mls/hr IV Q6H [facility] Stop: 08/02/22 10:59 Last Infusion: 08/01/22 04:37 Dose: 400 mls/hr Documented By: RALPH Insulin Human Lispro (Insulin Lispro 100 Unit/Ml 3 Ml Vial) 0 unit SUBCUT QIDACHS [facility]; Protocol Last Admin: 08/01/22 07:06 Dose: Not Given Documented By: KERRI Non-Admin Reason: No Insulin Coverage Pharmacy Consult (Consult Rx Perform Med Rec) 1 each MISCELLANE ONCE PRN PRN Reason: Consult order Pravastatin Sodium (Pravastatin Sodium 40 Mg Tablet) 40 mg PO DAILY [facility] Last Admin: 07/31/22 10:40 Dose: 40 mg Documented By: MARNIE Risperidone (Risperidone 0.25 Mg Tablet) 0.25 mg PO BEDTIME [facility] Last Admin: 07/31/22 19:51 Dose: 0.25 mg Documented By: DASH Sertraline HCl (Sertraline Hcl 25 Mg Tablet) 25 mg PO DAILY [facility] Last Admin: 07/31/22 10:40 Dose: 25 mg Documented By: MARNIE Sodium Chloride (0.9 % Sodium Chloride Flush 3 Ml Syringe) 3 ml IVFLUSH QSHIFT [facility] Last Admin: 08/01/22 00:29 Dose: 3 ml Documented By: CLARENCE Vitamin D (Cholecalciferol (Vitamin D3) 25 Mcg Tablet) 25 mcg PO DAILY [facility] Last Admin: 07/31/22 10:40 Dose: 25 mcg Documented By: MARNIE Labs CBC & Chem 7: 08/01/22 06:58 08/01/22 06:58 Labs: Laboratory Results - last 24 hr 07/31/22 07/31/22 07/31/22 11:21 16:13 19:37 MCV MCH MCHC RDW Plt Count MPV Absolute Nucleated RBC Nucleated RBC % (auto) Anion Gap Estim Creat Clear Calc Estimated GFR POC Glucose 123 H 166 H 85 Random Glucose Calcium COVID-19 ([facility]) COVID-19 Clin Com 08/01/22 08/01/22 08/01/22 06:58 06:58 07:01 MCV 95.5 MCH 32.1 MCHC 33.6 RDW 12.5 Plt Count 439 H MPV 9.6 Absolute Nucleated RBC 0.000 Nucleated RBC % (auto) 0.0 Anion Gap 11 L Estim Creat Clear Calc 59.8 Estimated GFR > 60 POC Glucose 110 Random Glucose 98 Calcium 9.1 COVID-19 ([facility]) COVID-19 Clin Com 08/01/22 08:10 MCV MCH MCHC RDW Plt Count MPV Absolute Nucleated RBC Nucleated RBC % (auto) Anion Gap Estim Creat Clear Calc Estimated GFR POC Glucose Random Glucose Calcium COVID-19 ([facility]) Positive A COVID-19 Clin Com See Note Assessment and Plan (1) Alzheimers disease: Status: Acute (2) Closed fracture of left hip: Status: Acute Plan 87M PMH HTN, alzheimers/vascular dementia, DM, HLD, gout, lung cancer presented with mechanical fall complicated by left hip fracture mechanical fall complicated by left hip fracture s/p ORIF, POD 12 IV Tylenol for pain control given unreliable oral intake. plan for STR when medically improve and covid isolation done 1/ Covid 19. No fever, acute hypoxia resolved. On room 94 % alzheimers/vascular dementia with hospital delerium pleasantly confused at baseline, but has superimposed multifaceted delirium--very somnolent today difficut to arouse probably from risperidal last night low-dose PRN risperidone at bedtime, Has been getting haldol at night d/t extreme agitation HTN--Norvasc, hold Lisinopril. BP wnl DM --poor oral intake, hold Metformin, SSI, IVF if sings of dehydration gout continue allopurinol lung cancer outpatient follow up DNR/DNI dvt prophylaxis - lovenox reason for continued hospitalization: awaiting str placement and active delirium. I have initiated goals of care conversation with the family in the event that he continues to progress in unfavorable Time Spent With Patient Time: Total time managing care of this patient today ____ minutes. Quality Stroke Does the patient have a stroke diagnosis?: No VTE Prior VTE?: No VTE Risk Level:: Medical - moderate - high VTE Device Contraindication: N/A - Device Ordered VTE Drug Contraindication: Treatment Not Indicated
[2022-08-01] MEDS: Pravastatin Sodium 40 MG TABLET PO (10:57)
[2022-08-01] MEDS: Cyanocobalamin (Vitamin B-12) 1,000 MCG TABLET 5000 MCG PO (10:57)
[2022-08-01] MEDS: allopurinoL 100 MG TABLET PO (10:57)
[2022-08-01] MEDS: Sertraline HCL 25 MG TABLET PO (10:57)
[2022-08-01] MEDS: amLODIPine Besylate 2.5 MG TABLET PO (10:57)
[2022-08-01] MEDS: Aspirin Enteric Coated 81 MG TABLET.DR PO (10:57)
[2022-08-01] MEDS: Cholecalciferol (Vitamin D3) 25 MCG TABLET PO (10:57)
[2022-08-01 11:05] LABS: Glucose, Whole Blood 112 mg/dL (60-115)
[2022-08-01] MEDS: Enoxaparin Sodium 40 MG/0.4 ML SYRINGE SUBCUT (12:06)
[2022-08-01 15:32] VITALS: BP 125/63; PULSE 82; RESP 18; TEMP 37.4; O2SAT 96
[2022-08-01 16:00] LABS: Glucose, Whole Blood 128 mg/dL (60-115)
[2022-08-01 19:43] VITALS: BP 117/69; PULSE 80; RESP 18; TEMP 37.1; O2SAT 97
[2022-08-01 20:41] LABS: Glucose, Whole Blood 116 mg/dL (60-115)
[2022-08-01] MEDS: risperiDONE 0.25 MG TABLET PO (20:47)
[2022-08-02] VITALS: BP 132/68; PULSE 83; RESP 18; TEMP 36.8; O2SAT 96
[2022-08-02] MEDS: Acetaminophen 1,000 MG/100 ML PIGGYBACK 400 MG IV (04:10)
[2022-08-02 07:22] VITALS: BP 123/61; RESP 12; TEMP 36.5; O2SAT 95
[2022-08-02 07:36] LABS: Glucose, Whole Blood 88 mg/dL (60-115)
[2022-08-02] MEDS: Sertraline HCL 25 MG TABLET PO (08:41)
[2022-08-02] MEDS: Cyanocobalamin (Vitamin B-12) 1,000 MCG TABLET 5000 MCG PO (08:42)
[2022-08-02] MEDS: allopurinoL 100 MG TABLET PO (08:44)
[2022-08-02] MEDS: Cholecalciferol (Vitamin D3) 25 MCG TABLET PO (08:44)
[2022-08-02] MEDS: Aspirin Enteric Coated 81 MG TABLET.DR PO (08:44)
[2022-08-02] MEDS: amLODIPine Besylate 2.5 MG TABLET PO (08:44)
[2022-08-02] MEDS: Pravastatin Sodium 40 MG TABLET PO (08:44)
[2022-08-02] MEDS: 0.9 % Sodium Chloride Flush 3 ML SYRINGE IVFLUSH ×3 (08:46→20:59)
--- NOTE | 2022-08-02 11:13 | P.PNIM_ITS ---
Subjective Subjective Date of Service: 08/02/22 Interval History: He is doing much better this morning without agiation, and daughter there and talking to him he answers basic questions, this is a signficant difference Review of Systems confused Physical Exam Vital Signs: Vital Signs: Last Vital Signs Temp 97.7 F 08/02/22 07:22 Pulse 83 08/02/22 00:00 Resp 12 08/02/22 07:22 BP 123/61 08/02/22 07:22 Pulse Ox 95 08/02/22 07:22 O2 Del Method 08/02/22 07:22 O2 Flow Rate 2 07/23/22 04:00 BMI result Body Mass Index 25.3 Const: Other: General: Somnolent , difficult to arouse Resp:? CTA bilateral, no accessory muscles used CVS: S1,S2,RRR GI: soft,non tender, non distended Neuro: Moving all 4 extremities? Psych: impaired insight? Objective Data Active Medications Acetaminophen (Acetaminophen 325 Mg Tablet) 650 mg PO Q6H PRN PRN Reason: Pain, Mild (Pain Scale 1-3) Last Admin: 07/19/22 17:57 Dose: 650 mg Allopurinol (Allopurinol 100 Mg Tablet) 100 mg PO DAILY [facility] Last Admin: 08/02/22 08:44 Dose: 100 mg Documented By: STACEY Amlodipine Besylate (Amlodipine Besylate 2.5 Mg Tablet) 2.5 mg PO DAILY [facility]; Protocol Last Admin: 08/02/22 08:44 Dose: 2.5 mg Documented By: STACEY Aspirin (Aspirin Enteric Coated 81 Mg Tablet.) 81 mg PO DAILY [facility] Last Admin: 08/02/22 08:44 Dose: 81 mg Documented By: STACEY Cyanocobalamin (Cyanocobalamin (Vitamin B-12) 1,000 Mcg Tablet) 5,000 mcg PO DAILY [facility] Last Admin: 08/02/22 08:42 Dose: 5,000 mcg Documented By: STACEY Dextrose (Dextrose 50 % 25 Gm/50 Ml Syringe) 25 gm IVPUSH Q15M PRN; Protocol PRN Reason: per Hypoglycemia Standing Ord. Last Admin: 07/27/22 20:53 Dose: 25 gm Documented By: SUSAN Enoxaparin Sodium (Enoxaparin Sodium 40 Mg/0.4 Ml Syringe) 40 mg SUBCUT Q24H [facility] Last Admin: 08/01/22 12:06 Dose: 40 mg Documented By: KERRI Glucose (Glucose Gel 15 Gm Gel..Gram.) 15 gm PO Q15M PRN; Protocol PRN Reason: per Hypoglycemia Standing Ord. Insulin Human Lispro (Insulin Lispro 100 Unit/Ml 3 Ml Vial) 0 unit SUBCUT QIDACHS [facility]; Protocol Last Admin: 08/02/22 08:13 Dose: Not Given Documented By: STACEY Non-Admin Reason: No Insulin Coverage Pharmacy Consult (Consult Rx Perform Med Rec) 1 each MISCELLANE ONCE PRN PRN Reason: Consult order Pravastatin Sodium (Pravastatin Sodium 40 Mg Tablet) 40 mg PO DAILY [facility] Last Admin: 08/02/22 08:44 Dose: 40 mg Documented By: STACEY Risperidone (Risperidone 0.25 Mg Tablet) 0.25 mg PO BEDTIME [facility] Last Admin: 08/01/22 20:47 Dose: 0.25 mg Documented By: YUNIER Sertraline HCl (Sertraline Hcl 25 Mg Tablet) 25 mg PO DAILY [facility] Last Admin: 08/02/22 08:41 Dose: 25 mg Documented By: STACEY Sodium Chloride (0.9 % Sodium Chloride Flush 3 Ml Syringe) 3 ml IVFLUSH QSHIFT [facility] Last Admin: 08/02/22 08:46 Dose: 3 ml Documented By: STACEY Vitamin D (Cholecalciferol (Vitamin D3) 25 Mcg Tablet) 25 mcg PO DAILY [facility] Last Admin: 08/02/22 08:44 Dose: 25 mcg Documented By: STACEY Labs CBC & Chem 7: 08/01/22 06:58 08/01/22 06:58 Labs: Laboratory Results - last 24 hr 08/01/22 08/01/22 08/02/22 15:56 20:37 07:20 POC Glucose 128 H 116 H 88 Assessment and Plan (1) Alzheimers disease: Status: Acute (2) Closed fracture of left hip: Status: Acute Plan 87M PMH HTN, alzheimers/vascular dementia, DM, HLD, gout, lung cancer presented with mechanical fall complicated by left hip fracture mechanical fall causing left hip fracture s/p ORIF on 07/20 Tyelenol for pain, if not able to take by mouth, IV APAP plan for STR when medically improve and covid isolation done 1/3 Covid 19. No fever, acute hypoxia resolved. On room 94 % alzheimers/vascular dementia with hospital delerium pleasantly confused at baseline, but has superimposed multifaceted delirium--very somnolent today difficut to arouse probably from risperidal last night low-dose PRN risperidone at bedtime, Has been getting haldol at night d/t extreme agitation HTN--Norvasc, hold Lisinopril. BP wnl DM --poor oral intake, hold Metformin, SSI, IVF if sings of dehydration gout continue allopurinol lung cancer outpatient follow up DNR/DNI dvt prophylaxis - lovenox Need for inaptient: awaiting rehab Time Spent With Patient Time: Total time managing care of this patient today ____ minutes. Quality Stroke Does the patient have a stroke diagnosis?: No VTE Prior VTE?: No VTE Risk Level:: Medical - moderate - high VTE Device Contraindication: N/A - Device Ordered VTE Drug Contraindication: Treatment Not Indicated
--- NOTE | 2022-08-02 11:21 | PM.PNORT ---
Subjective Subjective Date of Service: 08/02/22 Interval history: POD 13 s/p Left hip IMN no overnight events resting in bed, no concerns denies cp, sob, palpitations Physical Exam Vital Signs: Vital Signs: Last Vital Signs Temp 97.7 F 08/02/22 07:22 Pulse 83 08/02/22 00:00 Resp 12 08/02/22 07:22 BP 123/61 08/02/22 07:22 Pulse Ox 95 08/02/22 07:22 O2 Del Method 08/02/22 07:22 O2 Flow Rate 2 07/23/22 04:00 BMI result Body Mass Index 25.3 Const: General: cooperative, healthy appearing and no acute distress Resp: Effort & Inspection: normal respiratory effort and able to speak in complete sentences Cardio: Rate: regular rate Peripheral pulses: Peripheral pulses 2+ throughout GI: Palpation (GI): Soft to palpation Skin: General skin exam: no rashes or lesions noted Extrem: Other: incision clean dry and intact. Misbah intact. No erythema or effusion. Calf supple nontender. Neurovascularly intact. Procedures Date of Service Date of Service: 08/02/22 Progress Note: A&P Assessment and plan (1) Closed fracture of left hip: Status: Acute Assessment and Plan: continue lovenox for an additional 4 weeks continue PT/OT wbat , gait training misbah removed today f/u with ortho in 4 weeks for routine xrays Time Spent With Patient Time: Total time managing care of this patient today ____ minutes. Quality Stroke Does the patient have a stroke diagnosis?: No VTE Prior VTE?: No VTE Risk Level:: Medical - moderate - high VTE Device Contraindication: N/A - Device Ordered VTE Drug Contraindication: Treatment Not Indicated
[2022-08-02 11:22] LABS: Glucose, Whole Blood 137 mg/dL (60-115)
[2022-08-02] MEDS: Enoxaparin Sodium 40 MG/0.4 ML SYRINGE SUBCUT (13:11)
[2022-08-02] MEDS: risperiDONE 0.25 MG TABLET PO ×2 (15:28→20:59)
--- NOTE | 2022-08-02 15:31 | MHC.CM.PN ---
PT HAS BEEN ACCEPTED BY [facility] FOR 08/03/22. DAUGHTER AWARE AND IN AGREEMENT. TRANSPORT BOOKED FOR 11 AM WITH [facility].
[2022-08-02 15:41] VITALS: BP 128/59; PULSE 70; RESP 15; TEMP 36.9; O2SAT 98
[2022-08-02 16:53] LABS: Glucose, Whole Blood 126 mg/dL (60-115)
[2022-08-02 19:19] VITALS: BP 108/63; PULSE 59; RESP 15; TEMP 36.7; O2SAT 97
[2022-08-02 20:24] LABS: Glucose, Whole Blood 95 mg/dL (60-115)
[2022-08-03 03:34] VITALS: RESP 17
[2022-08-03 07:27] LABS: Glucose, Whole Blood 94 mg/dL (60-115)
[2022-08-03 07:54] VITALS: BP 95/50; PULSE 69; RESP 16; TEMP 36.6; O2SAT 95
[2022-08-03] MEDS: Cyanocobalamin (Vitamin B-12) 1,000 MCG TABLET 5000 MCG PO (08:26)
[2022-08-03] MEDS: Cholecalciferol (Vitamin D3) 25 MCG TABLET PO (08:27)
[2022-08-03] MEDS: Pravastatin Sodium 40 MG TABLET PO (08:27)
[2022-08-03] MEDS: allopurinoL 100 MG TABLET PO (08:27)
[2022-08-03] MEDS: Sertraline HCL 25 MG TABLET PO (08:27)
[2022-08-03] MEDS: 0.9 % Sodium Chloride Flush 3 ML SYRINGE IVFLUSH (08:27)
[2022-08-03] MEDS: Aspirin Enteric Coated 81 MG TABLET.DR PO (08:27)
[2022-08-03] MEDS: amLODIPine Besylate 2.5 MG TABLET PO (08:27)
--- NOTE | 2022-08-03 08:52 | MHC.CM.PN ---
Patient has been medically cleared for dc to SNF/STR today. Patient will dc to [facility] today at 11AM via [facility]. CM spoke with Patient's Daughter/HCP/Deneen @ [phone] and addressed IMM with her (original was left at bedside per Deneen's request and a copy has been placed on the chart). Patient and Deneen are aware of and in agreement with the dc plan.
--- NOTE | 2022-08-03 09:22 | PM.DS ---
DS: Providers Provider Date of Service: 08/03/22 Date of admission: 07/18/22 22:18 Primary care physician: Quique Zambrano MD Consults: 07/18/22 22:16 Consult to Orthopedics Routine Consulting Provider: Olayinka Rosa Reason for consultation: Intertrochanteric fracture of the left femur. DS: Diagnosis Discharge Diagnosis (1) Closed fracture of left hip: Status: Acute DS: Summary Hospital Course Hospital Course: from initial hpi: 87M PMH HTN, alzheimers/vascular dementia, DM, HLD, gout, lung cancer, presented with mechanical fall. patient lives with , daughter nearby, uses cane to ambulate. on radiation for recently diagnosed local lung cancer. patient appeared to have mechanical fall at home, fell on left side, was in pain, unable to stand. denies LOC, chest pain, sob. in ED found to have left trochanteric fracture. hospital course: Patient was admitted for mechanical fall resulting in left hip fracture. He underwent left hip IMN. Postoperative course was initially unremarkable. Before surgery had a low-grade fever leukocytosis this was likely reactive in did not recur. Patient had a routine covid screen for discharge that was positive on 07/21/22 and subsequently had low grade fever and ended up developping hypoxia and delirium. Covid treated with decadron and oxygen. Hypoxia quickly resolved and no longer need O2, however he continued to have delirium on top of dementia for quite sometimes, this likely related to change in scenery, hypoxia, narcotics so we should avoid narc and use tylenol for pain. Due to persistent agitation was given low dose risperidal which seemed to have worked quite well and is presently at his baseline demented state. For patient's Alzheimer's/vascular dementia will continue on aspirin statin. For hyperlipidemia he will continue on statin. For hypertension his lisinopril has been held due to low normal blood pressures. This can be restarted as his blood pressure increases. For diabetes he was continued on insulin. For gout is continue allopurinol. For lung cancer he can follow up outpatient. Patient will be discharged to skilled nurse facility for short-term rehab. Final ortho recommendation: continue lovenox for an additional 4 weeks continue PT/OT wbat , gait training misbah removed today f/u with ortho in 4 weeks for routine xrays Time Spent with Patient Time attestation: Total time managing care of this patient today ____ minutes. Discharge coordination time: Greater than 30 minutes Quality: Safe Use of Opioids Does Pt have an Active Cancer Diagnosis on the Problem List?: No Quality: Stroke Does the patient have a stroke diagnosis?: No Physical Exam Vital Signs: Vital Signs: Last Vital Signs Temp 97.8 F 08/03/22 07:54 Pulse 69 08/03/22 07:54 Resp 16 08/03/22 07:54 BP 95/50 L 08/03/22 07:54 Pulse Ox 95 08/03/22 07:54 O2 Del Method 08/03/22 07:54 O2 Flow Rate 2 07/23/22 04:00 BMI result Body Mass Index 25.3 DS: Data Data Completed and Pending Labs on day of discharge: Laboratory Results - last 24 hr 08/02/22 08/02/22 08/02/22 11:13 16:46 20:16 POC Glucose 137 H 126 H 95 08/03/22 07:16 POC Glucose 94 Discharge Plan Discharge Anticipated Discharge Date/Time: 08/03/22 09:17 Patient Disposition: Xfer SNF Discharge Diagnosis: hip fracture, delirium and covid 19 Referrals: [facility] [Outside] - 1 Week Quique Zambrano MD [Primary Care Provider] - 1 Week Boris Hernandez PA-C [Physician Associate Store Leader] - 2 Weeks (08/05/22 2:30 [facility] Boris Hernandez PA-C) Discharge Medications: New enoxaparin 40 mg/0.4 mL Syringe 40 mg subcut Q24H Qty: 0 0RF acetaminophen 325 mg Tablet 650 mg PO Q6H PRN (Reason: Pain, Mild (Pain Scale 1-3)) Qty: 30 0RF Continued amlodipine 2.5 mg tablet 1 tab PO DAILY allopurinol 100 mg tablet 1 tab PO DAILY metformin 500 mg tablet extended release 24 hr 1 tab PO TID aspirin 81 mg Capsule 81 mg PO DAILY pravastatin 40 mg tablet 1 tab PO DAILY sertraline 25 mg tablet 1 tab PO DAILY cholecalciferol (vitamin D3) 25 mcg (1,000 unit) capsule 25 mcg PO DAILY mecobalamin (vitamin B12) 5,000 mcg tablet,chewable 5,000 mcg PO DAILY Discontinued lisinopril 20 mg tablet 1 tab PO DAILY Discharge Orders: Discharge Order (Routine); Ordered 08/03/22 Ordered By: Errol Yepez Diet: Advance to usual diet Activity on Discharge: As tolerated Stand Alone Forms: Patient Portal Discharge page Care Plan Goals: recovery Health Concerns: hip fracture Plan of Treatment: pt, follow up ortho Assessment: Gait training, strengthening, ADLs continue lovenox for an additional 4 weeks from today continue PT/OT wbat , gait training misbah removed already f/u with ortho in 4 weeks for routine xrays No narcotics, tylenol for pain Keep dressing clean,dry and intact-no showering or tub baths
--- NOTE | 2022-08-03 14:39 | MHC.CM.PN ---
RADHA received a call from [employer] @ [place] Liaison/Tracey who indicated that Patient is there and expressing SI; Tracey was requesting [facility] input. RADHA communicated with CM Director/Joan and indicated to Tracey that Patient perhaps should be sent directly to the ER or Crisis called or [facility] depending on their assessment of the level of threat/severity involved with Patient's statements. RADHA stated that it is likely that Patient should be sent to the nearest hospital based on behaviors the SNF is witnessing. Tracey stated, thank you good advice.
== END 2022-08-03 12:00 | disposition skilled nursing facility (03) | DRG 480 ==
LOC: HO.ED 20:13 → HO.EDOVER 22:26 → HO.S3 23:47 → HO.IMC 07-21 15:48
PROVIDERS: Hospitalist; Orthopaedic Surgery; Physician Assistant; Admitting Provider Internal Medicine; Emergency Provider Internal Medicine; PCP Internal Medicine; Visit Provider Internal Medicine
PROC: 0QS736Z Reposition Left Upper Femur with Intramedullary Internal Fixation Device, Percutaneous Approach (ICD-10-PCS; principal; 2022-07-20 14:00)
DX: S72.142A Displaced intertrochanteric fracture of left femur, initial encounter for closed fracture (principal); J96.01 Acute respiratory failure with hypoxia; U07.1 COVID-19; C34.12 Malignant neoplasm of upper lobe, left bronchus or lung; F05 Delirium due to known physiological condition; W01.0XXA Fall on same level from slipping, tripping and stumbling without subsequent striking against object, initial encounter; E78.5 Hyperlipidemia, unspecified; M10.9 Gout, unspecified; Z66 Do not resuscitate; E11.9 Type 2 diabetes mellitus without complications; G30.9 Alzheimer's disease, unspecified; F02.80 Dementia in other diseases classified elsewhere, unspecified severity, without behavioral disturbance, psychotic disturbance, mood disturbance, and anxiety; F01.50 Vascular dementia, unspecified severity, without behavioral disturbance, psychotic disturbance, mood disturbance, and anxiety; Z87.891 Personal history of nicotine dependence; Z79.82 Long term (current) use of aspirin; Z79.84 Long term (current) use of oral hypoglycemic drugs; Z79.899 Other long term (current) drug therapy
CPT/HCPCS: 36415; 70450; 71045; 72125; 72192; 73502; 80048; 80053; 81001; 82947; 84484; 85014; 85018; 85025; 85027; 85610; 86850; 86900; 86901; 87635; 93005; 97162; 97166; 97530; 99285; C1713; C1758; C1769; J0131; J0690; J1100; J1170; J1650; J2270; J2370; J2405; J2795; J3010